=== PATIENT | female | born 1955 | race African-American/Black ===

== ENCOUNTER → 2016-06-26 | Outpatient (CLI) | payer OTHER ==
[~2016-06-26] MED LIST: AMLO10TA2 PO; ASPI1TAB69 PO; LISI40TA PO; METO50TA PO; MULT1TAB84 PO; POTA10TA2 PO; ROSU1TAB6 PO; TRAM50TA PO
[2016-06-26 07:15] LABS: AUTOMATED NEUTROPHIL # 3.2 TH/MM3 (1.8-7.7); BASOPHIL # 0.1 TH/MM3 (0-0.2); BASOPHIL % 0.8 % (0.0-2.0); EOSINOPHIL # 0.3 TH/MM3 (0-0.4); EOSINOPHIL % 4.5 % (0.0-4.0); HEMATOCRIT 36.2 % (35.0-46.0); HEMO FLAGS DIFF FINAL; LYMPH % 36.2 % (9.0-44.0); LYMPHOCYTE # 2.3 TH/MM3 (1.0-4.8); MEAN CELL VOLUME 93.5 FL (80.0-100.0); MEAN CORPUSCULAR HEMOGLOBIN 31.7 PG (27.0-34.0); MONO % 8.8 % (0.0-8.0); NEUT % 49.7 % (16.0-70.0); PLATELET COUNT 287 TH/MM3 (150-450); RED BLOOD COUNT 3.87 MIL/MM3 (4.00-5.30); RED CELL DISTRIBUTION WIDTH 12.6 % (11.6-17.2); WHITE BLOOD COUNT 6.4 TH/MM3 (4.0-11.0)
[2016-06-26 07:40] LABS: BICARBONATE 22.5 MEQ/L (21.0-32.0); POTASSIUM 3.5 MEQ/L (3.5-5.1)
== END ==
LOC: CLAB 06:43
PROVIDERS: ATTEND Family Medicine
DX: E21.0 Primary hyperparathyroidism (principal); E78.5 Hyperlipidemia, unspecified; I10 Essential (primary) hypertension; E55.9 Vitamin D deficiency, unspecified
CPT/HCPCS: 36415; 80048; 82306; 82330; 83970; 85025

== ENCOUNTER → 2016-12-24 | Outpatient (CLI) | payer OTHER ==
[2016-12-24 07:41] LABS: HEMATOCRIT 37.8 % (35.0-46.0); MEAN CELL VOLUME 94.8 FL (80.0-100.0); MEAN CORPUSCULAR HEMOGLOBIN 32.3 PG (27.0-34.0); MEAN CORPUSCULAR HGB CONC 34.1 % (32.0-36.0); PLATELET COUNT 269 TH/MM3 (150-450); RED BLOOD COUNT 3.99 MIL/MM3 (4.00-5.30); RED CELL DISTRIBUTION WIDTH 12.8 % (11.6-17.2); REVIEW FLAG FINAL; WHITE BLOOD COUNT 6.9 TH/MM3 (4.0-11.0)
[2016-12-24 08:08] LABS: ANION GAP 9 MEQ/L (5-15); AST (GOT) 24 U/L (15-37); BICARBONATE 24.2 MEQ/L (21.0-32.0); BLOOD UREA NITROGEN 21 MG/DL (7-18); CHLORIDE 108 MEQ/L (98-107); GLOMERULAR FILTRATION RATE 83 ML/MIN (>89); GLUCOSE,FASTING 90 MG/DL (74-99); POTASSIUM 3.9 MEQ/L (3.5-5.1); SODIUM (NA) 141 MEQ/L (136-145)
[2016-12-24 08:19] LABS: ALKALINE PHOSPHATASE 67 U/L (45-117); ALT (GPT) 34 U/L (10-53); HDL CHOLESTEROL 102.6 MG/DL (40.0-60.0); LDL CHOLESTEROL 75 MG/DL (0-99); TOTAL BILIRUBIN ADULT 0.7 MG/DL (0.2-1.0)
== END ==
LOC: CLAB 07:04
PROVIDERS: ATTEND Family Medicine
DX: E21.3 Hyperparathyroidism, unspecified (principal)
CPT/HCPCS: 36415; 80053; 80061; 82330; 83970; 84443; 85027

== ENCOUNTER → 2017-06-27 | Outpatient (CLI) | payer OTHER | LOC: CLAB 06:58 | PROVIDERS: ATTEND Surgery | DX: E21.3 Hyperparathyroidism, unspecified (principal) | CPT/HCPCS: 36415; 82310; 82330; 83970 ==

== ENCOUNTER → 2017-08-01 | Outpatient (CLI) | payer OTHER ==
[2017-08-01 08:22] LABS: AUTOMATED NEUTROPHIL # 2.8 TH/MM3 (1.8-7.7); BASOPHIL % 0.7 % (0.0-2.0); EOSINOPHIL # 0.3 TH/MM3 (0-0.4); EOSINOPHIL % 5.6 % (0.0-4.0); HEMATOCRIT 38.3 % (35.0-46.0); HEMOGLOBIN 13.1 GM/DL (11.6-15.3); LYMPH % 38.4 % (9.0-44.0); LYMPHOCYTE # 2.3 TH/MM3 (1.0-4.8); MEAN CELL VOLUME 95.1 FL (80.0-100.0); MEAN CORPUSCULAR HEMOGLOBIN 32.4 PG (27.0-34.0); MEAN CORPUSCULAR HGB CONC 34.1 % (32.0-36.0); MEAN PLATELET VOLUME 7.6 FL (7.0-11.0); MONO % 7.8 % (0.0-8.0); MONOCYTE # 0.5 TH/MM3 (0-0.9); NEUT % 47.5 % (16.0-70.0); PLATELET COUNT 275 TH/MM3 (150-450); RED BLOOD COUNT 4.03 MIL/MM3 (4.00-5.30); RED CELL DISTRIBUTION WIDTH 12.8 % (11.6-17.2); WHITE BLOOD COUNT 5.9 TH/MM3 (4.0-11.0)
--- NOTE | 2017-08-01 20:00 | EKG ---
Date Performed: 08/01/2017 Time Performed: 08:30:00 PTAGE: 62 years EKG: Sinus rhythm with PVC(s). Ant/septal and lateral ST-T changes may be due to myocardial ischemia Since previous tr acing, no significant change noted Abnormal ECG PREVIOUS TRACING : 07/24/2014 09.04 DOCTOR: David Romo Interpretating Date/Time 08/01/2017 19:55:56
== END ==
LOC: CLAB 07:56
PROVIDERS: ATTEND Surgery
DX: E21.3 Hyperparathyroidism, unspecified (principal); R94.31 Abnormal electrocardiogram [ECG] [EKG]
CPT/HCPCS: 36415; 85025; 93005

== ENCOUNTER → 2017-09-18 | Outpatient (CLI) | payer OTHER | LOC: CLAB 07:36 | PROVIDERS: ATTEND Surgery | DX: E21.3 Hyperparathyroidism, unspecified (principal) | CPT/HCPCS: 36415; 82306; 82310; 82330; 83970 ==

== ENCOUNTER → 2017-10-10 | Outpatient (CLI) | payer OTHER ==
[2017-10-10 08:34] LABS: AUTOMATED NEUTROPHIL # 3.3 TH/MM3 (1.8-7.7); BASOPHIL # 0.1 TH/MM3 (0-0.2); BASOPHIL % 0.8 % (0.0-2.0); EOSINOPHIL # 0.3 TH/MM3 (0-0.4); EOSINOPHIL % 4.6 % (0.0-4.0); HEMATOCRIT 39.8 % (35.0-46.0); HEMOGLOBIN 13.5 GM/DL (11.6-15.3); LYMPH % 36.3 % (9.0-44.0); LYMPHOCYTE # 2.4 TH/MM3 (1.0-4.8); MEAN CELL VOLUME 94.6 FL (80.0-100.0); MEAN CORPUSCULAR HEMOGLOBIN 32.2 PG (27.0-34.0); MEAN CORPUSCULAR HGB CONC 34.1 % (32.0-36.0); MONO % 9.4 % (0.0-8.0); MONOCYTE # 0.6 TH/MM3 (0-0.9); NEUT % 48.9 % (16.0-70.0); PLATELET COUNT 280 TH/MM3 (150-450); RED CELL DISTRIBUTION WIDTH 13.1 % (11.6-17.2); WHITE BLOOD COUNT 6.7 TH/MM3 (4.0-11.0)
== END ==
LOC: CLAB 08:02
PROVIDERS: ATTEND Surgery
DX: E21.3 Hyperparathyroidism, unspecified (principal)
CPT/HCPCS: 36415; 85025

== ENCOUNTER 2017-10-21 05:47 | Observation (INO) | payer OTHER ==
[~2017-10-21] VITALS: Ht 157.5 cm; Wt 80.9 kg
[2017-10-21] MEDS ORDERED: ASPI-516 CHEW (06:15)
[2017-10-21] MEDS ORDERED: CHLORHEXIDINE GLUCONATE 2 % 1 PACK (2 CLOTHS) TOPICAL PRN (06:15)
[2017-10-21] MEDS ORDERED: POVIDONE IODINE 5% (ANTISEPSIS KIT) 4 APPLICATIONS EACH NARE PRN (06:15)
[2017-10-21] MEDS ORDERED: SODIUM CHLORID 0.9% 500 ML IV PRN (06:15)
[2017-10-21] MEDS ORDERED: METOPROLOL TARTRATE 25 MG TAB PO PRN (06:15)
[2017-10-21] MEDS ORDERED: LACTATED RINGER'S 1000 ML IV PRN (06:15)
[2017-10-21] MEDS ORDERED: ACETAMINOPHEN 1000 MG/100 ML 100 ML IV ONE (06:31)
[2017-10-21] MEDS ORDERED: PROPOFOL 200 MG/20 ML AMP IV ONE (12:00)
[2017-10-21] MEDS ORDERED: LIDOCAINE HCL 1% PF 5 ML SYRINGE OTHER ONE (12:00)
[2017-10-21] MEDS ORDERED: LABETALOL HCL 100 MG/20 ML VIAL IV ONE (12:00)
[2017-10-21] MEDS ORDERED: DEXAMETHASONE SOD PHOS 4 MG/ML VIAL IV ONE (12:00)
[2017-10-21] MEDS ORDERED: ONDANSETRON HCL 4 MG/2 ML VIAL IV ONE (12:00)
[2017-10-21] MEDS ORDERED: SUCCINYLCHOLINE CHLORIDE 100 MG/5 ML SYRINGE IV PUSH ONE (12:00)
[2017-10-21] MEDS ORDERED: DO NOT ADM ANY ANTICOAGULANT DRUGS PRN (13:21)
[2017-10-21] MEDS ORDERED: MIDAZOLAM HCL 2 MG/2 ML VIAL ONE (13:30)
[2017-10-21] MEDS ORDERED: *ENALAPRILAT 1.25 MG/ML VIAL PERIprocedural Use ONLY ONE (13:32)
[2017-10-21] MEDS ORDERED: *morphine SULFATE 8 MG/ML PERIprocedure ONLY ONE (13:42)
[2017-10-21] MEDS ORDERED: MORPHINE SULFATE 2 MG/ML SYRINGE ONE (15:04)
[2017-10-21] MEDS ORDERED: SODIUM CHLORIDE IV PRN ×2 (15:45)
[2017-10-21] MEDS ORDERED: CALCIUM GLUCONATE IV PRN ×4 (15:45)
[2017-10-21] MEDS ORDERED: NS IV PRN ×2 (15:45)
[2017-10-21] MEDS ORDERED: CALCIUM CARBONATE 1.25 GM (CA 500 MG) TAB PO PRN (15:45)
[2017-10-21] MEDS ORDERED: MORPHINE SULFATE 4 MG/ML INJ IV PRN (15:45)
[2017-10-21] MEDS ORDERED: oxyCODONE/ACETAMINOPHEN 5 MG/325 MG TAB PO PRN ×2 (16:00)
[2017-10-21] MEDS ORDERED: ONDANSETRON ODT 4 MG TAB PO PRN (16:00)
--- NOTE | 2017-10-21 17:15 | PD.OP ---
cc: Rambo Aguilar MD; Philippe Redd MD Operative Report Date of Surgery: Oct 21, 2017 Preoperative Diagnosis: Hyperparathyroidism Postoperative Diagnosis: Hyperparathyroidism Procedure: Attempted MIRP with neck exploration and resection of the right and left superior parathyroid glands Anesthesia: General endotracheal Surgeon: Rambo Aguilar Reed Polisher(s): Beti Macdonald, MS3 Operation and Findings: Operative findings: The patient was found to have enlarged left lobe of the thyroid is slightly enlarged right lobe of the thyroid. She was also found to have 2 greatly enlarged parathyroid glands one in the left superior and one in the right superior position. The right inferior parathyroid gland was of normal size and character. The left inferior gland was not identified. Operative procedure: Patient brought to the operating room after satisfactory general endotracheal anesthesia obtained, the neck was hyperextended, then prepped and draped in the usual sterile fashion. A 2.5 cm incision was made transversely several centimeters above the sternal notch and carried down sharply through the subcutaneous tissue with the cautery being used for hemostasis. The platysma was divided transversely, after which the midline was identified and incised longitudinally. Dissection was then carried out to identify the left inferior pole of the thyroid. An attempt was made to bring the inferior lobe of the thyroid as well as the middle portion of the gland into the incision but due to the grossly enlarged size of the thyroid it was not possible. It was decided that point to proceed with a formal neck exploration and a transverse standard collar incision was made, carried out sharply through the subcutaneous tissue with cautery being used for hemostasis. The dissection was carried out to match the first portion of the procedure and a plane was developed anterior to the fascia of the sternocleidomastoids superiorly and inferiorly. A thyroid retractor was then placed and the midline of the neck opened longitudinally. The left lobe of the thyroid gland was then rotated medially and dissection carried out superiorly whereupon the grossly enlarged superior parathyroid gland was identified. It was left in place and dissection was carried out to identify the left inferior parathyroid gland. Despite an extensive search no gland was identified. Attention was then turned to the superior lobe of the thyroid and the superior parathyroid on the right side was identified with minimal difficulty and with minimal dissection. It was removed by dividing its blood supply with the harmonic scalpel and was sent for frozen section which revealed hyperplastic parathyroid tissue. The dissection was then carried out in the area of the right inferior gland and it was identified with minimal difficulty and seemed to be of normal size and character as noted above. Throughout the dissection of both sides the nerve monitor was used to identify the position of the recurrent nerve and it was identified in its course particularly on the right side. He remained intact throughout the entire procedure. Attention was then again turned to the left inferior side and once again no glandular material could be identified lateral to the thyroid to the extent of the carotid sheath and medially to the trachea. The gland was not identified posterior to the left inferior pole of the thyroid nor was seen to be within 4 cm of dissected tissue inferior to the inferior pole of the thyroid. At that point the left superior parathyroid gland was removed by dividing its blood supply with the harmonic scalpel. Is sent for permanent pathology and hemostasis was checked for and found to be satisfactory. A piece of Seprafilm was crushed and placed posterior to the gland on both sides as well as anterior to the gland. Small amount of powdered Surgicel was placed within the wound. Hemostasis was again checked for and found to be satisfactory. The fascia of the midline was closed with a running 3-0 Vicryl suture. The subcutaneous tissue was closed with interrupted 3-0 Vicryl sutures and the skin closed with interrupted 4-0 PDS subcuticular stitches. Steri-Strips were applied the patient was then awakened and taken from the operating room, in satisfactory condition, having tolerated the procedure without problem. Estimated blood loss was 75 mL's. The instrument, sponge, needle counts were reported as being correct 2 at the end of the procedure. Rambo Aguilar MD Oct 21, 2017 17:15
[2017-10-21] MEDS: METOPROLOL TARTRATE 50 MG TAB PO SCH (20:14)
[2017-10-21] MEDS: MORPHINE SULFATE 8 MG/ML INJ IV PUSH PRN (20:17)
[2017-10-21 20:18] VITALS: BP 172/93; PULSE 87; RESP 16; TEMP 97.9; O2SAT 94
[2017-10-22] VITALS: BP 157/77; PULSE 82; RESP 18; TEMP 98; O2SAT 92
[2017-10-22 04:00] VITALS: BP 155/78; PULSE 89; RESP 17; TEMP 97.3; O2SAT 93
[2017-10-22 08:00] VITALS: BP 150/81; PULSE 87; RESP 18; TEMP 97.9; O2SAT 94
[2017-10-22] MEDS: MORPHINE SULFATE 8 MG/ML INJ IV PUSH PRN (08:30)
[2017-10-22] MEDS ORDERED: POTASSIUM CHLORIDE 10 MEQ CONTROLLED RELEASE TAB PO SCH (09:00)
[2017-10-22] MEDS ORDERED: LISINOPRIL 20 MG TAB PO SCH (09:00)
[2017-10-22] MEDS: METOPROLOL TARTRATE 50 MG TAB PO SCH (09:47)
[2017-10-22 12:00] VITALS: BP 144/73; PULSE 95; RESP 17; TEMP 97.3; O2SAT 94
[2017-10-22] MEDS ORDERED: MORPHINE SULFATE 4 MG/ML INJ IV PRN ×2 (14:15)
[2017-10-22] MEDS ORDERED: oxyCODONE/ACETAMINOPHEN 5 MG/325 MG TAB PO PRN ×2 (14:30)
[2017-10-22] MEDS ORDERED: ONDANSETRON ODT 4 MG TAB PO PRN (14:30)
== END 2017-10-22 16:48 | disposition home or self-care (01) ==
LOC: HSDC 05:47 → N07A 13:20 → HSDC 13:20 → N07A 16:13
PROVIDERS: ADMIT Surgery; ATTEND Surgery
DX: E21.3 Hyperparathyroidism, unspecified (principal); I10 Essential (primary) hypertension; E78.5 Hyperlipidemia, unspecified
CPT/HCPCS: 00320; 60500; 78808; 82310; 88305; 88331; 96374; 96376; A9500; C1765; G0378; J0131; J0330; J1100; J2250; J2270; J2405; J3010

== ENCOUNTER → 2017-10-30 | Outpatient (CLI) | payer OTHER ==
[~2017-10-30] MED LIST changes: +ASPI-516 CHEW; -ASPI1TAB69 PO; -MULT1TAB84 PO; -ROSU1TAB6 PO; -TRAM50TA PO
[2017-10-30 08:48] LABS: ALBUMIN 3.4 GM/DL (3.4-5.0); ALT (GPT) 23 U/L (10-53); AST (GOT) 16 U/L (15-37); BICARBONATE 23.4 MEQ/L (21.0-32.0); BLOOD UREA NITROGEN 18 MG/DL (7-18); CALCIUM 8.8 MG/DL (8.5-10.1); CHLORIDE 112 MEQ/L (98-107); CHOLESTEROL 237 MG/DL (120-200); CREATININE 0.86 MG/DL (0.50-1.00); GLOMERULAR FILTRATION RATE 81 ML/MIN (>89); GLUCOSE,FASTING 103 MG/DL (74-99); SODIUM (NA) 144 MEQ/L (136-145)
[2017-10-30 08:51] LABS: ALKALINE PHOSPHATASE 70 U/L (45-117); CHOLESTEROL/ HDL RATIO 5.39 RATIO; HDL CHOLESTEROL 43.9 MG/DL (40.0-60.0); LDL CHOLESTEROL 162 MG/DL (0-99); TOTAL BILIRUBIN ADULT 0.5 MG/DL (0.2-1.0); TOTAL PROTEIN 7.2 GM/DL (6.4-8.2); TRIGLYCERIDES 158 MG/DL (42-150)
== END ==
LOC: CLAB 07:33
PROVIDERS: ATTEND Family Medicine
DX: E21.3 Hyperparathyroidism, unspecified (principal); E78.2 Mixed hyperlipidemia
CPT/HCPCS: 36415; 80053; 80061; 82330; 83970

== ENCOUNTER 2018-02-15 16:36 | Inpatient (IN) ==
[2018-02-15] MEDS ORDERED: MethylPREDNISolone Sod Succinate Inj 125 MG/2 ML Vial IV.PUSH ONE (16:40)
[2018-02-15] MEDS ORDERED: Famotidine PF Inj 20 MG/2 ML Vial IV.PUSH ONE (16:40)
--- NOTE | 2018-02-15 17:09 | ED ---
HPI General Chief complaint: Allergic Reaction Stated complaint: swollen tongue Time Seen by Provider: 02/15/18 16:40 Source: patient and family Mode of arrival: ambulatory Limitations: no limitations History of Present Illness HPI narrative: 63-year-old female that presents to the ED for evaluation of allergic reaction. Patient reports that she has been having swelling tongue for the past 2-3 hours. Per patient and family member they went to have [employer] today for lunch and after this she developed the swelling. Patient herself did not want to come but they took Benadryl with minimal relief. essentially "force the patient " To come here. Patient denies any history of this in the past. She does state that she had shellfish today but she had shellfish in the past. She denies any other medical issues. She does take lisinopril. Denies any urinary or bowel movement issues. No chest pain or shortness of breath. Her tongue is severely swelling and most of the history is obtained from the as patient cannot really talk for the most part. Related Data Home Medications Medication Instructions Recorded Confirmed amlodipine 10 mg PO DAILY 02/15/18 02/15/18 lisinopril 10 mg PO DAILY 02/15/18 02/15/18 metoprolol tartrate 50 mg PO TID 02/15/18 02/15/18 potassium chloride [Klor-Con 10] 10 meq PO DAILY 02/15/18 02/15/18 rosuvastatin [Crestor] 10 mg PO DAILY 02/15/18 02/15/18 Allergies Allergy/AdvReac Type Severity Reaction Status Date / Time hydrocodone Allergy Severe Dizziness Unverified 02/15/18 16:45 shellfish derived Allergy Anaphylaxis Verified 02/15/18 16:45 Review of Systems ROS: all other systems reviewed are negative [facility] Medical History Medical History Hypercholesteremia (Acute) Hypertension (Acute) Surgical History Surgical History H/O thyroidectomy (Acute) Social History Social History Substance History: No History of Abuse Second Hand Smoke Exposure: No Smoking Status: Unknown if ever smoked How Often Do You Have a Drink Containing Alcohol: Unable to Obtain Recent Travel in [facility] within the Last 8 Weeks: No Recent Out of Country Travel within the Last 8 Weeks: No Immunization History Tetanus Immunization: <5 Years Exam Narrative Exam Narrative: GENERAL: Well-appearing SKIN: Focused skin assessment warm/dry. HEAD: Atraumatic. Normocephalic. EYES: Pupils equal and round. No scleral icterus. No injection or drainage. ENT: No nasal bleeding or discharge. Mucous membranes pink and moist. Tongue is midline but severely swollen coming out of the mouth. Part of the uvula is visualized and does not appear to be swollen. Very hard to visualize however. NECK: Trachea midline. No JVD. CARDIOVASCULAR: Regular rate and rhythm. No murmur appreciated. RESPIRATORY: No accessory muscle use. Clear to auscultation. Breath sounds equal bilaterally. GASTROINTESTINAL: Abdomen soft, non-tender, nondistended. Hepatic and splenic margins not palpable. MUSCULOSKELETAL: No obvious deformities. No clubbing. No cyanosis. No edema. Full range of motion of the upper and lower extremities bilaterally. 2+ pulses bilaterally. NEUROLOGICAL: Awake and alert. No obvious cranial nerve deficits. Motor grossly within normal limits. Normal speech. PSYCHIATRIC: Appropriate mood and affect; insight and judgment normal. Course Initial Documented Vital Signs Temperature 98.8 F 02/15/18 16:49 Pulse Rate 102 H 02/15/18 16:49 Respiratory Rate 24 02/15/18 16:49 Blood Pressure 196/103 H 02/15/18 16:49 Pulse Oximetry 98 02/15/18 16:49 Last Documented Vital Signs Temperature 98.2 F 02/15/18 19:30 Pulse Rate 108 H 02/15/18 22:00 Respiratory Rate 16 02/15/18 22:00 Blood Pressure 173/86 H 02/15/18 22:00 Pulse Oximetry 100 02/15/18 22:00 Medical Decision Making MDM Narrative Medical decision making narrative: 63-year-old female that presents to the ED for evaluation of swelling to the mouth. Patient was properly examined and was found to have signs and symptoms concerning for anaphylaxis and angioedema. My attending Dr. Betancur was made aware of findings and immediately evaluate the patient. Patient was started on epinephrine, Solu-Medrol, Benadryl and Pepcid. My attendings recommendation FFP was started. Patient was reassessed after 30 minutes and still very symptomatic. My attending Dr. Lightburn himself spoke with anesthesia as well as ENT. Anesthesia came at that site and recommended ENT consult. Anesthesia will take the patient to the OR to get him intubated as the symptoms continue. My attending himself spoke with Dr. Mejia for intensive care unit who agreed to admission to his service. Patient was admitted to the intensive care unit. Patient and family agree with procedure and plan. They understand reasons to need intubation to protect airway secondary to significant angioedema. Medical Screen Exam Complete: Yes Emergency Medical Condition: Yes Differential Diagnosis Differential Diagnosis: Angioedema versus anaphylaxis versus allergic reaction Medical Records Medical records reviewed: Yes I reviewed the patient's medical records. Lab Data Lab results reviewed: Yes I reviewed the patient's lab results. Result diagrams: 02/15/18 16:56 02/15/18 16:56 Lab Results 02/15/18 02/15/18 02/15/18 Range/Units 16:51 16:56 16:56 WBC 8.8 (4.0-11.0) th/mm3 RBC 4.09 (4.00-5.30) mil/mm3 Hgb 13.6 (11.6-15.3) gm/dL Hct 39.3 (35.0-46.0) % MCV 96.2 (80.0-100.0) fL MCH 33.2 (27.0-34.0) pg MCHC 34.6 (32.0-36.0) % RDW 12.8 (11.6-17.2) % Plt Count 281 (150-450) th/mm3 MPV 8.2 (7.0-11.0) fL Neut % (Auto) 56.3 (16.0-70.0) % Lymph % (Auto) 30.5 (9.0-44.0) % Charlton % (Auto) 8.9 H (0.0-8.0) % Eos % (Auto) 3.6 (0.0-4.0) % Baso % (Auto) 0.7 (0.0-2.0) % Neut # (Auto) 5.0 (1.8-7.7) th/mm3 Lymph # (Auto) 2.7 (1.0-4.8) th/mm3 Charlton # (Auto) 0.8 (0.0-0.9) th/mm3 Eos # (Auto) 0.3 (0.0-0.4) th/mm3 Baso # (Auto) 0.1 (0.0-0.2) th/mm3 WBC Differential . Differential Comment Auto diff final Puncture Site Patient Temperature O2 Saturation (90-100) % ABG pH (7.380-7.420) ABG pCO2 (38-42) mmHg ABG pO2 (61-120) mmHG ABG HCO3 (22-26) mmol/L ABG O2 Content (12.0-20.0) Vol % ABG Base Excess (-2-2) mmol/L ABG Methemoglobin (0-2) % Mervin Test Hemoglobin (12.0-16.0) G/DL Carboxyhemoglobin (0-4) % O2 Delivery Device Vent Setting Inspired O2 % Critical Value Sodium (136-145) meq/L Potassium (3.5-5.1) meq/L Chloride (98-107) meq/L Carbon Dioxide (21.0-32.0) meq/L Anion Gap (5-15) meq/L BUN (7-18) mg/dL Creatinine (0.50-1.00) mg/dL Estimated GFR (>89) mL/min POC Glucose (68-110) mg/dl Random Glucose (74-106) mg/dL Calcium (8.5-10.1) mg/dL Blood Type O Positive Blood Type Recheck Not needed Antibody Screen Negative Blood Bank Comment 02/15/18 02/15/18 02/15/18 Range/Units 16:56 18:57 21:05 WBC (4.0-11.0) th/mm3 RBC (4.00-5.30) mil/mm3 Hgb (11.6-15.3) gm/dL Hct (35.0-46.0) % MCV (80.0-100.0) fL MCH (27.0-34.0) pg MCHC (32.0-36.0) % RDW (11.6-17.2) % Plt Count (150-450) th/mm3 MPV (7.0-11.0) fL Neut % (Auto) (16.0-70.0) % Lymph % (Auto) (9.0-44.0) % Charlton % (Auto) (0.0-8.0) % Eos % (Auto) (0.0-4.0) % Baso % (Auto) (0.0-2.0) % Neut # (Auto) (1.8-7.7) th/mm3 Lymph # (Auto) (1.0-4.8) th/mm3 Charlton # (Auto) (0.0-0.9) th/mm3 Eos # (Auto) (0.0-0.4) th/mm3 Baso # (Auto) (0.0-0.2) th/mm3 WBC Differential Differential Comment Puncture Site Right radial Patient Temperature 98.6 O2 Saturation 97 (90-100) % ABG pH 7.33 L (7.380-7.420) ABG pCO2 41 (38-42) mmHg ABG pO2 150 H (61-120) mmHG ABG HCO3 21 L (22-26) mmol/L ABG O2 Content 18.3 (12.0-20.0) Vol % ABG Base Excess -3.7 L (-2-2) mmol/L ABG Methemoglobin 1.4 (0-2) % Mervin Test Present Hemoglobin 13.3 (12.0-16.0) G/DL Carboxyhemoglobin 0.7 (0-4) % O2 Delivery Device Ventilator Vent Setting Prvc/16/500/1.0/+5 Inspired O2 50 % Critical Value No Sodium 144 (136-145) meq/L Potassium 4.1 (3.5-5.1) meq/L Chloride 109 H (98-107) meq/L Carbon Dioxide 24.4 (21.0-32.0) meq/L Anion Gap 11 (5-15) meq/L BUN 19 H (7-18) mg/dL Creatinine 1.05 H (0.50-1.00) mg/dL Estimated GFR 64 L (>89) mL/min POC Glucose 189 H (68-110) mg/dl Random Glucose 95 (74-106) mg/dL Calcium 9.3 (8.5-10.1) mg/dL Blood Type Blood Type Recheck Antibody Screen Blood Bank Comment Imaging Data Radiologist's impression: Chest X-Ray 02/15/18 00:00 CONCLUSION: 1. ET tube tip in good position. 2. Subsegmental consolidative infiltrate left lower lung. Discharge Plan Discharge Disposition Patient Disposition: 30 Still Patient Discharge Details Diagnosis: Allergic angioedema, Severe tongue swelling Physicians Team ED Provider: Jus Betancur ED Midlevel Provider: Jerome Davis Primary Care Provider: Philippe Redd Attending Provider: Jerri Mejia Discharge Interventions Interventions: ED Discharge Assessment Last Done: 02/15/18 18:18 Vital Signs Last Done: 02/15/18 17:30 Status ED Status: Left Department Discharge Information Discharge Date/Time: 02/15/18 18:00
[2018-02-15 17:12] LABS: Baso # (Auto) 0.1 th/mm3 (0.0-0.2); Baso % (Auto) 0.7 % (0.0-2.0); Eos # (Auto) 0.3 th/mm3 (0.0-0.4); Eos % (Auto) 3.6 % (0.0-4.0); Hematocrit 39.3 % (35.0-46.0); Hemoglobin 13.6 gm/dL (11.6-15.3); Lymph # (Auto) 2.7 th/mm3 (1.0-4.8); Lymph % (Auto) 30.5 % (9.0-44.0); Mean Corpuscular HGB Conc 34.6 % (32.0-36.0); Mean Corpuscular Hemoglobin 33.2 pg (27.0-34.0); Mean Corpuscular Volume 96.2 fL (80.0-100.0); Mean Platelet Volume 8.2 fL (7.0-11.0); Mono # (Auto) 0.8 th/mm3 (0.0-0.9); Mono % (Auto) 8.9 % (0.0-8.0); Neut % (Auto) 56.3 % (16.0-70.0); Platelet Count 281 th/mm3 (150-450); Red Blood Count 4.09 mil/mm3 (4.00-5.30); Red Cell Distribution Width 12.8 % (11.6-17.2); White Blood Count 8.8 th/mm3 (4.0-11.0)
[2018-02-15 17:25] LABS: Calcium 9.3 mg/dL (8.5-10.1); Carbon Dioxide 24.4 meq/L (21.0-32.0); Potassium 4.1 meq/L (3.5-5.1)
[2018-02-15] MEDS ORDERED: Succinylcholine Inj 200 MG/10 ML Vial ONE ×2 (17:33→17:35)
[2018-02-15] MEDS ORDERED: Etomidate Inj 40 MG/20 ML Vial IV.PUSH ONE (17:36)
[2018-02-15] MEDS ORDERED: Sod Chloride 0.9% Inj 1,000 ML IV.CONT SCH (17:45)
[2018-02-15] MEDS ORDERED: Esmolol Bolus Inj 100 MG/10 ML Vial IV.PUSH ONE (17:54)
[2018-02-15] MEDS ORDERED: Glycopyrrolate Inj 1 MG/5 ML Syringe IV.PUSH ONE (17:54)
[2018-02-15] MEDS ORDERED: LIDOCAINE 4% TOPICAL ONE (18:02)
[2018-02-15] MEDS ORDERED: Propofol 1000 mg/100 ml Inj 1,000 MG/100 ML BOTTLE ONE (18:32)
--- NOTE | 2018-02-15 18:32 | P.HPCC ---
History of Present Illness Primary Care Physician: Philippe Redd MD History of Present Illness: 63-year-old female that presents for evaluation of allergic reaction. Patient reports that she has been having swelling tongue for the past 2-3 hours. Per patient and family member they went to have [employer] today for lunch and after this she developed the swelling. Patient herself did not want to come but they took Benadryl with minimal relief. essentially "force the patient " To come here. Patient denies any history of this in the past. She does state that she had shellfish today but she had shellfish in the past. She denies any other medical issues. She does take lisinopril for many years. Denies any urinary or bowel movement issues. No chest pain or shortness of breath. Her tongue is severely swelling and most of the history is obtained from the as patient cannot really talk for the most part. In the emergency department her airway appears to be significantly compromised and she was taken to operating room for fibroscopy nasal intubation by canvassing manager. Inpatient Certification: I certify that the inpatient services were ordered in accordance with Medicare regulations governing the order. This includes certification that hospital inpatient services are reasonable and necessary and in the case of services not specified as inpatient-only under 42 CFR 419.22(n), that they are appropriately provided as inpatient services in accordance to with the 2-midnight benchmark under 43 CFR 412.3(e) Estimated Total Length of Stay (Days): 5 Plans for Post Hospital Care: Not yet determined Review of Systems unobtainable due to endotracheal tube PMFSH - History History Provided By: Patient - Medical History Medical History: Medical History (Last Reviewed 02/15/18 @ 17:07 by KATHRYN Bazan) Hypercholesteremia Hypertension - Surgical History Surgical History: Surgical History (Last Reviewed 02/15/18 @ 17:07 by KATHRYN Bazan) H/O thyroidectomy - Tobacco History Second Hand Smoke Exposure: No Smoking Status: Former smoker - Alcohol History How Often Do You Have a Drink Containing Alcohol: 4 or more times a week - Substance Use History Substance History: No History of Abuse - Travel History Recent Travel in the [place] Within the Last 8 Weeks: No Recent Travel Out of the Country Within the Last 8 Weeks: No - Immunization History Tetanus Immunization: <5 Years Medications and Allergies Active Medications: Active Medications Albuterol (Duoneb Neb (Prn)) 1 ampul NEB Q2HR NEB PRN PRN Reason: SHORTNESS OF BREATH Albuterol (Duoneb Neb (Lm)) 1 ampul NEB Q6HR NEB LM Chlorhexidine Gluconate (Chlorhexidine 2% Cloth) 3 pack TOPICAL DAILY@0400 LM Stop: 02/21/18 03:59 Chlorhexidine Gluconate (Chlorhexidine 2% Cloth) 3 pack TOPICAL DAILY@0400 PRN PRN Reason: Extra cloth needed Stop: 02/21/18 03:59 Diphenhydramine HCl (Benadryl Inj) 50 mg IV.PUSH Q6H LM Famotidine (Pepcid) 20 mg PO BID LM Famotidine (Pepcid Pf Inj) 20 mg IV.PUSH Q12HR LM Fentanyl Citrate (Fentanyl Inj) 50 mcg IV.PUSH Q1H PRN PRN Reason: SEE LABEL COMMENTS Sodium Chloride (Ns Inj) 1,000 mls @ 125 mls/hr IV.CONT .Q8H LM Stop: 02/16/18 01:44 Sodium Chloride (Ns Flush) 2 ml IV.FLUSH PRN PRN PRN Reason: FLUSH AFTER USING IV ACCESS Last Admin: 02/15/18 16:54 Dose: 2 ml Sodium Chloride (Ns Flush) 2 ml IV.FLUSH PRN PRN PRN Reason: FLUSH AFTER USING IV ACCESS Allergies Allergy/AdvReac Type Severity Reaction Status Date / Time hydrocodone Allergy Severe Dizziness Unverified 02/15/18 16:45 shellfish derived Allergy Anaphylaxis Verified 02/15/18 16:45 Home Medications Medication Instructions Recorded Confirmed Type amlodipine 10 mg PO DAILY 02/15/18 02/15/18 History lisinopril 10 mg PO DAILY 02/15/18 02/15/18 History metoprolol tartrate 50 mg PO TID 02/15/18 02/15/18 History potassium chloride [Klor-Con 10] 10 meq PO DAILY 02/15/18 02/15/18 History rosuvastatin [Crestor] 10 mg PO DAILY 02/15/18 02/15/18 History Results - Labs CBC & Chem 7: 02/15/18 16:56 02/15/18 16:56 Labs: Short CBC 02/15/18 Range/Units 16:56 WBC 8.8 (4.0-11.0) th/mm3 Hgb 13.6 (11.6-15.3) gm/dL Hct 39.3 (35.0-46.0) % Plt Count 281 (150-450) th/mm3 [facility] 02/15/18 16:56 Sodium 144 Potassium 4.1 Chloride 109 H Carbon Dioxide 24.4 BUN 19 H Creatinine 1.05 H Calcium 9.3 - Imaging Impressions Chest X-Ray 02/15/18 00:00 CONCLUSION: 1. ET tube tip in good position. 2. Subsegmental consolidative infiltrate left lower lung. Exam Vital signs: Vital Signs 02/15/18 16:49 02/15/18 17:15 02/15/18 17:30 Temperature 98.8 F Pulse Rate 102 H 118 H Respiratory Rate 24 21 Blood Pressure 196/103 H 195/96 H 190/86 H Pulse Oximetry 99 96 Intake & Output 02/14/18 02/15/18 02/15/18 18:59 06:59 18:59 Weight 76.204 kg - Constitutional moderate distress - Routine HEENT Exam Head: Present: normocephalic, atraumatic Eye: Present: PERRL ENT: Present: mucous membranes moist - Routine Neck Exam Present: supple. Absent: JVD, carotid bruit - Routine Respiratory Exam Present: patient mechanically ventilated. Absent: stridor, wheezes, crackles - Routine Cardiovascular Exam Present: RRR, S1, S2. Absent: murmur, gallop, rubs - Routine Abdominal Exam Present: soft, normoactive bowel sounds. Absent: tenderness, distended - Routine Extremities Exam Absent: cyanosis, clubbing - Routine Skin Exam Present: intact. Absent: cyanosis, erythema - Routine Neurological Exam Present: moving all extremities Septic Shock Reassessment Septic shock perfusion: reassessment completed Caprini VTE Risk Assessment Caprini VTE Risk Assessment: Moderate/High Risk (score >= 2) Caprini Risk Assessment Model: Point Value = 1 Point Value = 2 Point Value = 3 Point Value = 5 Age 41-60 Minor surgery BMI > 25 kg/m2 Swollen legs Varicose veins or History of unexplained or recurrent spontaneous Oral contraceptives or hormone replacement Sepsis (< 1 month) Serious lung disease, including pneumonia (< 1 month) Abnormal pulmonary function Acute myocardial infarction Congestive heart failure (< 1 month) History of inflammatory bowel disease Medical patient at bed rest Age 61-74 Arthroscopic surgery Major open surgery (> 45 min) Laparoscopic surgery (> 45 min) Malignancy Confined to bed (> 72 hours) Immobilizing plaster cast Central venous access Age >= 75 History of VTE Family history of VTE Factor V Leiden Prothrombin [id number] Lupus anticoagulant Anticardiolipin antibodies Elevated serum homocysteine Heparin-induced thrombocytopenia Other congenital or acquired thrombophilia Stroke (< 1 month) Elective arthroplasty Hip, pelvis, or leg fracture Acute spinal cord injury (< 1 month) Prophylaxis Regimen: Total Risk Factor Score Risk Level Prophylaxis Regimen 0-1 Low Early ambulation 2 Moderate Order ONE of the following: *Sequential Compression Device (SCD) *Heparin 5000 units SQ BID 3-4 Higher Order ONE of the following medications: *Heparin 5000 units SQ TID *Enoxaparin/Lovenox 40 mg SQ daily (WT < 150 kg, CrCl > 30 mL/min) *Enoxaparin/Lovenox 30 mg SQ daily (WT < 150 kg, CrCl > 10-29 mL/min) *Enoxaparin/Lovenox 30 mg SQ BID (WT < 150 kg, CrCl > 30 mL/min) AND/OR *Sequential Compression Device (SCD) 5 or more Highest Order ONE of the following medications: *Heparin 5000 units SQ TID (Preferred with Epidurals) *Enoxaparin/Lovenox 40 mg SQ daily (WT < 150 kg, CrCl > 30 mL/min) *Enoxaparin/Lovenox 30 mg SQ daily (WT < 150 kg, CrCl > 10-29 mL/min) *Enoxaparin/Lovenox 30 mg SQ BID (WT < 150 kg, CrCl > 30 mL/min) AND *Sequential Compression Device (SCD) Assessment and Plan - Assessment and Plan Plan: Respiratory formula -Intubated for an airway protection -No weaning until angioedema resolve -Vent bundle Angioedema -Continue steroid -H1 H2 antagonists Hypertension -Continue metoprolol and Norvasc -Labetalol PRN Dyslipidemia -Rosuvastatin DVT GI prophylaxis -Teds SCDs -Subcu Lovenox -Pepcid 35 minutes of critical care
[2018-02-15] MEDS ORDERED: *morphine SULFATE 4 MG/ML PERIprocedure ONLY ONE (18:56)
[2018-02-15] MEDS ORDERED: *morphine SULFATE 10 MG/ML PERIprocedure ONLY ONE (19:06)
--- NOTE | 2018-02-15 19:42 | XR ---
EXAM DATE: 02/15/2018 12:00 AM EDT AGE/SEX: 63 years / Female INDICATIONS: E-T tube placement. CLINICAL DATA: This is the patient's initial encounter. Patient reports that signs and symptoms have been present for 1 day and indicates a pain score of Nonresponsive. MEDICAL/SURGICAL HISTORY: Non-responsive. Non-responsive. COMPARISON: [facility] [place], CHEST PA & LAT, 07/24/2014. . FINDINGS: Endotracheal tube tip well above the daily. Gastric tube traverses the [id number]. Patchy areas o f consolidation with air bronchograms in the left lower lung. The right lung is clear. Both hemidiaph ragms well delineated. CONCLUSION: 1. ET tube tip in good position. 2. Subsegmental consolidative infiltrate left lower lung. Electronically signed by: Celestino Leiva MD 02/15/2018 7:40 PM EDT
[2018-02-15] MEDS: fentaNYL Citrate Inj 100 MCG/2 ML Ampul IV.PUSH PRN (20:26)
[2018-02-15] MEDS: Propofol 1000 mg/100 ml Inj 1,000 MG/100 ML BOTTLE IV.CONT PRN (20:51)
[2018-02-15] MEDS: Famotidine PF Inj 20 MG/2 ML Vial IV.PUSH SCH (20:51)
[2018-02-15] MEDS: Labetalol HCl Inj 100 MG/20 ML Vial IV.PUSH PRN (20:56)
[2018-02-15] MEDS: Famotidine 20 MG Tablet PO SCH (21:11)
[2018-02-15 21:29] LABS: ABG Base Excess -3.7 mmol/L (-2-2); ABG PCO2 41 mmHg (38-42); ABG PO2 150 mmHG (61-120)
[2018-02-15] MEDS: Oral Hygiene Kit OROPHARYNG SCH (23:51)
[2018-02-16] MEDS: Labetalol HCl Inj 100 MG/20 ML Vial IV.PUSH PRN (03:18)
[2018-02-16] MEDS: Chlorhexidine Gluconate 2% 1 Pack (2 Cloths) TOPICAL SCH (03:59)
[2018-02-16] MEDS: Oral Hygiene Kit OROPHARYNG SCH ×4 (03:59→23:51)
[2018-02-16] MEDS ORDERED: Chlorhexidine Gluconate 2% 1 Pack (2 Cloths) TOPICAL PRN (04:00)
[2018-02-16] MEDS: Propofol 1000 mg/100 ml Inj 1,000 MG/100 ML BOTTLE IV.CONT PRN ×5 (04:46→19:47)
[2018-02-16] MEDS: fentaNYL Citrate Inj 100 MCG/2 ML Ampul IV.PUSH PRN ×2 (04:48→06:37)
[2018-02-16] MEDS ORDERED: niCARdipine Inj 25 MG in Sodium Chlor 0.9% Inj 240 ML IV.CONT PRN (07:16)
[2018-02-16] MEDS ORDERED: hydrALAZINE HCl Inj 20 MG/ML Vial IV.PUSH PRN (07:17)
--- NOTE | 2018-02-16 07:20 | P.PNCC ---
Subjective Subjective Remarks/Hospital Course: 63-year-old female that presents for evaluation of allergic reaction. Patient reports that she has been having swelling tongue for the past 2-3 hours. Per patient and family member they went to have [employer] today for lunch and after this she developed the swelling. Patient herself did not want to come but they took Benadryl with minimal relief. essentially "force the patient " To come here. Patient denies any history of this in the past. She does state that she had shellfish today but she had shellfish in the past. She denies any other medical issues. She does take lisinopril for many years. No chest pain or shortness of breath. Her tongue is severely swollen and most of the history is obtained from the as patient cannot really talk for the most part. In the emergency department her airway appears to be significantly compromised and she was taken to operating room for fibroscopy nasal intubation by coloring room worker. SUBJ 02/16: Remains intubated heavily sedated with propofol. Severe tongue swelling with protrusion. Hypotensive overnight I have ordered Cardene infusion and as needed IV labetalol. at the bedside updated Objective Vital Signs / I&O: Vital Signs 02/15/18 16:49 02/15/18 17:15 02/15/18 17:30 Temperature 98.8 F Pulse Rate 102 H 118 H Respiratory Rate 24 21 Blood Pressure 196/103 H 195/96 H 190/86 H Pulse Oximetry 99 96 02/15/18 18:43 02/15/18 18:45 02/15/18 19:00 Temperature 98.5 F Pulse Rate 126 H 124 H 120 H Respiratory Rate 16 16 16 Blood Pressure 171/95 H 149/84 H 154/81 H Pulse Oximetry 98 98 99 02/15/18 19:08 02/15/18 19:15 02/15/18 19:20 Temperature Pulse Rate 118 H 120 H Respiratory Rate 16 16 18 Blood Pressure 143/73 H 160/87 H Pulse Oximetry 99 100 02/15/18 19:30 02/15/18 20:00 02/15/18 20:45 Temperature 98.2 F Pulse Rate 118 H 120 H Respiratory Rate 16 16 Blood Pressure 146/73 H 187/97 H Pulse Oximetry 100 100 02/15/18 21:00 02/15/18 21:03 02/15/18 22:00 Temperature Pulse Rate 105 H 108 H Respiratory Rate 16 16 16 Blood Pressure 178/92 H 173/86 H Pulse Oximetry 100 100 100 02/15/18 23:00 02/16/18 00:00 02/16/18 00:21 Temperature 99.4 F Pulse Rate 108 H 113 H Respiratory Rate 16 16 17 Blood Pressure 167/83 H 169/85 H Pulse Oximetry 100 100 99 02/16/18 01:00 02/16/18 02:00 02/16/18 03:00 Temperature Pulse Rate 112 H 111 H 118 H Respiratory Rate 16 16 16 Blood Pressure 166/81 H 176/82 H 205/96 H Pulse Oximetry 99 99 99 02/16/18 03:15 02/16/18 03:45 02/16/18 04:00 Temperature Pulse Rate 120 H 111 H 112 H Respiratory Rate 18 19 19 Blood Pressure 191/93 H 206/93 H 189/92 H Pulse Oximetry 99 99 99 02/16/18 04:30 02/16/18 05:00 02/16/18 06:00 Temperature Pulse Rate 117 H 113 H 113 H Respiratory Rate 19 19 18 Blood Pressure 201/92 H 181/84 H 199/88 H Pulse Oximetry 99 99 99 02/16/18 06:30 Temperature 100.5 F H Pulse Rate 111 H Respiratory Rate 18 Blood Pressure 180/82 H Pulse Oximetry 98 Intake & Output 02/15/18 02/16/18 02/16/18 18:59 06:59 18:59 Intake Total 1800 / 1800 Output Total 1550 / 1550 Balance 250 / 250 Weight 76.204 kg 82.9 kg Intake: IV 1200 / 1200 Diprivan 1000 mg/100 ml Inj 1, 100 / 100 000 mg In 100 ml @ 0 mls/hr . ROUTE .[facility]K-[facility] Rx#:[id number] Diprivan 1000 mg/100 ml Inj 1, 100 / 100 000 mg In 100 ml @ 5 MCG/KG/MIN 2.529 mls/hr IV.CONT TITRATE PRN Rx#:[id number] NS Inj 1,000 ML @ 125 mls/hr IV 1000 / 1000 .CONT .Q8H [facility] Rx#:[id number] Anesthesia Amount 600 / 600 Output: Urine Amount (Catheter) 1550 / 1550 Indwelling Urethral Catheter 1550 / 1550 Gastric Drainage 0 / 0 Orogastric Tube 0 / 0 Other: Weight On Admission 84.3 kg Result Diagrams: 02/15/18 16:56 02/15/18 16:56 Objective Remarks: - Constitutional moderate distress - Routine HEENT Exam Head: normocephalic, atraumatic Eye: PERRL ENT: Severe persistent angioedema with severely swollen and protruding tongue. Oral cavity exam is limited - Routine Neck Exam supple. Absent JVD, carotid bruit - Routine Respiratory Exam Patient mechanically ventilated. No: stridor, wheezes, crackles - Routine Cardiovascular Exam RRR, S1, S2. Absent murmur, gallop, rubs. Hypertensive - Routine Abdominal Exam Soft, normoactive bowel sounds. No tenderness or organomegaly - Routine Extremities Exam No cyanosis, clubbing - Routine Skin Exam Intact. - Routine Neurological Exam Heavily sedated but wakes up easily moves all extremities Assessment and Plan - Assessment and Plan Plan: Neuro: -Keep heavily sedated with propofol and add fentanyl to RASS -3 -No sedation vacation and until angioedema improves for patient safety Resp: Severe angioedema Allergic reaction Acute respiratory Failure -Nasotracheally intubated for an airway protection -No weaning until angioedema resolve -Vent bundle, DuoNeb PRN -Decadron 6 mg IV q6h -H1 H2 antagonists CVS Uncontrolled hypertension -Continue metoprolol and Norvasc -Cardene infusion and IV hydralazine as needed to keep blood pressure less than 160/95 -Labetalol PRN Dyslipidemia -Rosuvastatin GI: -Start tube feeds with Jevity -IV Protonix : -Monitor intake output closely -Receiving 1 L bolus, maintenance fluid at 75 mL/h with normal saline until tube feeds to goal ID: -No evidence of infection at this time ENDO: -Electrolyte replacement per protocol DVT GI prophylaxis -Teds SCDs -Subcu Lovenox -Pepcid 35 minutes of critical care Patient remains very critical with severe life-threatening angioedema. Continue IV steroids and H1/2 antagonist monitor very closely in the ICU. Code Status: Full
[2018-02-16] MEDS ORDERED: Dexamethasone Inj 20 MG/5 ML Vial IV.PUSH STA (07:22)
[2018-02-16] MEDS: fentaNYL 10 mcg/mL Premix Drip 2,500 MCG/250 ML BAG IV.SIG PRN (07:34)
[2018-02-16] MEDS: Sod Chloride 0.9% Inj 1,000 ML IV.CONT SCH ×2 (08:30→20:47)
[2018-02-16] MEDS: Enoxaparin Inj 40 MG/0.4 ML Syringe SQ SCH (08:40)
[2018-02-16] MEDS: Metoprolol Tartrate 50 MG Tablet PO SCH ×3 (08:41→18:13)
[2018-02-16] MEDS: Famotidine PF Inj 20 MG/2 ML Vial IV.PUSH SCH ×2 (08:42→20:46)
[2018-02-16 08:52] LABS: Alanine Aminotransferase 33 U/L (10-53); Albumin 3.3 g/dL (3.4-5.0); Alkaline Phosphatase 63 U/L (45-117); Anion Gap 12 meq/L (5-15); Aspartate Aminotransferase 21 U/L (15-37); Blood Urea Nitrogen 12 mg/dL (7-18); Calcium 8.2 mg/dL (8.5-10.1); Carbon Dioxide 21.9 meq/L (21.0-32.0); Chloride 108 meq/L (98-107); Glomerular Filtration Rate 66 mL/min (>89); Glucose,Random 158 mg/dL (74-106); Potassium 3.9 meq/L (3.5-5.1); Sodium 142 meq/L (136-145); Total Protein 7.3 g/dL (6.4-8.2)
[2018-02-16] MEDS: Chlorhexidine 0.12% Oral Kit 15 ML UDC OROPHARYNG SCH ×2 (09:00→19:48)
[2018-02-16 09:37] LABS: Activated Partial Thrombo Time 25.1 sec (24.3-30.1)
[2018-02-16] MEDS: Beneprotein Powder Packet G-TUBE SCH ×3 (10:04→18:41)
[2018-02-16] MEDS: amLODIPine 10 MG Tablet PO SCH (10:21)
[2018-02-16] MEDS: Famotidine 20 MG Tablet PO SCH (10:22)
[2018-02-17] MEDS: fentaNYL 10 mcg/mL Premix Drip 2,500 MCG/250 ML BAG IV.SIG PRN ×3 (01:00→19:31)
[2018-02-17] MEDS: Propofol 1000 mg/100 ml Inj 1,000 MG/100 ML BOTTLE IV.CONT PRN ×6 (03:27→23:00)
[2018-02-17] MEDS: Chlorhexidine Gluconate 2% 1 Pack (2 Cloths) TOPICAL SCH (03:28)
[2018-02-17] MEDS: Oral Hygiene Kit OROPHARYNG SCH ×4 (03:28→23:21)
[2018-02-17] MEDS ORDERED: Dextrose 50% in Water 50 ML Vial IV.PUSH PRN (07:42)
--- NOTE | 2018-02-17 07:42 | P.PNCC ---
Subjective Subjective Remarks/Hospital Course: 63-year-old female that presents for evaluation of allergic reaction. Patient reports that she has been having swelling tongue for the past 2-3 hours. Per patient and family member they went to have [employer] today for lunch and after this she developed the swelling. Patient herself did not want to come but they took Benadryl with minimal relief. essentially "force the patient " To come here. Patient denies any history of this in the past. She does state that she had shellfish today but she had shellfish in the past. She denies any other medical issues. She does take lisinopril for many years. No chest pain or shortness of breath. Her tongue is severely swollen and most of the history is obtained from the as patient cannot really talk for the most part. In the emergency department her airway appears to be significantly compromised and she was taken to operating room for fibroscopy nasal intubation by night custodian. SUBJ 02/16: Remains intubated heavily sedated with propofol. Severe tongue swelling with protrusion. Hypotensive overnight I have ordered Cardene infusion and as needed IV labetalol. at the bedside updated 02/17 No events overnight. Sedated with Diprivan,fentanyl; and intubated. Afebrile. Objective Vital Signs / I&O: Vital Signs 02/16/18 07:46 02/16/18 08:00 02/16/18 09:00 Temperature Pulse Rate 104 H 87 Respiratory Rate 17 18 17 Blood Pressure 166/79 H 142/71 H Pulse Oximetry 98 99 98 02/16/18 10:00 02/16/18 11:00 02/16/18 11:15 Temperature Pulse Rate 68 66 66 Respiratory Rate 17 17 17 Blood Pressure 111/56 L 102/59 L 103/55 L Pulse Oximetry 98 98 98 02/16/18 11:30 02/16/18 11:45 02/16/18 12:00 Temperature 98.7 F Pulse Rate 67 67 66 Respiratory Rate 17 17 17 Blood Pressure 104/57 L 104/56 L 102/55 L Pulse Oximetry 98 98 98 02/16/18 12:56 02/16/18 13:00 02/16/18 14:00 Temperature Pulse Rate 70 66 Respiratory Rate 17 18 17 Blood Pressure 104/55 L 101/54 L Pulse Oximetry 99 99 99 02/16/18 14:37 02/16/18 15:00 02/16/18 16:00 Temperature 98.3 F Pulse Rate 66 68 69 Respiratory Rate 17 17 17 Blood Pressure 103/54 L Pulse Oximetry 99 99 02/16/18 17:00 02/16/18 17:43 02/16/18 18:00 Temperature 98.7 F Pulse Rate 71 71 73 Respiratory Rate 18 18 18 Blood Pressure 107/55 L 112/56 L 112/56 L Pulse Oximetry 99 99 99 02/16/18 19:00 02/16/18 20:00 02/16/18 20:37 Temperature 98.8 F Pulse Rate 72 77 72 Respiratory Rate 18 17 16 Blood Pressure 111/56 L 115/55 L Pulse Oximetry 100 99 99 02/16/18 21:00 02/16/18 22:00 02/16/18 23:00 Temperature Pulse Rate 77 74 74 Respiratory Rate 17 17 17 Blood Pressure 118/61 110/55 L 121/61 Pulse Oximetry 99 99 99 02/16/18 23:26 02/17/18 00:00 02/17/18 01:00 Temperature 99.2 F Pulse Rate 76 72 Respiratory Rate 17 16 16 Blood Pressure 125/63 134/65 Pulse Oximetry 99 98 98 02/17/18 02:00 02/17/18 03:00 02/17/18 03:20 Temperature Pulse Rate 71 77 74 Respiratory Rate 16 16 16 Blood Pressure 132/63 146/68 H Pulse Oximetry 98 98 02/17/18 03:42 02/17/18 04:00 02/17/18 05:00 Temperature 99.1 F Pulse Rate 93 H 71 Respiratory Rate 16 18 16 Blood Pressure 134/74 120/60 Pulse Oximetry 98 98 98 02/17/18 06:00 Temperature Pulse Rate 68 Respiratory Rate 16 Blood Pressure 131/63 Pulse Oximetry 98 Intake & Output 02/16/18 02/17/18 02/17/18 18:59 06:59 18:59 Intake Total 640 / 640 1989 100 / 100 Output Total 800 / 800 1000 / 1000 Balance -160 / -160 990 / 990 100 / 100 Weight 85.7 kg Intake: IV 300 / 300 1450 / 1450 100 / 100 Diprivan 1000 mg/100 ml Inj 1, 300 / 300 200 / 200 100 / 100 000 mg In 100 ml @ 5 MCG/KG/MIN 2.529 mls/hr IV.CONT TITRATE PRN Rx#:[id number] NS Inj 1,000 ML @ 75 mls/hr IV. 1000 / 1000 CONT .[id number] [facility] Rx#:[id number] fentaNYL 10 mcg/mL Premix Drip 250 / 250 2,500 mcg In 250 ml @ 50 MCG/HR 5 mls/hr IV.SIG TITRATE PRN Rx #:[id number] Tube Feeding 100 / 100 340 / 340 Tube Irrigant 140 / 140 Water Bolus Amount 100 / 100 200 / 200 Output: Urine Amount (Catheter) 800 / 800 1000 / 1000 Indwelling Urethral Catheter 800 / 800 1000 / 1000 Gastric Drainage 0 / 0 Orogastric Tube 0 / 0 Result Diagrams: 02/15/18 16:56 02/16/18 06:52 Imaging: Chest X-Ray 02/15/18 00:00 CONCLUSION: 1. ET tube tip in good position. 2. Subsegmental consolidative infiltrate left lower lung. Objective Remarks: - Constitutional moderate distress - Routine HEENT Exam Head: normocephalic, atraumatic Eye: PERRL ENT: Severe persistent angioedema with severely swollen and protruding tongue. Oral cavity exam is limited - Routine Neck Exam supple. Absent JVD, carotid bruit - Routine Respiratory Exam Patient mechanically ventilated. No: stridor, wheezes, crackles - Routine Cardiovascular Exam RRR, S1, S2. Absent murmur, gallop, rubs. Hypertensive - Routine Abdominal Exam Soft, normoactive bowel sounds. No tenderness or organomegaly - Routine Extremities Exam No cyanosis, clubbing - Routine Skin Exam Intact. - Routine Neurological Exam Heavily sedated but wakes up easily moves all extremities Assessment and Plan - Assessment and Plan Plan: Neuro: -Keep heavily sedated with propofol and fentanyl to RASS -3 -No sedation vacation and until angioedema improves for patient safety Resp: Severe angioedema Allergic reaction Acute respiratory Failure -Continue with vent support keep sats >92% -On PRVC RR 16, TV 500, It: 1.0, PEEP:5, FIO2: 40% -No weaning until angioedema resolve . Check ABG -Vent bundle, DuoNeb -Decadron 6 mg IV q6h -H1 H2 antagonists CVS Uncontrolled hypertension -Continue metoprolol 50mg TID and Norvasc 10mg daily -Monitor HR and BP keep MAP>65mmhg -Labetalol, Hydralazine PRN Dyslipidemia -Rosuvastatin GI: -On Jevity 1.5@30ml/hr advance to goal rate. -IV Protonix : -Monitor renal function, electrolytes replacement per protocol. -On NS@75ml/hr ID: -Monitor for signs of infections ( Fever, WBC) -Panculture if spikes a fever ENDO: -Electrolyte replacement per protocol -SSI for glycemic control DVT GI prophylaxis -Teds SCDs -Subcu Lovenox -Pepcid 35 minutes of critical care
[2018-02-17 08:24] LABS: ABG Base Excess -4.6 mmol/L (-2-2); ABG PCO2 35 mmHg (38-42); ABG PO2 103 mmHG (61-120)
[2018-02-17 08:34] LABS: Baso # (Auto) 0.1 th/mm3 (0.0-0.2); Baso % (Auto) 0.3 % (0.0-2.0); Eos % (Auto) 0.1 % (0.0-4.0); Hematocrit 36.3 % (35.0-46.0); Hemoglobin 11.8 gm/dL (11.6-15.3); Lymph # (Auto) 0.6 th/mm3 (1.0-4.8); Lymph % (Auto) 3.5 % (9.0-44.0); Mean Corpuscular HGB Conc 32.4 % (32.0-36.0); Mean Corpuscular Hemoglobin 32.2 pg (27.0-34.0); Mean Corpuscular Volume 99.4 fL (80.0-100.0); Mean Platelet Volume 8.1 fL (7.0-11.0); Mono # (Auto) 1.1 th/mm3 (0.0-0.9); Mono % (Auto) 6.4 % (0.0-8.0); Neut # (Auto) 14.7 th/mm3 (1.8-7.7); Neut % (Auto) 89.7 % (16.0-70.0); Platelet Count 218 th/mm3 (150-450); Red Blood Count 3.65 mil/mm3 (4.00-5.30); Red Cell Distribution Width 13.1 % (11.6-17.2); White Blood Count 16.4 th/mm3 (4.0-11.0)
[2018-02-17 08:49] LABS: Alanine Aminotransferase 28 U/L (10-53); Albumin 2.8 g/dL (3.4-5.0); Anion Gap 11 meq/L (5-15); Aspartate Aminotransferase 36 U/L (15-37); Blood Urea Nitrogen 17 mg/dL (7-18); Calcium 7.5 mg/dL (8.5-10.1); Carbon Dioxide 19.6 meq/L (21.0-32.0); Chloride 113 meq/L (98-107); Glomerular Filtration Rate 55 mL/min (>89); Glucose,Random 161 mg/dL (74-106); Magnesium 2.2 mg/dL (1.5-2.5); Phosphorus 2.2 mg/dL (2.5-4.9); Potassium 4.3 meq/L (3.5-5.1); Sodium 144 meq/L (136-145)
[2018-02-17 08:51] LABS: Alkaline Phosphatase 49 U/L (45-117); Total Protein 6.4 g/dL (6.4-8.2)
[2018-02-17] MEDS: Chlorhexidine 0.12% Oral Kit 15 ML UDC OROPHARYNG SCH ×2 (09:19→19:32)
[2018-02-17] MEDS: Enoxaparin Inj 40 MG/0.4 ML Syringe SQ SCH (09:20)
[2018-02-17] MEDS: Famotidine PF Inj 20 MG/2 ML Vial IV.PUSH SCH ×2 (09:20→20:49)
[2018-02-17] MEDS: Metoprolol Tartrate 50 MG Tablet PO SCH ×3 (09:20→17:52)
[2018-02-17] MEDS: amLODIPine 10 MG Tablet PO SCH (09:20)
[2018-02-17] MEDS: Beneprotein Powder Packet G-TUBE SCH ×3 (09:52→17:51)
[2018-02-17] MEDS ORDERED: Magnesium Sulfate Inj 4 GM in Sodium Chlor 0.9% Inj 92 ML IV.SIG PRN (09:54)
[2018-02-17] MEDS ORDERED: Potassium Phosphate 500 MG Soluble Tablet PO PRN ×2 (09:54)
[2018-02-17] MEDS ORDERED: Potassium Chlor 40 mEq Premix 40 MEQ/100 ML PIGGYBACK IV.SIG PRN ×2 (09:54)
[2018-02-17] MEDS ORDERED: Potassium Chlor 20 mEq Premix 20 MEQ/100 ML PIGGYBACK IV.SIG PRN ×2 (09:54)
[2018-02-17] MEDS ORDERED: Magnesium Oxide 400 MG Tablet PO PRN (09:54)
[2018-02-17] MEDS ORDERED: Magnesium Sulfate Inj 2 GM in Sodium Chlor 0.9% Inj 96 ML IV.SIG PRN (09:54)
[2018-02-17] MEDS ORDERED: Sodium Phosphate Inj 30 MMOL in Sodium Chlor 0.9% Inj 250 ML IV.SIG PRN (09:54)
[2018-02-17] MEDS ORDERED: Potassium Chloride 25 MEQ Effervescent Tablet PO PRN (09:54)
[2018-02-17] MEDS ORDERED: Potassium Phosphate Inj 30 MMOL in Sodium Chlor 0.9% Inj 250 ML IV.SIG PRN (09:54)
[2018-02-17] MEDS: Sod Chloride 0.9% Inj 1,000 ML IV.CONT SCH ×2 (10:22→23:08)
[2018-02-17] MEDS: Insulin NovoLIN Regular Correctional Sugar Inj SQ SCH ×3 (12:32→23:21)
[2018-02-18] MEDS: Propofol 1000 mg/100 ml Inj 1,000 MG/100 ML BOTTLE IV.CONT PRN ×6 (02:54→23:58)
[2018-02-18] MEDS: Chlorhexidine Gluconate 2% 1 Pack (2 Cloths) TOPICAL SCH (04:24)
[2018-02-18] MEDS: Oral Hygiene Kit OROPHARYNG SCH ×3 (04:24→15:56)
[2018-02-18] MEDS: fentaNYL 10 mcg/mL Premix Drip 2,500 MCG/250 ML BAG IV.SIG PRN ×2 (05:32→14:53)
[2018-02-18] MEDS: Insulin NovoLIN Regular Correctional Sugar Inj SQ SCH ×3 (05:37→17:46)
--- NOTE | 2018-02-18 07:25 | P.PNCC ---
Subjective Subjective Remarks/Hospital Course: 63-year-old female that presents for evaluation of allergic reaction. Patient reports that she has been having swelling tongue for the past 2-3 hours. Per patient and family member they went to have [employer] today for lunch and after this she developed the swelling. Patient herself did not want to come but they took Benadryl with minimal relief. essentially "force the patient " To come here. Patient denies any history of this in the past. She does state that she had shellfish today but she had shellfish in the past. She denies any other medical issues. She does take lisinopril for many years. No chest pain or shortness of breath. Her tongue is severely swollen and most of the history is obtained from the as patient cannot really talk for the most part. In the emergency department her airway appears to be significantly compromised and she was taken to operating room for fibroscopy nasal intubation by air press operator. SUBJ 02/16: Remains intubated heavily sedated with propofol. Severe tongue swelling with protrusion. Hypotensive overnight I have ordered Cardene infusion and as needed IV labetalol. at the bedside updated 02/17 No events overnight. Sedated with Diprivan,fentanyl; and intubated. Afebrile. 02/18: No events overnight. Sedated and intubated. T:99.8 Objective Vital Signs / I&O: Vital Signs 02/17/18 07:30 02/17/18 08:00 02/17/18 08:30 Temperature Pulse Rate 70 69 68 Respiratory Rate 16 16 16 Blood Pressure 134/64 143/66 H 140/65 Pulse Oximetry 98 99 99 02/17/18 08:38 02/17/18 09:00 02/17/18 09:18 Temperature 99.6 F Pulse Rate 70 68 68 Respiratory Rate 16 16 16 Blood Pressure 133/64 133/64 Pulse Oximetry 99 99 98 02/17/18 09:30 02/17/18 10:00 02/17/18 10:30 Temperature Pulse Rate 69 66 67 Respiratory Rate 16 16 16 Blood Pressure 131/63 146/70 H 136/64 Pulse Oximetry 98 98 97 02/17/18 10:54 02/17/18 11:00 02/17/18 11:30 Temperature Pulse Rate 67 66 Respiratory Rate 16 16 16 Blood Pressure 133/61 125/61 Pulse Oximetry 97 97 97 02/17/18 12:00 02/17/18 12:30 02/17/18 13:00 Temperature 99.5 F Pulse Rate 69 69 67 Respiratory Rate 16 16 16 Blood Pressure 124/59 L 115/57 L 131/63 Pulse Oximetry 99 99 99 02/17/18 13:30 02/17/18 14:00 02/17/18 14:30 Temperature Pulse Rate 66 68 68 Respiratory Rate 16 16 16 Blood Pressure 129/61 122/58 L 122/58 L Pulse Oximetry 99 98 98 02/17/18 15:00 02/17/18 15:30 02/17/18 15:38 Temperature Pulse Rate 69 70 71 Respiratory Rate 16 16 16 Blood Pressure 106/55 L 110/55 L Pulse Oximetry 98 97 97 02/17/18 16:00 02/17/18 16:30 02/17/18 17:00 Temperature 99.5 F Pulse Rate 70 70 72 Respiratory Rate 16 16 16 Blood Pressure 106/53 L 111/56 L 119/58 L Pulse Oximetry 97 97 98 02/17/18 17:30 02/17/18 18:00 02/17/18 18:30 Temperature Pulse Rate 69 71 69 Respiratory Rate 16 24 16 Blood Pressure 118/58 L 122/59 L 125/60 Pulse Oximetry 99 99 99 02/17/18 19:00 02/17/18 19:30 02/17/18 20:00 Temperature 99.8 F H 99.8 F H Pulse Rate 69 70 68 Respiratory Rate 16 16 16 Blood Pressure 119/58 L 134/63 116/58 L Pulse Oximetry 98 98 96 02/17/18 20:30 02/17/18 21:00 02/17/18 21:30 Temperature Pulse Rate 68 67 66 Respiratory Rate 16 16 16 Blood Pressure 122/60 127/62 121/61 Pulse Oximetry 96 96 97 02/17/18 22:00 02/17/18 22:30 02/17/18 23:00 Temperature Pulse Rate 65 63 60 Respiratory Rate 16 16 16 Blood Pressure 128/63 133/65 130/64 Pulse Oximetry 97 97 97 02/17/18 23:30 02/18/18 00:00 02/18/18 00:05 Temperature 99.1 F Pulse Rate 68 64 Respiratory Rate 16 16 16 Blood Pressure 150/75 H 131/67 Pulse Oximetry 98 97 97 02/18/18 00:30 02/18/18 01:00 02/18/18 01:30 Temperature Pulse Rate 62 60 58 L Respiratory Rate 16 16 16 Blood Pressure 134/68 138/66 132/66 Pulse Oximetry 97 97 97 02/18/18 02:00 02/18/18 02:30 02/18/18 03:00 Temperature Pulse Rate 57 L 58 L 59 L Respiratory Rate 16 16 16 Blood Pressure 139/68 136/67 130/65 Pulse Oximetry 97 97 97 02/18/18 03:30 02/18/18 04:00 02/18/18 04:05 Temperature 98.3 F Pulse Rate 54 L 53 L Respiratory Rate 16 16 16 Blood Pressure 131/65 132/64 Pulse Oximetry 97 97 97 02/18/18 04:06 02/18/18 06:00 Temperature Pulse Rate 55 L 61 Respiratory Rate 16 Blood Pressure Pulse Oximetry Intake & Output 02/17/18 02/18/18 02/18/18 18:59 06:59 18:59 Intake Total 2235 / 2235 2581 / 2581 Output Total 1550 / 1550 1175 / 1175 Balance 685 / 685 1406 / 1406 Weight 87.3 kg Intake: IV 1650 / 1650 2060 / 2060 Diprivan 1000 mg/100 ml Inj 1, 400 / 400 300 / 300 000 mg In 100 ml @ 5 MCG/KG/MIN 2.529 mls/hr IV.CONT TITRATE PRN Rx#:[id number] NS Inj 1,000 ML @ 75 mls/hr IV. 1000 / 1000 1000 / 1000 CONT .[id number] [facility] Rx#:[id number] Sodium Phosphate Inj 30 MMOL In 260 / 260 NS Inj 250 ML @ 42 mls/hr IV. SIG UNSCH PRN Rx#:[id number] fentaNYL 10 mcg/mL Premix Drip 250 / 250 500 / 500 2,500 mcg In 250 ml @ 50 MCG/HR 5 mls/hr IV.SIG TITRATE PRN Rx #:[id number] Tube Feeding 365 / 365 471 / 471 Tube Irrigant 120 / 120 50 / 50 Water Bolus Amount 100 / 100 Output: Urine Amount (Catheter) 1550 / 1550 1175 / 1175 Indwelling Urethral Catheter 1550 / 1550 1175 / 1175 Result Diagrams: 02/18/18 06:07 02/18/18 06:07 Other Results: Laboratory Results - last 12 hr 02/17/18 02/18/18 23:13 05:26 POC Glucose 161 H 205 H Imaging: Chest X-Ray 02/15/18 00:00 CONCLUSION: 1. ET tube tip in good position. 2. Subsegmental consolidative infiltrate left lower lung. Objective Remarks: - Constitutional moderate distress - Routine HEENT Exam Head: normocephalic, atraumatic Eye: PERRL ENT: Severe persistent angioedema with severely swollen and protruding tongue. Oral cavity exam is limited - Routine Neck Exam supple. Absent JVD, carotid bruit - Routine Respiratory Exam Patient mechanically ventilated. No: stridor, wheezes, crackles - Routine Cardiovascular Exam RRR, S1, S2. Absent murmur, gallop, rubs. Hypertensive - Routine Abdominal Exam Soft, normoactive bowel sounds. No tenderness or organomegaly - Routine Extremities Exam No cyanosis, clubbing - Routine Skin Exam Intact. - Routine Neurological Exam Heavily sedated but wakes up easily moves all extremities Assessment and Plan - Assessment and Plan Plan: Neuro: -Sedated with propofol and fentanyl to RASS -3 -No sedation vacation and until angioedema improves for patient safety Resp: Severe angioedema Allergic reaction Acute respiratory Failure -Continue with vent support keep sats >92% -On PRVC RR 16, TV 500, It: 1.0, PEEP:5, FIO2: 40% -No weaning until angioedema resolve . SBT daily as kj -Vent bundle, DuoNeb, check CXR -Decadron 6 mg IV q6h -H1 H2 antagonists CVS Uncontrolled hypertension -Continue metoprolol 50mg TID and Norvasc 10mg daily -Monitor HR and BP keep MAP>65mmhg -Labetalol, Hydralazine PRN Dyslipidemia -Rosuvastatin GI: -On Jevity 1.5@45ml/hr -IV Protonix : -Monitor renal function, electrolytes replacement per protocol. -d/c IVF and diurese with Lasix 40mg x1 ID: -Monitor for signs of infections ( Fever, WBC) -Had T:99.8 overnight. Check sputum cx, UA with cx if indicated and BC x 2 sets. -Start Zosyn empirically ENDO: -Electrolyte replacement per protocol -SSI for glycemic control DVT GI prophylaxis -Teds SCDs -Subcu Lovenox -Pepcid 35 minutes of critical care
[2018-02-18 08:11] LABS: Baso % (Auto) 0.1 % (0.0-2.0); Hematocrit 35.9 % (35.0-46.0); Hemoglobin 11.7 gm/dL (11.6-15.3); Lymph # (Auto) 0.7 th/mm3 (1.0-4.8); Lymph % (Auto) 5.7 % (9.0-44.0); Mean Corpuscular HGB Conc 32.5 % (32.0-36.0); Mean Corpuscular Hemoglobin 33.1 pg (27.0-34.0); Mean Corpuscular Volume 101.9 fL (80.0-100.0); Mean Platelet Volume 8.4 fL (7.0-11.0); Mono # (Auto) 1.1 th/mm3 (0.0-0.9); Mono % (Auto) 9.5 % (0.0-8.0); Neut % (Auto) 84.7 % (16.0-70.0); Platelet Count 202 th/mm3 (150-450); Red Blood Count 3.52 mil/mm3 (4.00-5.30); Red Cell Distribution Width 12.9 % (11.6-17.2); White Blood Count 11.8 th/mm3 (4.0-11.0)
[2018-02-18 08:20] LABS: Albumin 2.8 g/dL (3.4-5.0); Anion Gap 11 meq/L (5-15); Aspartate Aminotransferase 37 U/L (15-37); Blood Urea Nitrogen 23 mg/dL (7-18); Calcium 7.7 mg/dL (8.5-10.1); Carbon Dioxide 20.1 meq/L (21.0-32.0); Chloride 115 meq/L (98-107); Glomerular Filtration Rate 67 mL/min (>89); Glucose,Random 176 mg/dL (74-106); Magnesium 2.5 mg/dL (1.5-2.5); Potassium 4.2 meq/L (3.5-5.1); Sodium 146 meq/L (136-145)
[2018-02-18 08:21] LABS: Alanine Aminotransferase 29 U/L (10-53); Phosphorus 2.5 mg/dL (2.5-4.9)
[2018-02-18 08:23] LABS: Alkaline Phosphatase 44 U/L (45-117); Total Protein 6.3 g/dL (6.4-8.2)
[2018-02-18] MEDS: Piperacil/Tazo 4.5 GM Premix 4.5 GM/100 ML BAG IV.SIG SCH ×3 (08:27→21:10)
[2018-02-18] MEDS: Famotidine PF Inj 20 MG/2 ML Vial IV.PUSH SCH ×2 (08:28→21:11)
[2018-02-18] MEDS: Beneprotein Powder Packet G-TUBE SCH ×3 (08:29→17:45)
[2018-02-18] MEDS: Enoxaparin Inj 40 MG/0.4 ML Syringe SQ SCH (08:29)
[2018-02-18] MEDS: Chlorhexidine 0.12% Oral Kit 15 ML UDC OROPHARYNG SCH ×2 (08:31→21:10)
--- NOTE | 2018-02-18 08:45 | XR ---
EXAM DATE: 02/18/2018 7:28 AM EDT AGE/SEX: 63 years / Female INDICATIONS: Evaluate for effusions and vdrf. CLINICAL DATA: This is the patient's subsequent encounter. Patient reports that signs and symptoms h ave been present for 4 - 6 days and indicates a pain score of Nonresponsive. MEDICAL/SURGICAL HISTORY: Non-responsive. Non-responsive. COMPARISON: [facility] – [place], CHEST 1V SINGLE AP, 02/15/2018. . FINDINGS: A single AP view of the chest demonstrates bibasilar densities. Endotracheal tube and nasogastric tub e unchanged.. The cardiomediastinal contours are unremarkable. Osseous structures are intact. CONCLUSION: Worsening bibasilar densities likely atelectasis. Electronically signed by: Russell Nguyễn MD 02/18/2018 8:44 AM EDT
[2018-02-18 09:52] LABS: Bilirubin,Urine Negative (Negative); Clarity,Urine Hazy (Clear); Color,Urine Yellow (Yellw/Straw); Glucose,Urine (UA) Negative (Negative); Leukocyte Esterase,Urine Trace (Negative); Mucus,Urine Few /lpf (Occasional); Nitrite,Urine Negative (Negative); Specific Gravity,Urine 1.021 (1.002-1.035); Squamous Epithelial Cell,Urine 5 /hpf (0-5)
[2018-02-18] MEDS: amLODIPine 10 MG Tablet PO SCH (10:42)
[2018-02-18] MEDS: Metoprolol Tartrate 50 MG Tablet PO SCH ×3 (10:42→17:45)
[2018-02-19] MEDS: Oral Hygiene Kit OROPHARYNG SCH ×4 (00:02→17:55)
[2018-02-19] MEDS: Insulin NovoLIN Regular Correctional Sugar Inj SQ SCH ×4 (00:33→17:57)
[2018-02-19] MEDS: fentaNYL 10 mcg/mL Premix Drip 2,500 MCG/250 ML BAG IV.SIG PRN ×2 (00:55→19:24)
[2018-02-19] MEDS: Piperacil/Tazo 4.5 GM Premix 4.5 GM/100 ML BAG IV.SIG SCH ×4 (01:45→20:36)
[2018-02-19] MEDS: Propofol 1000 mg/100 ml Inj 1,000 MG/100 ML BOTTLE IV.CONT PRN ×6 (03:52→23:43)
[2018-02-19] MEDS: Chlorhexidine Gluconate 2% 1 Pack (2 Cloths) TOPICAL SCH (03:52)
[2018-02-19 06:37] LABS: Baso % (Auto) 0.1 % (0.0-2.0); Hematocrit 34.3 % (35.0-46.0); Hemoglobin 11.5 gm/dL (11.6-15.3); Lymph # (Auto) 0.8 th/mm3 (1.0-4.8); Mean Corpuscular HGB Conc 33.4 % (32.0-36.0); Mean Corpuscular Volume 98.9 fL (80.0-100.0); Mean Platelet Volume 8.3 fL (7.0-11.0); Mono # (Auto) 1.4 th/mm3 (0.0-0.9); Mono % (Auto) 11.3 % (0.0-8.0); Neut # (Auto) 9.8 th/mm3 (1.8-7.7); Neut % (Auto) 81.6 % (16.0-70.0); Platelet Count 222 th/mm3 (150-450); Red Blood Count 3.47 mil/mm3 (4.00-5.30); Red Cell Distribution Width 12.9 % (11.6-17.2)
[2018-02-19 07:01] LABS: Albumin 2.6 g/dL (3.4-5.0); Calcium 7.3 mg/dL (8.5-10.1); Carbon Dioxide 22.3 meq/L (21.0-32.0); Magnesium 2.7 mg/dL (1.5-2.5); Phosphorus 2.4 mg/dL (2.5-4.9); Potassium 4.5 meq/L (3.5-5.1); Total Protein 6.4 g/dL (6.4-8.2)
--- NOTE | 2018-02-19 07:44 | P.PNCC ---
Subjective Subjective Remarks/Hospital Course: 63-year-old female that presents for evaluation of allergic reaction. Patient reports that she has been having swelling tongue for the past 2-3 hours. Per patient and family member they went to have [employer] today for lunch and after this she developed the swelling. Patient herself did not want to come but they took Benadryl with minimal relief. essentially "force the patient " To come here. Patient denies any history of this in the past. She does state that she had shellfish today but she had shellfish in the past. She denies any other medical issues. She does take lisinopril for many years. No chest pain or shortness of breath. Her tongue is severely swollen and most of the history is obtained from the as patient cannot really talk for the most part. In the emergency department her airway appears to be significantly compromised and she was taken to operating room for fibroscopy nasal intubation by warper fixer. SUBJ 02/16: Remains intubated heavily sedated with propofol. Severe tongue swelling with protrusion. Hypotensive overnight I have ordered Cardene infusion and as needed IV labetalol. at the bedside updated 02/17 No events overnight. Sedated with Diprivan,fentanyl; and intubated. Afebrile. 02/18: No events overnight. Sedated and intubated. T:99.8 02/19 Patient remains sedatyed with Fentnayl and Diprivan. Tolerated CPAP for 6 hrs yesterday. T: 100.3. Her tongue still swollen with protrusion. Objective Vital Signs / I&O: Vital Signs 02/18/18 07:39 02/18/18 08:00 02/18/18 08:30 Temperature 97.8 F Pulse Rate 59 L 59 L Respiratory Rate 16 16 16 Blood Pressure 137/65 138/61 Pulse Oximetry 100 99 99 02/18/18 09:00 02/18/18 09:30 02/18/18 10:00 Temperature Pulse Rate 74 64 64 Respiratory Rate 18 9 L 16 Blood Pressure 144/80 H 120/72 115/56 L Pulse Oximetry 98 93 L 96 02/18/18 10:31 02/18/18 11:00 02/18/18 11:30 Temperature Pulse Rate 75 62 57 L Respiratory Rate 25 H 16 16 Blood Pressure 128/65 109/55 L 115/58 L Pulse Oximetry 96 97 98 02/18/18 12:00 02/18/18 12:30 02/18/18 13:00 Temperature 98.1 F Pulse Rate 54 L 53 L 53 L Respiratory Rate 16 16 16 Blood Pressure 114/58 L 126/58 L 127/63 Pulse Oximetry 98 99 99 02/18/18 13:30 02/18/18 14:00 02/18/18 15:02 Temperature Pulse Rate 59 L 58 L 62 Respiratory Rate 16 16 16 Blood Pressure 130/60 129/59 L Pulse Oximetry 98 98 02/18/18 16:00 02/18/18 16:30 02/18/18 17:00 Temperature 98.7 F Pulse Rate 63 65 64 Respiratory Rate 16 17 16 Blood Pressure 126/64 128/60 127/60 Pulse Oximetry 100 100 100 02/18/18 17:30 02/18/18 18:00 02/18/18 19:44 Temperature Pulse Rate 68 67 65 Respiratory Rate 18 16 16 Blood Pressure 132/65 134/66 Pulse Oximetry 99 100 97 02/18/18 20:00 02/18/18 22:00 02/19/18 00:00 Temperature 98.4 F 99.2 F Pulse Rate 66 63 66 Respiratory Rate 17 17 Blood Pressure 131/58 L 134/60 Pulse Oximetry 98 97 02/19/18 00:10 02/19/18 01:26 02/19/18 02:00 Temperature Pulse Rate 61 Respiratory Rate 16 16 Blood Pressure Pulse Oximetry 98 02/19/18 03:41 02/19/18 04:00 02/19/18 04:13 Temperature 100.3 F H Pulse Rate 60 63 Respiratory Rate 16 16 16 Blood Pressure 143/66 H Pulse Oximetry 97 97 02/19/18 06:00 Temperature Pulse Rate 66 Respiratory Rate Blood Pressure Pulse Oximetry Intake & Output 02/18/18 02/19/18 02/19/18 18:59 06:59 18:59 Intake Total 1497 / 1497 2098 / 2098 Output Total 2075 / 2075 900 / 900 Balance -578 / -578 1198 / 1198 Weight 87.9 kg Intake: IV 750 / 750 1500 / 1500 Diprivan 1000 mg/100 ml Inj 1, 300 / 300 300 / 300 000 mg In 100 ml @ 5 MCG/KG/MIN 2.529 mls/hr IV.CONT TITRATE PRN Rx#:[id number] Zosyn 4.5 GM Premix 4.5 gm In 200 / 200 200 / 200 100 ml @ 200 mls/hr IV.SIG Q6H [facility] Rx#:[id number] fentaNYL 10 mcg/mL Premix Drip 250 / 250 250 / 250 2,500 mcg In 250 ml @ 50 MCG/HR 5 mls/hr IV.SIG TITRATE PRN Rx #:[id number] Tube Feeding 547 / 547 398 / 398 Water Bolus Amount 200 / 200 200 / 200 Output: Urine Amount (Catheter) 2074 900 / 900 Indwelling Urethral Catheter 2074 900 / 900 Other: # Bowel Movements 0 0 Result Diagrams: 02/19/18 05:14 02/19/18 05:14 Other Results: Laboratory Results - last 12 hr 02/18/18 02/19/18 02/19/18 23:40 05:14 05:14 WBC 12.0 H RBC 3.47 L Hgb 11.5 L Hct 34.3 L MCV 98.9 MCH 33.0 MCHC 33.4 RDW 12.9 Plt Count 222 MPV 8.3 Prelim Diff (Auto) Slide review pending Neut % (Auto) 81.6 H Lymph % (Auto) 7.0 L Hubbard % (Auto) 11.3 H Eos % (Auto) 0.0 Baso % (Auto) 0.1 Neut # (Auto) 9.8 H Lymph # (Auto) 0.8 L Hubbard # (Auto) 1.4 H Eos # (Auto) 0.0 Baso # (Auto) 0.0 Differential Comment . Sodium 149 H Potassium 4.5 Chloride 115 H Carbon Dioxide 22.3 Anion Gap 12 BUN 25 H Creatinine 1.26 H Estimated GFR 52 L POC Glucose 164 H Random Glucose 166 H Calcium 7.3 L* Prot Corrected Calcium 7.7 L Phosphorus 2.4 L Magnesium 2.7 H Total Bilirubin 0.4 AST 54 H ALT 63 H Alkaline Phosphatase 42 L Total Protein 6.4 Albumin 2.6 L Imaging: Chest X-Ray 02/18/18 07:28 CONCLUSION: Worsening bibasilar densities likely atelectasis. Objective Remarks: - Constitutional moderate distress - Routine HEENT Exam Head: normocephalic, atraumatic Eye: PERRL ENT: Severe persistent angioedema with severely swollen and protruding tongue. Oral cavity exam is limited - Routine Neck Exam supple. Absent JVD, carotid bruit - Routine Respiratory Exam Patient mechanically ventilated. No: stridor, wheezes, crackles - Routine Cardiovascular Exam RRR, S1, S2. Absent murmur, gallop, rubs. Hypertensive - Routine Abdominal Exam Soft, normoactive bowel sounds. No tenderness or organomegaly - Routine Extremities Exam No cyanosis, clubbing - Routine Skin Exam Intact. - Routine Neurological Exam Heavily sedated but wakes up easily moves all extremities Assessment and Plan - Assessment and Plan Plan: Neuro: -Sedated with propofol and fentanyl to RASS -3 -No sedation vacation and until angioedema improves for patient safety Resp: Severe angioedema Allergic reaction Acute respiratory Failure -Continue with vent support keep sats >92% -On PRVC RR 16, TV 500, It: 1.0, PEEP:5, FIO2: 40% - SBT daily as kj -Vent bundle, DuoNeb, -Decadron 6 mg IV q6h -H1 H2 antagonists CVS Uncontrolled hypertension -Chnae metoprolol 25mg BID, d/c Norvasc 10mg daily -Monitor HR and BP keep MAP>65mmhg -Labetalol, Hydralazine PRN Dyslipidemia -Rosuvastatin GI: -On Jevity 1.5@45ml/hr -IV Protonix : -Monitor renal function, electrolytes replacement per protocol. -Will need Phos replacement today -Place on Free water 250ml Q8 monitor sodium level. ID: -Monitor for signs of infections ( Fever, WBC) -Follow up on Blood and sputum cx -Continue Zosyn empirically ENDO: -Electrolyte replacement per protocol -SSI for glycemic control DVT GI prophylaxis -Teds SCDs -Subcu Lovenox -Francoise Spoke to patient's and family yesterday and updated them on her condition 35 minutes of critical care
[2018-02-19 09:19] LABS: Lymphocytes 15 % (9-44); Monocytes 9 % (0-8); Myelocytes 1 % (0-0); Platelet Estimate Normal (Normal); Platelet Morphology Normal (Normal); RBC Morphology Normal (Normal); Tallied Nucleated RBC 1 (0-0)
[2018-02-19] MEDS: Famotidine PF Inj 20 MG/2 ML Vial IV.PUSH SCH ×2 (10:08→20:36)
[2018-02-19] MEDS: Enoxaparin Inj 40 MG/0.4 ML Syringe SQ SCH (10:09)
[2018-02-19] MEDS: Chlorhexidine 0.12% Oral Kit 15 ML UDC OROPHARYNG SCH ×2 (10:10→20:35)
[2018-02-19] MEDS: Metoprolol Tartrate 25 MG Tablet PO SCH ×2 (10:11→20:36)
[2018-02-19] MEDS: Beneprotein Powder Packet G-TUBE SCH ×3 (10:14→19:02)
[2018-02-20] MEDS: Insulin NovoLIN Regular Correctional Sugar Inj SQ SCH ×4 (00:06→17:47)
[2018-02-20] MEDS: Oral Hygiene Kit OROPHARYNG SCH ×4 (00:06→17:01)
[2018-02-20] MEDS: Piperacil/Tazo 4.5 GM Premix 4.5 GM/100 ML BAG IV.SIG SCH ×4 (01:58→20:22)
--- NOTE | 2018-02-20 02:43 | P.DIET ---
Nutritional Evaluation Type of nutrition evaluation: initial Nutrition consult regarding: Tube Feeding [place] [facility] [place] - [place] Allergic reaction - Objective [place] body weight: 59 kg % IBW: 144 Body Weight Used for Calculations: Upper end of IBW Energy Needs - Lower Range (kCal/kg): 28 Energy Needs - Upper Range (kCal/kg): 32 Lower Limit kCal/kg (kCals): 1,652 Upper Limit kCal/kg (kCals): 1,888 Lower Limit Protein Factor (Grams per Kg): 1 Upper Limit Protein Factor (Grams per Kg): 1.5 Lower Protein Needs (Protein): 59 Upper Protein Needs (Protein): 89 Dietitian Reviewed in Medical Record: Intake & Output, Labs, Medical history, Tube feeding Feeding - Current Tube Feeding Diprivan Rate: 25 Lipid kCals From Diprivan: 660 Assessment Assessment: Pt. is at nutritional risk due to dx. and need for TFing. Pt. presents for evaluation of allergic reaction. MD noted patient remains sedated with Fentnayl and Diprivan. Tolerated CPAP for 6 hrs yesterday. T: 100.3. Her tongue still swollen with protrusion. Recommend Jevity 1.5 @ goal rate of 40mls/hr with current propofol rate. Will provide 2100kcals, 61g of protein and 730mls of free water. When propofol is d/musa recommend Jevity 1.5 @ goal rate of 50mls/ hr. Monitor TFing tolerance, labs and wt. Recommendations: 1. Recommend Jevity 1.5 @ goal rate of 40mls/hr with current propofol rate. 2. When propofol is d/musa recommend Jevity 1.5 @ goal rate of 50mls/hr. 3. Monitor TFing tolerance, labs and wt. Dietitian to Monitor: Lab values, Tube feeding tolerance, Weight change, Residuals, Wound/skin status, Medical course
[2018-02-20] MEDS: Propofol 1000 mg/100 ml Inj 1,000 MG/100 ML BOTTLE IV.CONT PRN ×6 (03:04→22:45)
[2018-02-20] MEDS: Chlorhexidine Gluconate 2% 1 Pack (2 Cloths) TOPICAL SCH (03:04)
[2018-02-20] MEDS: fentaNYL 10 mcg/mL Premix Drip 2,500 MCG/250 ML BAG IV.SIG PRN ×3 (05:02→22:19)
[2018-02-20 08:30] LABS: Baso % (Auto) 0.2 % (0.0-2.0); Hemoglobin 11.4 gm/dL (11.6-15.3); Lymph # (Auto) 1.2 th/mm3 (1.0-4.8); Lymph % (Auto) 10.1 % (9.0-44.0); Mean Corpuscular HGB Conc 33.5 % (32.0-36.0); Mean Corpuscular Hemoglobin 33.1 pg (27.0-34.0); Mean Platelet Volume 8.2 fL (7.0-11.0); Mono # (Auto) 1.6 th/mm3 (0.0-0.9); Mono % (Auto) 13.9 % (0.0-8.0); Neut # (Auto) 8.7 th/mm3 (1.8-7.7); Neut % (Auto) 75.8 % (16.0-70.0); Platelet Count 225 th/mm3 (150-450); Red Blood Count 3.44 mil/mm3 (4.00-5.30); Red Cell Distribution Width 12.9 % (11.6-17.2); White Blood Count 11.4 th/mm3 (4.0-11.0)
[2018-02-20] MEDS ORDERED: Vancomycin Consult Pharmacy OTHER PRN (08:32)
--- NOTE | 2018-02-20 08:33 | P.PNCC ---
Subjective Subjective Remarks/Hospital Course: 63-year-old female that presents for evaluation of allergic reaction. Patient reports that she has been having swelling tongue for the past 2-3 hours. Per patient and family member they went to have [employer] today for lunch and after this she developed the swelling. Patient herself did not want to come but they took Benadryl with minimal relief. essentially "force the patient " To come here. Patient denies any history of this in the past. She does state that she had shellfish today but she had shellfish in the past. She denies any other medical issues. She does take lisinopril for many years. No chest pain or shortness of breath. Her tongue is severely swollen and most of the history is obtained from the as patient cannot really talk for the most part. In the emergency department her airway appears to be significantly compromised and she was taken to operating room for fibroscopy nasal intubation by public health director. SUBJ 02/16: Remains intubated heavily sedated with propofol. Severe tongue swelling with protrusion. Hypotensive overnight I have ordered Cardene infusion and as needed IV labetalol. at the bedside updated 02/17 No events overnight. Sedated with Diprivan,fentanyl; and intubated. Afebrile. 02/18: No events overnight. Sedated and intubated. T:99.8 02/19 Patient remains sedated with Fentanyl and Diprivan. Tolerated CPAP for 6 hrs yesterday. T: 100.3. Her tongue still swollen with protrusion. 02/20 No events overnight. Sedated and intubated. T:100.2 Objective Vital Signs / I&O: Vital Signs 02/19/18 08:56 02/19/18 08:59 02/19/18 10:00 Temperature Pulse Rate 63 63 Respiratory Rate 16 16 Blood Pressure Pulse Oximetry 96 02/19/18 11:41 02/19/18 12:00 02/19/18 14:00 Temperature 100.3 F H Pulse Rate 67 66 Respiratory Rate 16 17 Blood Pressure 152/67 H Pulse Oximetry 96 96 02/19/18 15:05 02/19/18 15:07 02/19/18 16:00 Temperature 100.1 F H Pulse Rate 63 69 Respiratory Rate 17 16 19 Blood Pressure 135/61 Pulse Oximetry 96 95 02/19/18 18:00 02/19/18 19:30 02/19/18 20:00 Temperature 99 F Pulse Rate 61 64 Respiratory Rate 16 16 Blood Pressure 162/73 H Pulse Oximetry 97 95 02/19/18 20:47 02/19/18 22:00 02/19/18 23:57 Temperature Pulse Rate 63 71 Respiratory Rate 16 17 Blood Pressure Pulse Oximetry 96 02/20/18 00:00 02/20/18 02:00 02/20/18 03:55 Temperature 100.2 F H Pulse Rate 68 63 62 Respiratory Rate 16 16 Blood Pressure 146/58 H Pulse Oximetry 96 97 02/20/18 04:00 02/20/18 04:22 02/20/18 05:34 Temperature 100.2 F H Pulse Rate 65 65 Respiratory Rate 16 16 Blood Pressure 141/67 H Pulse Oximetry 96 02/20/18 06:00 02/20/18 07:29 Temperature Pulse Rate 60 61 Respiratory Rate 18 Blood Pressure Pulse Oximetry 95 Intake & Output 02/19/18 02/20/18 02/20/18 18:59 06:59 18:59 Intake Total 1552 / 1552 1843 / 1843 Output Total 1000 / 1000 Balance 1552 / 1552 843 / 843 Weight 89.5 kg Intake: IV 650 / 650 850 / 850 Diprivan 1000 mg/100 ml Inj 1, 200 / 200 400 / 400 000 mg In 100 ml @ 5 MCG/KG/MIN 2.529 mls/hr IV.CONT TITRATE PRN Rx#:[id number] Zosyn 4.5 GM Premix 4.5 gm In 200 / 200 200 / 200 100 ml @ 200 mls/hr IV.SIG Q6H [facility] Rx#:[id number] fentaNYL 10 mcg/mL Premix Drip 250 / 250 250 / 250 2,500 mcg In 250 ml @ 50 MCG/HR 5 mls/hr IV.SIG TITRATE PRN Rx #:[id number] Tube Feeding 402 / 402 493 / 493 Water Bolus Amount 500 / 500 500 / 500 Output: Urine Amount (Catheter) 1000 / 1000 Indwelling Urethral Catheter 1000 / 1000 Other: # Bowel Movements 0 Result Diagrams: 02/20/18 06:36 02/20/18 06:36 Other Results: Laboratory Results - last 12 hr 02/19/18 02/20/18 23:45 06:00 POC Glucose 181 H 188 H Imaging: Chest X-Ray 02/18/18 07:28 CONCLUSION: Worsening bibasilar densities likely atelectasis. Objective Remarks: - Constitutional moderate distress - Routine HEENT Exam Head: normocephalic, atraumatic Eye: PERRL ENT: Severe persistent angioedema with severely swollen and protruding tongue. Oral cavity exam is limited - Routine Neck Exam supple. Absent JVD, carotid bruit - Routine Respiratory Exam Patient mechanically ventilated. No: stridor, wheezes, crackles - Routine Cardiovascular Exam RRR, S1, S2. Absent murmur, gallop, rubs. Hypertensive - Routine Abdominal Exam Soft, normoactive bowel sounds. No tenderness or organomegaly - Routine Extremities Exam No cyanosis, clubbing - Routine Skin Exam Intact. - Routine Neurological Exam Heavily sedated but wakes up easily moves all extremities Assessment and Plan - Assessment and Plan Plan: Neuro: -Sedated with propofol and fentanyl to RASS -3 -Daily sedation vacation Resp: Severe angioedema Allergic reaction Acute respiratory Failure -Continue with vent support keep sats >92% -On PRVC RR 16, TV 500, It: 1.0, PEEP:5, FIO2: 40% - SBT daily as kj -Vent bundle, DuoNeb, -Decadron 6 mg IV q6h -H1 H2 antagonists CVS Uncontrolled hypertension -On metoprolol 25mg BID, -Monitor HR and BP keep MAP>65mmhg -Labetalol, Hydralazine PRN Dyslipidemia -Rosuvastatin GI: -On Jevity 1.5@45ml/hr -IV Protonix : -Monitor renal function, electrolytes replacement per protocol. - on Free water 250ml Q8 monitor sodium level. -Place on Lasix 40mg daily ID: -Monitor for signs of infections ( Fever, WBC) -Follow up on Blood : NGTD -Sputum cx 02/18: Staph Aureus, follow up on sensitivity. -Continue Zosyn, add Vanco ENDO: -Electrolyte replacement per protocol -SSI for glycemic control DVT GI prophylaxis -Teds SCDs -Subcu Lovenox -Pepcid 35 minutes of critical care
[2018-02-20 08:36] LABS: Albumin 2.4 g/dL (3.4-5.0); Calcium 7.3 mg/dL (8.5-10.1); Carbon Dioxide 21.7 meq/L (21.0-32.0); Magnesium 2.6 mg/dL (1.5-2.5); Phosphorus 2.2 mg/dL (2.5-4.9); Potassium 4.8 meq/L (3.5-5.1); Total Protein 6.4 g/dL (6.4-8.2)
[2018-02-20] MEDS: Chlorhexidine 0.12% Oral Kit 15 ML UDC OROPHARYNG SCH ×2 (08:58→20:23)
[2018-02-20] MEDS: Metoprolol Tartrate 25 MG Tablet PO SCH ×2 (08:59→20:22)
[2018-02-20] MEDS: Beneprotein Powder Packet G-TUBE SCH ×3 (09:00→17:01)
[2018-02-20] MEDS ORDERED: Vancomycin Inj 1 GM/200 ML PIGGYBACK IV.SIG SCH (09:00)
[2018-02-20] MEDS: Enoxaparin Inj 40 MG/0.4 ML Syringe SQ SCH (09:00)
[2018-02-20] MEDS: Famotidine PF Inj 20 MG/2 ML Vial IV.PUSH SCH ×2 (09:00→20:22)
--- NOTE | 2018-02-20 09:13 | XR ---
EXAM DATE: 02/20/2018 8:33 AM EDT AGE/SEX: 63 years / Female INDICATIONS: Shortness of breath. CLINICAL DATA: This is the patient's initial encounter. Patient reports that signs and symptoms have been present for 1 day and indicates a pain score of Nonresponsive. MEDICAL/SURGICAL HISTORY: None. None. COMPARISON: [facility] [place] 1[place] SINGLE AP, 02/18/2018. . FINDINGS: A single AP view of the chest demonstrates an endotracheal tube with the tip 3 cm from the daily. Na sogastric tube tip courses towards the body the stomach. Exact location is obscured by the penetratio n of the film. Bibasilar pulmonary consolidations without significant change from the prior study giv en the differences in technique. No effusions. Heart is mildly enlarged. CONCLUSION: Unchanged bibasal pulmonary infiltrates. Electronically signed by: Celestino Cuello MD 02/20/2018 9:12 AM EDT
[2018-02-20] MEDS ORDERED: Vancomycin Inj 1,750 MG in Sodium Chlor 0.9% Inj 500 ML IV.SIG ONE (10:00)
[2018-02-20] MEDS ORDERED: Calcium Gluconate Inj 1 GM in Sodium Chlor 0.9% Inj 100 ML IV.SIG ONE (13:00)
[2018-02-20] MEDS: Midazolam 50 MG/50 ML Inj 50 MG/50 ML BAG IV.CONT PRN (21:43)
--- NOTE | 2018-02-20 23:51 | XR ---
EXAM DATE: 02/20/2018 11:13 PM EDT AGE/SEX: 63 years / Female INDICATIONS: E-T and O-G tube placements. CLINICAL DATA: This is the patient's subsequent encounter. Patient reports that signs and symptoms h ave been present for 1 week and indicates a pain score of Nonresponsive. MEDICAL/SURGICAL HISTORY: Non-responsive. Non-responsive. COMPARISON: [facility], CHEST 1V SINGLE AP, 02/20/2018. . FINDINGS: Endotracheal tube in good position. OG enters stomach. Bilateral perihilar and basilar airspace disea se. No significant effusion. No pneumothorax. CONCLUSION: Endotracheal tube and orogastric tube in satisfactory position. Stable airspace disease compared with earlier exam. Electronically signed by: Polo Garcia MD 02/20/2018 11:50 PM EDT
[2018-02-21] MEDS: Oral Hygiene Kit OROPHARYNG SCH ×4 (00:58→17:54)
[2018-02-21] MEDS: Insulin NovoLIN Regular Correctional Sugar Inj SQ SCH ×4 (01:14→17:55)
[2018-02-21] MEDS: Piperacil/Tazo 4.5 GM Premix 4.5 GM/100 ML BAG IV.SIG SCH ×4 (02:13→21:14)
[2018-02-21] MEDS: Propofol 1000 mg/100 ml Inj 1,000 MG/100 ML BOTTLE IV.CONT PRN ×4 (02:14→21:21)
[2018-02-21 05:03] LABS: Baso # (Auto) 0.1 th/mm3 (0.0-0.2); Baso % (Auto) 0.4 % (0.0-2.0); Eos % (Auto) 0.1 % (0.0-4.0); Hematocrit 34.4 % (35.0-46.0); Hemoglobin 11.8 gm/dL (11.6-15.3); Lymph # (Auto) 2.1 th/mm3 (1.0-4.8); Lymph % (Auto) 16.3 % (9.0-44.0); Mean Corpuscular HGB Conc 34.3 % (32.0-36.0); Mean Corpuscular Hemoglobin 33.1 pg (27.0-34.0); Mean Corpuscular Volume 96.7 fL (80.0-100.0); Mean Platelet Volume 7.6 fL (7.0-11.0); Mono % (Auto) 15.7 % (0.0-8.0); Neut # (Auto) 8.6 th/mm3 (1.8-7.7); Neut % (Auto) 67.5 % (16.0-70.0); Platelet Count 250 th/mm3 (150-450); Red Blood Count 3.56 mil/mm3 (4.00-5.30); Red Cell Distribution Width 12.6 % (11.6-17.2); White Blood Count 12.8 th/mm3 (4.0-11.0)
[2018-02-21 05:28] LABS: Albumin 2.5 g/dL (3.4-5.0); Anion Gap 7 meq/L (5-15); Aspartate Aminotransferase 50 U/L (15-37); Blood Urea Nitrogen 28 mg/dL (7-18); Calcium 7.9 mg/dL (8.5-10.1); Carbon Dioxide 26.8 meq/L (21.0-32.0); Chloride 109 meq/L (98-107); Glomerular Filtration Rate 58 mL/min (>89); Glucose,Random 100 mg/dL (74-106); Magnesium 2.4 mg/dL (1.5-2.5); Potassium 4.6 meq/L (3.5-5.1); Sodium 143 meq/L (136-145)
[2018-02-21 05:32] LABS: Alanine Aminotransferase 74 U/L (10-53); Alkaline Phosphatase 39 U/L (45-117); Phosphorus 2.9 mg/dL (2.5-4.9); Total Protein 6.6 g/dL (6.4-8.2)
--- NOTE | 2018-02-21 07:26 | P.PNCC ---
Subjective Subjective Remarks/Hospital Course: 63-year-old female that presents for evaluation of allergic reaction. Patient reports that she has been having swelling tongue for the past 2-3 hours. Per patient and family member they went to have [employer] today for lunch and after this she developed the swelling. Patient herself did not want to come but they took Benadryl with minimal relief. essentially "force the patient " To come here. Patient denies any history of this in the past. She does state that she had shellfish today but she had shellfish in the past. She denies any other medical issues. She does take lisinopril for many years. No chest pain or shortness of breath. Her tongue is severely swollen and most of the history is obtained from the as patient cannot really talk for the most part. In the emergency department her airway appears to be significantly compromised and she was taken to operating room for fibroscopy nasal intubation by radiology director. SUBJ 02/16: Remains intubated heavily sedated with propofol. Severe tongue swelling with protrusion. Hypotensive overnight I have ordered Cardene infusion and as needed IV labetalol. at the bedside updated 02/17 No events overnight. Sedated with Diprivan,fentanyl; and intubated. Afebrile. 02/18: No events overnight. Sedated and intubated. T:99.8 02/19 Patient remains sedated with Fentanyl and Diprivan. Tolerated CPAP for 6 hrs yesterday. T: 100.3. Her tongue still swollen with protrusion. 02/20 No events overnight. Sedated and intubated. T:100.2 02/21 Patient remains sedated and intubated, Versed drip 2mg/hr added overnight for agitation. Objective Vital Signs / I&O: Vital Signs 02/20/18 07:29 02/20/18 07:30 02/20/18 08:00 Temperature Pulse Rate 61 61 78 Respiratory Rate 18 Blood Pressure 182/90 H 163/79 H Pulse Oximetry 95 95 95 02/20/18 08:30 02/20/18 09:00 02/20/18 09:30 Temperature Pulse Rate 69 67 63 Respiratory Rate Blood Pressure 163/78 H 158/74 H 160/75 H Pulse Oximetry 94 L 94 L 95 02/20/18 10:00 02/20/18 10:30 02/20/18 11:00 Temperature Pulse Rate 63 63 62 Respiratory Rate Blood Pressure 152/72 H 150/72 H 151/72 H Pulse Oximetry 95 95 95 02/20/18 11:30 02/20/18 11:56 02/20/18 12:00 Temperature Pulse Rate 63 64 Respiratory Rate 16 Blood Pressure 156/73 H 153/70 H Pulse Oximetry 95 95 95 02/20/18 12:30 02/20/18 13:00 02/20/18 13:30 Temperature Pulse Rate 63 64 63 Respiratory Rate Blood Pressure 153/70 H 135/65 137/59 L Pulse Oximetry 96 95 93 L 02/20/18 14:00 02/20/18 14:30 02/20/18 15:00 Temperature Pulse Rate 63 64 62 Respiratory Rate Blood Pressure 141/63 H 136/63 146/68 H Pulse Oximetry 93 L 94 L 93 L 02/20/18 15:30 02/20/18 15:49 02/20/18 16:00 Temperature Pulse Rate 62 61 62 Respiratory Rate 16 Blood Pressure 141/63 H 155/71 H Pulse Oximetry 94 L 94 L 94 L 02/20/18 16:30 02/20/18 17:00 02/20/18 17:30 Temperature 100.3 F H Pulse Rate 70 70 64 Respiratory Rate Blood Pressure 145/65 H 137/64 133/65 Pulse Oximetry 99 98 98 02/20/18 18:00 02/20/18 19:41 02/20/18 19:42 Temperature Pulse Rate 61 63 Respiratory Rate 16 16 Blood Pressure 146/68 H Pulse Oximetry 98 99 02/20/18 20:00 02/20/18 22:00 02/20/18 23:56 Temperature 97.8 F Pulse Rate 65 62 Respiratory Rate 16 16 Blood Pressure 150/70 H Pulse Oximetry 98 98 02/21/18 00:00 02/21/18 00:55 02/21/18 02:00 Temperature 98 F Pulse Rate 60 55 L Respiratory Rate 16 16 Blood Pressure 150/73 H Pulse Oximetry 98 02/21/18 03:50 02/21/18 04:00 02/21/18 06:00 Temperature 98.1 F Pulse Rate 57 L 56 L 60 Respiratory Rate 16 16 Blood Pressure 165/84 H Pulse Oximetry 99 99 Intake & Output 02/20/18 02/21/18 02/21/18 18:59 06:59 18:59 Intake Total 1197 / 1197 1146 / 1146 Output Total 3100 / 3100 1700 / 1700 Balance -1903 / -1903 -554 / -554 Weight 86.4 kg Intake: IV 650 / 650 650 / 650 Diprivan 1000 mg/100 ml Inj 1, 200 / 200 300 / 300 000 mg In 100 ml @ 5 MCG/KG/MIN 2.529 mls/hr IV.CONT TITRATE PRN Rx#:[id number] Zosyn 4.5 GM Premix 4.5 gm In 200 / 200 100 / 100 100 ml @ 200 mls/hr IV.SIG Q6H [facility] Rx#:[id number] fentaNYL 10 mcg/mL Premix Drip 250 / 250 250 / 250 2,500 mcg In 250 ml @ 50 MCG/HR 5 mls/hr IV.SIG TITRATE PRN Rx #:[id number] Tube Feeding 547 / 547 186 / 186 Tube Irrigant 60 / 60 Water Bolus Amount 250 / 250 Output: Urine Amount (Catheter) 3100 / 3100 1700 / 1700 Indwelling Urethral Catheter 3100 / 3100 1700 / 1700 Gastric Drainage 0 / 0 Orogastric Tube 0 / 0 Other: Date of Last Bowel Movement 02/21/18 # Bowel Movements 2 Result Diagrams: 02/21/18 04:34 02/21/18 04:34 Other Results: Laboratory Results - last 12 hr 02/21/18 02/21/18 02/21/18 00:55 04:34 04:34 WBC 12.8 H RBC 3.56 L Hgb 11.8 Hct 34.4 L MCV 96.7 MCH 33.1 MCHC 34.3 RDW 12.6 Plt Count 250 MPV 7.6 Neut % (Auto) 67.5 Lymph % (Auto) 16.3 [place] % (Auto) 15.7 H Eos % (Auto) 0.1 Baso % (Auto) 0.4 Neut # (Auto) 8.6 H Lymph # (Auto) 2.1 [place] # (Auto) 2.0 H Eos # (Auto) 0.0 Baso # (Auto) 0.1 WBC Differential . Differential Comment Auto diff final Sodium 143 Potassium 4.6 Chloride 109 H Carbon Dioxide 26.8 Anion Gap 7 BUN 28 H Creatinine 1.14 H Estimated GFR 58 L POC Glucose 132 H Random Glucose 100 Calcium 7.9 L Phosphorus 2.9 Magnesium 2.4 Total Bilirubin 0.5 AST 50 H ALT 74 H Alkaline Phosphatase 39 L Total Protein 6.6 Albumin 2.5 L 02/21/18 05:09 WBC RBC Hgb Hct MCV MCH MCHC RDW Plt Count MPV Neut % (Auto) Lymph % (Auto) [place] % (Auto) Eos % (Auto) Baso % (Auto) Neut # (Auto) Lymph # (Auto) [place] # (Auto) Eos # (Auto) Baso # (Auto) WBC Differential Differential Comment Sodium Potassium Chloride Carbon Dioxide Anion Gap BUN Creatinine Estimated GFR POC Glucose 104 Random Glucose Calcium Phosphorus Magnesium Total Bilirubin AST ALT Alkaline Phosphatase Total Protein Albumin Imaging: Chest X-Ray 02/20/18 23:13 CONCLUSION: Endotracheal tube and orogastric tube in satisfactory position. Stable airspace disease compared with earlier exam. Objective Remarks: - Constitutional moderate distress - Routine HEENT Exam Head: normocephalic, atraumatic Eye: PERRL ENT: Severe persistent angioedema with severely swollen and protruding tongue. Oral cavity exam is limited - Routine Neck Exam supple. Absent JVD, carotid bruit - Routine Respiratory Exam Patient mechanically ventilated. No: stridor, wheezes, crackles - Routine Cardiovascular Exam RRR, S1, S2. Absent murmur, gallop, rubs. Hypertensive - Routine Abdominal Exam Soft, normoactive bowel sounds. No tenderness or organomegaly - Routine Extremities Exam No cyanosis, clubbing - Routine Skin Exam Intact. - Routine Neurological Exam Heavily sedated but wakes up easily moves all extremities Assessment and Plan - Assessment and Plan Plan: Neuro: -Sedated with propofol,Versed and fentanyl . -Daily sedation vacation Resp: Severe angioedema Allergic reaction Acute respiratory Failure -Continue with vent support keep sats >92% -On PRVC RR 16, TV 500, It: 1.0, PEEP:5, FIO2: 35% - SBT daily as kj. check ABG -Vent bundle, DuoNeb, -Decadron 6 mg IV q6h -H1 H2 antagonists CVS hypertension -On metoprolol 25mg BID, -Monitor HR and BP keep MAP>65mmhg -Labetalol, Hydralazine PRN Dyslipidemia -Rosuvastatin GI: -Elevated LFT's -On Jevity 1.5 advance to goal rate 45ml/hr -IV Protonix -Check US liver. : -Monitor renal function, electrolytes replacement per protocol. - on Free water 250ml Q8 monitor sodium level. -on Lasix 40mg daily ID: -Monitor for signs of infections ( Fever, WBC) -Follow up on Blood : NGTD -Sputum cx 02/18: Staph Aureus, Haemophilus influenza -Continue Zosyn, Vanco ENDO: -Electrolyte replacement per protocol -SSI for glycemic control DVT GI prophylaxis -Teds SCDs -Subcu Lovenox -Pepcid 35 minutes of critical care
[2018-02-21] MEDS: Metoprolol Tartrate 25 MG Tablet PO SCH ×2 (08:09→22:00)
[2018-02-21] MEDS: Chlorhexidine 0.12% Oral Kit 15 ML UDC OROPHARYNG SCH ×2 (08:09→21:14)
[2018-02-21] MEDS: Famotidine PF Inj 20 MG/2 ML Vial IV.PUSH SCH ×2 (08:09→21:21)
[2018-02-21] MEDS: Enoxaparin Inj 40 MG/0.4 ML Syringe SQ SCH (08:09)
[2018-02-21] MEDS: Beneprotein Powder Packet G-TUBE SCH ×3 (08:10→17:54)
[2018-02-21] MEDS: fentaNYL 10 mcg/mL Premix Drip 2,500 MCG/250 ML BAG IV.SIG PRN ×2 (08:56→19:09)
[2018-02-21 09:59] LABS: ABG Base Excess 2.6 mmol/L (-2-2); ABG PCO2 36 mmHg (38-42); ABG PO2 70 mmHG (61-120)
[2018-02-21] MEDS ORDERED: Vancomycin Inj 1,750 MG in Sodium Chlor 0.9% Inj 500 ML IV.SIG SCH (11:00)
[2018-02-21] MEDS: Midazolam 50 MG/50 ML Inj 50 MG/50 ML BAG IV.CONT PRN (13:45)
--- NOTE | 2018-02-21 14:04 | US ---
EXAM DATE: 02/21/2018 12:00 AM EDT AGE/SEX: 63 years / Female INDICATIONS: Elevated liver function test. CLINICAL DATA: This is the patient's initial encounter. Patient reports that signs and symptoms have been present for 1 day and indicates a pain score of 0/10. MEDICAL/SURGICAL HISTORY: . Hypercholesterolemia. Hypertension. Former smoker. . Thyroidecto my. COMPARISON: No prior exams available for comparison. MEASUREMENTS: Liver:__ 15.6 cm. Common Bile Duct:__ 6mm. Right Kidney:__ 12.0 x 6.3 x 5.1 cm. FINDINGS: Liver: Mild diffusely increased hepatic echogenicity without intrahepatic ductal dilatation or signif icant volume loss. Portal Vein: Hepatopedal flow seen in portal vein. Common Duct: No intraluminal mass or stone visualized. Gallbladder: Demonstrates no wall thickening or pericholecystic fluid. No stones visualized. Pancreas: The visualized portions are within normal limits Right Kidney: Normal echotexture and cortical thickness. No mass or hydronephrosis. Other: None. CONCLUSION: 1. Diffusely increased hepatic echogenicity without volume loss most consistent with hepatic steatos is versus medical liver disease. Electronically signed by: Nick García MD 02/21/2018 2:03 PM EDT
--- NOTE | 2018-02-21 15:08 | XR ---
EXAM DATE: 02/21/2018 2:22 PM EDT AGE/SEX: 63 years / Female INDICATIONS: Short of breath. CLINICAL DATA: This is the patient's subsequent encounter. Patient reports that signs and symptoms h ave been present for 1 week and indicates a pain score of 0/10. MEDICAL/SURGICAL HISTORY: Non-responsive. Non-responsive. COMPARISON: [facility] [place], CHEST 1V SINGLE AP, 02/20/2018. . FINDINGS: Stable ETT and NGT. Persistent airspace consolidation in the lower lung zones bilaterally. Slight imp roved aeration in the perihilar regions. Cardiomediastinal contours are stable. Remainder of exam is unchanged. CONCLUSION: 1. Stable ETT and NGT. 2. Slight improved perihilar opacities which may reflect improved fluid balance. 3. Persistent bilateral lower lung zone airspace consolidation. Electronically signed by: Nick García MD 02/21/2018 3:07 PM EDT
--- NOTE | 2018-02-21 17:03 | P.CONID ---
History of Present Illness Service: Infectious Disease Consult date: 02/21/18 Requesting Physician: Ru Fernandes Reason for Consult: Evaluation and Mment of Pneumonia in patient with angioedema Primary Care Provider: Philippe Redd MD History of Present Illness: Ms. Montgomery is a 63-year-old -[place] female who presented for evaluation of possible allergic reaction. Patient reported that she had been having swelling of the tongue for the past 2-3 hours prior to admission. The patient and family member there went to [employer] for lunch and thereafter she started developing swelling of the tongue. Patient tried Benadryl at home with minimal relief. Patient was essentially forced to come to the hospital. Patient denies any prior history of similar incidents in the past. Patient reportedly has had shellfish in the past without any problems until this admission. She has been taking lisinopril for many years. Patient's son who is in the room reports that patient has been having cough over the last several weeks and likely stopped it sure if this actually happened. Patient was evaluated in the emergency department and since her airway was significantly compromise she was taken to the operating room for a fiber optic nasal intubation by the hot die press operator. Thereafter patient remains in the ICU under the care of stamp collector. Currently she is nasally intubated. Upon discussion with the respiratory therapist it appears that patient has copious amounts of secretions. Patient also continues to have low-grade fevers despite broad-spectrum antibiotics in the form of Zosyn and vancomycin. Infectious diseases consulted for evaluation and management of persistent fevers and persistent pneumonia in a patient with angioedema. Review of Systems unobtainable due to endotracheal tube, unobtainable due to mental status PMFSH - History History Provided By: Patient - Medical History Medical History: Medical History (Last Reviewed 02/15/18 @ 17:07 by KATHRYN Bazan) Hypercholesteremia Hypertension - Surgical History Surgical History: Surgical History (Last Reviewed 02/15/18 @ 17:07 by KATHRYN Bazan) H/O thyroidectomy - Tobacco History Second Hand Smoke Exposure: No Smoking Status: Former smoker - Alcohol History How Often Do You Have a Drink Containing Alcohol: 4 or more times a week - Substance Use History Substance History: No History of Abuse - Travel History Recent Travel in the [place] Within the Last 8 Weeks: No Recent Travel Out of the Country Within the Last 8 Weeks: No - Immunization History Tetanus Immunization: <5 Years Medications and Allergies Active Medications: Active Medications Albuterol (Duoneb Neb (Prn)) 1 ampul NEB Q2HR NEB PRN PRN Reason: SHORTNESS OF BREATH Albuterol (Duoneb Neb (Lm)) 1 ampul NEB Q6HR NEB [facility] Last Admin: 02/21/18 16:11 Dose: 1 ampul Atorvastatin Calcium (Lipitor) 20 mg PO DAILY [facility] Last Admin: 02/21/18 08:09 Dose: 20 mg Chlorhexidine Gluconate (Peridex 0.12% Oral Kit) 15 ml OROPHARYNG BID@0800, 2000 [facility] Last Admin: 02/21/18 08:09 Dose: 15 ml Dexamethasone Sodium Phosphate (Decadron Inj) 6 mg IV.PUSH Q6HR [facility] Last Admin: 02/21/18 11:15 Dose: 6 mg Dextrose (D50w Vial) 50 ml IV.PUSH UNSCH PRN PRN Reason: PER HYPOGLYCEMIA PROTOCOL Diphenhydramine HCl (Benadryl) 50 mg NG/OG Q6H [facility] Last Admin: 02/21/18 11:15 Dose: 50 mg Enoxaparin Sodium (Lovenox Inj) 40 mg SQ DAILY [facility] Last Admin: 02/21/18 08:09 Dose: 40 mg Famotidine (Pepcid Pf Inj) 20 mg IV.PUSH Q12HR [facility] Last Admin: 02/21/18 08:09 Dose: 20 mg Fentanyl Citrate (Fentanyl Inj) 50 mcg IV.PUSH Q1H PRN PRN Reason: SEE LABEL COMMENTS Last Admin: 02/16/18 06:37 Dose: 50 mcg Furosemide (Lasix Inj) 40 mg IV.PUSH DAILY [facility] Last Admin: 02/21/18 08:09 Dose: 40 mg Glucagon (Glucagon Inj) 1 mg OTHER PRN PRN PRN Reason: for Hypoglycemia Protocol Hydralazine HCl (Apresoline Inj) 20 mg IV.PUSH Q4H PRN PRN Reason: BP >165/95 Propofol (Diprivan 1000 Mg/100 Ml Inj) 1,000 mg in 100 mls @ 2.529 mls/hr IV.CONT TITRATE PRN; Protocol PRN Reason: Per Protocol Last Admin: 02/21/18 14:22 Dose: 30 mcg/kg/min, 15.17 mls/hr Fentanyl (Fentanyl 10 Mcg/Ml Premix Drip) 2,500 mcg in 250 mls @ 5 mls/hr IV.SIG TITRATE PRN; Protocol PRN Reason: Per Protocol Last Admin: 02/21/18 08:56 Dose: 250 mcg/hr, 25 mls/hr Magnesium Sulfate 4 gm/ Sodium (Chloride) 100 mls @ 50 mls/hr IV.SIG UNSCH PRN PRN Reason: For Magnesium 0.9 - 1.1 mg/dL Magnesium Sulfate 2 gm/ Sodium (Chloride) 100 mls @ 50 mls/hr IV.SIG UNSCH PRN PRN Reason: For Magnesium 1.2 - 1.6 mg/dL Potassium Chloride (Kcl 40 Meq Premix Inj) 40 meq in 100 mls @ 25 mls/hr IV.SIG Q2H PRN PRN Reason: For Potassium 2.8 - 3.2 mEq/L Potassium Chloride (Kcl 20 Meq Premix Inj) 20 meq in 100 mls @ 50 mls/hr IV.SIG Q2H PRN PRN Reason: For Potassium 3.3 - 3.5 mEq/L Potassium Chloride (Kcl 40 Meq Premix Inj) 40 meq in 100 mls @ 25 mls/hr IV.SIG UNSCH PRN PRN Reason: For Potassium 3.3 - 3.5 mEq/L Potassium Chloride (Kcl 20 Meq Premix Inj) 20 meq in 100 mls @ 50 mls/hr IV.SIG Q2H PRN PRN Reason: For Potassium 2.8 - 3.2 mEq/L Sodium Phosphate 30 mmol/ (Sodium Chloride) 260 mls @ 42 mls/hr IV.SIG UNSCH PRN PRN Reason: For Phosphorus < 2.5 mg/dL Last Infusion: 02/17/18 19:00 Dose: Infused Potassium Phosphate 30 mmol/ (Sodium Chloride) 260 mls @ 42 mls/hr IV.SIG UNSCH PRN PRN Reason: SEE LABEL COMMENTS Piperacillin/Tazobactam/Dextrose (Zosyn 4.5 Gm Premix) 4.5 gm in 100 mls @ 200 mls/hr IV.SIG Q6H LM Last Infusion: 02/21/18 14:53 Dose: Infused Vancomycin HCl 1,750 mg/ (Sodium Chloride) 517.5 mls @ 250 mls/hr IV.SIG Q24H LM Last Infusion: 02/21/18 13:20 Dose: Infused Midazolam HCl (Versed Inj) 50 mg in 50 mls @ 2 mls/hr IV.CONT TITRATE PRN; Protocol PRN Reason: Per Protocol Last Admin: 02/21/18 13:45 Dose: 2 mg/hr, 2 mls/hr Insulin Human Regular (Novolin R Correctional Sugar Inj) 0 units SQ Q6HR [facility]; Protocol Last Admin: 02/21/18 11:19 Dose: Not Given Labetalol HCl (Trandate Inj) 10 mg IV.PUSH Q4H PRN PRN Reason: SBP>160, DBP>90 Last Admin: 02/16/18 03:18 Dose: 10 mg Magnesium Oxide (Mag-Ox) 800 mg PO UNSCH PRN PRN Reason: For Magnesium 1.2 - 1.6 mg/dL Metoprolol Tartrate (Lopressor) 25 mg PO BID [facility] Last Admin: 02/21/18 08:09 Dose: 25 mg Midazolam HCl (Versed Inj) 2 mg IV.PUSH Q15M PRN PRN Reason: sedation Last Admin: 02/20/18 21:43 Dose: 2 mg Miscellaneous Information ([facility] Ordered Lab Info) 0 each OTHER ONCE ONE Stop: 02/23/18 10:46 Miscellaneous Medication () 1 each OROPHARYNG 0000,0400,1200,1600 [facility] Last Admin: 02/21/18 11:15 Dose: 1 each Patch Removal (Remove Old Patch) 1 each T-DERMAL Q7D [facility] Pharmacy Profile Note (Vancomycin Consult Pharmacy) 1 each OTHER UNSCH PRN PRN Reason: Pharmacy to dose Potassium Bicarb/Potassium Chloride (K-Lyte Cl Eff) 50 meq PO UNSCH PRN PRN Reason: For Potassium 3.3 - 3.5 mEq/L Potassium Phosphate (K-Phos Original) 2,000 mg PO Q4H PRN PRN Reason: Phosphorus Less Than 2.5 mg/dL Potassium Phosphate (K-Phos Original) 2,000 mg PO UNSCH PRN PRN Reason: SEE LABEL COMMENTS Rocuronium Anthony (Zemuron Inj) 50 mg IV.PUSH BOLUS PRN PRN Reason: procedure Sodium Chloride (Ns Flush) 2 ml IV.FLUSH PRN PRN PRN Reason: FLUSH AFTER USING IV ACCESS Last Admin: 02/18/18 08:30 Dose: 2 ml Sodium Chloride (Ns Flush) 2 ml IV.FLUSH PRN PRN PRN Reason: FLUSH AFTER USING IV ACCESS Last Admin: 02/19/18 10:09 Dose: 2 ml Sterile Water (Free Water) 250 ml G-TUBE Q8HR [facility] Last Admin: 02/21/18 13:46 Dose: 250 ml Whey (Beneprotein Powder) 1 packet G-TUBE TID [facility] Last Admin: 02/21/18 13:46 Dose: 1 packet Allergies Allergy/AdvReac Type Severity Reaction Status Date / Time hydrocodone Allergy Severe Dizziness Unverified 02/15/18 16:45 shellfish derived Allergy Anaphylaxis Verified 02/15/18 16:45 Home Medications Medication Instructions Recorded Confirmed Type amlodipine 10 mg PO DAILY 02/15/18 02/15/18 History lisinopril 10 mg PO DAILY 02/15/18 02/15/18 History metoprolol tartrate 50 mg PO TID 02/15/18 02/15/18 History potassium chloride [Klor-Con 10] 10 meq PO DAILY 02/15/18 02/15/18 History rosuvastatin [Crestor] 10 mg PO DAILY 02/15/18 02/15/18 History Exam Vital signs: Vital Signs 02/20/18 17:30 02/20/18 18:00 02/20/18 19:41 Temperature Pulse Rate 64 61 63 Respiratory Rate 16 Blood Pressure 133/65 146/68 H Pulse Oximetry 98 98 02/20/18 19:42 02/20/18 20:00 02/20/18 22:00 Temperature 97.8 F Pulse Rate 65 62 Respiratory Rate 16 16 Blood Pressure 150/70 H Pulse Oximetry 99 98 02/20/18 23:56 02/21/18 00:00 02/21/18 00:55 Temperature 98 F Pulse Rate 60 Respiratory Rate 16 16 16 Blood Pressure 150/73 H Pulse Oximetry 98 98 02/21/18 02:00 02/21/18 03:50 02/21/18 04:00 Temperature 98.1 F Pulse Rate 55 L 57 L 56 L Respiratory Rate 16 16 Blood Pressure 165/84 H Pulse Oximetry 99 99 02/21/18 06:00 02/21/18 07:00 02/21/18 07:42 Temperature Pulse Rate 60 66 Respiratory Rate 21 21 Blood Pressure Pulse Oximetry 98 02/21/18 08:00 02/21/18 10:00 02/21/18 11:49 Temperature 99.9 F H Pulse Rate 66 62 Respiratory Rate 17 16 Blood Pressure 152/74 H Pulse Oximetry 99 100 02/21/18 12:00 02/21/18 14:00 02/21/18 16:00 Temperature 100.9 F H Pulse Rate 60 74 Respiratory Rate 15 17 Blood Pressure 115/68 Pulse Oximetry 100 100 02/21/18 16:11 Temperature Pulse Rate 57 L Respiratory Rate 16 Blood Pressure Pulse Oximetry Intake & Output 02/20/18 02/21/18 02/21/18 18:59 06:59 18:59 Intake Total 1197 / 1197 1146 / 1146 1317.5 / 1317.5 Output Total 3100 / 3100 1700 / 1700 Balance -1903 / -1903 -554 / -554 1317.5 / 1317.5 Weight 86.4 kg Intake: IV 650 / 650 650 / 650 1317.5 / 1317.5 Versed Inj 50 mg In 50 ml @ 2 50 / 50 MG/HR 2 mls/hr IV.CONT TITRATE PRN Rx#:[id number] Diprivan 1000 mg/100 ml Inj 1, 200 / 200 300 / 300 200 / 200 000 mg In 100 ml @ 5 MCG/KG/MIN 2.529 mls/hr IV.CONT TITRATE PRN Rx#:[id number] Zosyn 4.5 GM Premix 4.5 gm In 200 / 200 100 / 100 300 / 300 100 ml @ 200 mls/hr IV.SIG Q6H LM Rx#:[id number] Vancomycin Inj 1,750 MG In NS 517.5 / 517.5 Inj 500 ML @ 250 mls/hr IV.SIG Q24H [facility] Rx#:[id number] fentaNYL 10 mcg/mL Premix Drip 250 / 250 250 / 250 250 / 250 2,500 mcg In 250 ml @ 50 MCG/HR 5 mls/hr IV.SIG TITRATE PRN Rx #:[id number] Tube Feeding 547 / 547 186 / 186 Tube Irrigant 60 / 60 Water Bolus Amount 250 / 250 Output: Urine Amount (Catheter) 3100 / 3100 1700 / 1700 Indwelling Urethral Catheter 3100 / 3100 1700 / 1700 Gastric Drainage 0 / 0 Orogastric Tube 0 / 0 Other: Date of Last Bowel Movement 02/21/18 02/21/18 # Bowel Movements 2 Narrative: GENERAL: Sedated, on the vent. Morbidly obese. SKIN: Cool and dry, no generalized rash HEAD: Atraumatic. Normocephalic. No temporal or scalp tenderness. EYES: Pupils equal round and reactive. Scleral icterus. No injection or drainage. No petechia ENT: Nasal intubated NECK: Trachea midline. Supple, nontender, no meningeal signs. CARDIOVASCULAR: HS audible. RESPIRATORY: Air entry equal bilaterally. Clear to auscultation bilaterally. GASTROINTESTINAL: Abdomen soft,NT MUSCULOSKELETAL: Extremities without clubbing, cyanosis. NEUROLOGICAL: Sedated Psych could not be assessed IV line sites ok. Results - Labs CBC & Chem 7: 02/22/18 04:36 02/23/18 05:56 Labs: Laboratory Results - last 24 hr 02/20/18 02/21/18 02/21/18 17:13 00:55 04:34 WBC 12.8 H RBC 3.56 L Hgb 11.8 Hct 34.4 L MCV 96.7 MCH 33.1 MCHC 34.3 RDW 12.6 Plt Count 250 MPV 7.6 Neut % (Auto) 67.5 Lymph % (Auto) 16.3 [place] % (Auto) 15.7 H Eos % (Auto) 0.1 Baso % (Auto) 0.4 Neut # (Auto) 8.6 H Lymph # (Auto) 2.1 [place] # (Auto) 2.0 H Eos # (Auto) 0.0 Baso # (Auto) 0.1 WBC Differential . Differential Comment Auto diff final Puncture Site Patient Temperature O2 Saturation ABG pH ABG pCO2 ABG pO2 ABG HCO3 ABG O2 Content ABG Base Excess ABG Methemoglobin Mervin Test Hemoglobin Carboxyhemoglobin O2 Delivery Device Vent Setting Inspired O2 Critical Value Sodium Potassium Chloride Carbon Dioxide Anion Gap BUN Creatinine Estimated GFR POC Glucose 183 H 132 H Random Glucose Calcium Phosphorus Magnesium Total Bilirubin AST ALT Alkaline Phosphatase Total Protein Albumin 02/21/18 02/21/18 02/21/18 04:34 05:09 09:40 WBC RBC Hgb Hct MCV MCH MCHC RDW Plt Count MPV Neut % (Auto) Lymph % (Auto) [place] % (Auto) Eos % (Auto) Baso % (Auto) Neut # (Auto) Lymph # (Auto) [place] # (Auto) Eos # (Auto) Baso # (Auto) WBC Differential Differential Comment Puncture Site Right radial Patient Temperature 98.6 O2 Saturation 92 ABG pH 7.47 H ABG pCO2 36 L ABG pO2 70 ABG HCO3 26 ABG O2 Content 16.4 ABG Base Excess 2.6 H ABG Methemoglobin 1.4 Mervin Test Present Hemoglobin 12.6 Carboxyhemoglobin 1.4 O2 Delivery Device Ventilator Vent Setting Cpap+5/ps+20/ Inspired O2 35 Critical Value No Sodium 143 Potassium 4.6 Chloride 109 H Carbon Dioxide 26.8 Anion Gap 7 BUN 28 H Creatinine 1.14 H Estimated GFR 58 L POC Glucose 104 Random Glucose 100 Calcium 7.9 L Phosphorus 2.9 Magnesium 2.4 Total Bilirubin 0.5 AST 50 H ALT 74 H Alkaline Phosphatase 39 L Total Protein 6.6 Albumin 2.5 L 02/21/18 11:19 WBC RBC Hgb Hct MCV MCH MCHC RDW Plt Count MPV Neut % (Auto) Lymph % (Auto) [place] % (Auto) Eos % (Auto) Baso % (Auto) Neut # (Auto) Lymph # (Auto) [place] # (Auto) Eos # (Auto) Baso # (Auto) WBC Differential Differential Comment Puncture Site Patient Temperature O2 Saturation ABG pH ABG pCO2 ABG pO2 ABG HCO3 ABG O2 Content ABG Base Excess ABG Methemoglobin Mervin Test Hemoglobin Carboxyhemoglobin O2 Delivery Device Vent Setting Inspired O2 Critical Value Sodium Potassium Chloride Carbon Dioxide Anion Gap BUN Creatinine Estimated GFR POC Glucose 128 H Random Glucose Calcium Phosphorus Magnesium Total Bilirubin AST ALT Alkaline Phosphatase Total Protein Albumin - Imaging Impressions Chest X-Ray 02/20/18 23:13 CONCLUSION: Endotracheal tube and orogastric tube in satisfactory position. Stable airspace disease compared with earlier exam. Liver Ultrasound 02/21/18 00:00 CONCLUSION: 1. Diffusely increased hepatic echogenicity without volume loss most consistent with hepatic steatosis versus medical liver disease. Chest X-Ray 02/21/18 14:22 CONCLUSION: 1. Stable ETT and NGT. 2. Slight improved perihilar opacities which may reflect improved fluid balance. 3. Persistent bilateral lower lung zone airspace consolidation. Assessment and Plan - Plan Sepsis persistent (fever, leucocytosis, pneumonia) Health care vs aspiration Pneumonia Persistent fever: ? Drug fever, ? new infection MSSA and H.Influenza pneumonia. Angioedema on admission: Shellfish versus TROY-I. Primary team managing. Nasal intubation, on ventilator. Recs: Continue Zosyn IV DC Vanco IV ? Drug fever. Recheck sputum cultures as increased in amount and change in consistency, plus persistent fevers ? New infection. Start Zyvox IV. Follow cultures Follow clinical course. jazzy RN jazzy Patients son in room. jazzy [facility] MD Fernandes.
[2018-02-22] MEDS: Insulin NovoLIN Regular Correctional Sugar Inj SQ SCH ×4 (01:08→17:46)
[2018-02-22] MEDS: Oral Hygiene Kit OROPHARYNG SCH ×4 (01:08→17:46)
[2018-02-22] MEDS: Piperacil/Tazo 4.5 GM Premix 4.5 GM/100 ML BAG IV.SIG SCH ×4 (01:52→20:15)
[2018-02-22] MEDS: fentaNYL 10 mcg/mL Premix Drip 2,500 MCG/250 ML BAG IV.SIG PRN ×2 (05:00→20:29)
[2018-02-22] MEDS: Propofol 1000 mg/100 ml Inj 1,000 MG/100 ML BOTTLE IV.CONT PRN ×3 (05:00→23:04)
[2018-02-22 06:04] LABS: Baso % (Auto) 0.1 % (0.0-2.0); Hematocrit 35.7 % (35.0-46.0); Hemoglobin 12.2 gm/dL (11.6-15.3); Lymph # (Auto) 1.4 th/mm3 (1.0-4.8); Lymph % (Auto) 9.2 % (9.0-44.0); Mean Corpuscular HGB Conc 34.3 % (32.0-36.0); Mean Corpuscular Hemoglobin 33.2 pg (27.0-34.0); Mean Corpuscular Volume 96.8 fL (80.0-100.0); Mono # (Auto) 1.8 th/mm3 (0.0-0.9); Mono % (Auto) 11.8 % (0.0-8.0); Neut % (Auto) 78.9 % (16.0-70.0); Platelet Count 265 th/mm3 (150-450); Red Blood Count 3.69 mil/mm3 (4.00-5.30); Red Cell Distribution Width 12.6 % (11.6-17.2); White Blood Count 15.2 th/mm3 (4.0-11.0)
[2018-02-22 06:19] LABS: Albumin 2.5 g/dL (3.4-5.0); Anion Gap 11 meq/L (5-15); Blood Urea Nitrogen 34 mg/dL (7-18); Calcium 8.2 mg/dL (8.5-10.1); Carbon Dioxide 23.3 meq/L (21.0-32.0); Chloride 105 meq/L (98-107); Glucose,Random 177 mg/dL (74-106); Magnesium 2.5 mg/dL (1.5-2.5); Potassium 4.7 meq/L (3.5-5.1); Sodium 139 meq/L (136-145)
[2018-02-22 06:20] LABS: Aspartate Aminotransferase 44 U/L (15-37); Glomerular Filtration Rate 60 mL/min (>89)
[2018-02-22 06:24] LABS: Alanine Aminotransferase 80 U/L (10-53); Alkaline Phosphatase 38 U/L (45-117); Phosphorus 3.6 mg/dL (2.5-4.9); Total Protein 6.7 g/dL (6.4-8.2)
--- NOTE | 2018-02-22 07:27 | P.PNCC ---
Subjective Subjective Remarks/Hospital Course: 63-year-old female that presents for evaluation of allergic reaction. Patient reports that she has been having swelling tongue for the past 2-3 hours. Per patient and family member they went to have [place] today for lunch and after this she developed the swelling. Patient herself did not want to come but they took Benadryl with minimal relief. essentially "force the patient " To come here. Patient denies any history of this in the past. She does state that she had shellfish today but she had shellfish in the past. She denies any other medical issues. She does take lisinopril for many years. No chest pain or shortness of breath. Her tongue is severely swollen and most of the history is obtained from the as patient cannot really talk for the most part. In the emergency department her airway appears to be significantly compromised and she was taken to operating room for fibroscopy nasal intubation by business management professor. SUBJ 02/16: Remains intubated heavily sedated with propofol. Severe tongue swelling with protrusion. Hypotensive overnight I have ordered Cardene infusion and as needed IV labetalol. at the bedside updated 02/17 No events overnight. Sedated with Diprivan,fentanyl; and intubated. Afebrile. 02/18: No events overnight. Sedated and intubated. T:99.8 02/19 Patient remains sedated with Fentanyl and Diprivan. Tolerated CPAP for 6 hrs yesterday. T: 100.3. Her tongue still swollen with protrusion. 02/20 No events overnight. Sedated and intubated. T:100.2 02/21 Patient remains sedated and intubated, Versed drip 2mg/hr added overnight for agitation. 02/22 No events overnight. Sedated and intubated. Afebrile. Objective Vital Signs / I&O: Vital Signs 02/21/18 07:42 02/21/18 08:00 02/21/18 10:00 Temperature 99.9 F H Pulse Rate 66 62 Respiratory Rate 21 17 16 Blood Pressure 152/74 H Pulse Oximetry 98 99 100 02/21/18 10:30 02/21/18 11:00 02/21/18 11:30 Temperature Pulse Rate 61 61 61 Respiratory Rate 15 15 15 Blood Pressure 127/69 119/67 117/66 Pulse Oximetry 100 100 100 02/21/18 11:49 02/21/18 12:00 02/21/18 12:30 Temperature 100.9 F H Pulse Rate 60 60 Respiratory Rate 16 15 20 Blood Pressure 115/68 131/71 Pulse Oximetry 100 100 100 02/21/18 13:00 02/21/18 13:30 02/21/18 14:00 Temperature Pulse Rate 59 L 60 74 Respiratory Rate 15 15 16 Blood Pressure 129/65 133/69 172/88 H Pulse Oximetry 100 100 100 02/21/18 14:31 02/21/18 15:00 02/21/18 15:30 Temperature Pulse Rate 63 61 59 L Respiratory Rate 16 16 16 Blood Pressure 121/60 105/60 116/62 Pulse Oximetry 100 100 100 02/21/18 16:00 02/21/18 16:11 02/21/18 16:32 Temperature 100.7 F H Pulse Rate 57 L 57 L 63 Respiratory Rate 16 16 13 Blood Pressure 119/66 114/75 Pulse Oximetry 100 100 02/21/18 17:00 02/21/18 17:30 02/21/18 18:00 Temperature Pulse Rate 60 56 L 56 L Respiratory Rate 13 17 16 Blood Pressure 123/70 123/70 127/69 Pulse Oximetry 100 100 100 02/21/18 18:30 02/21/18 19:00 02/21/18 19:30 Temperature Pulse Rate 58 L 54 L 54 L Respiratory Rate 17 17 16 Blood Pressure 139/70 141/74 H 146/72 H Pulse Oximetry 100 100 100 02/21/18 20:00 02/21/18 20:30 02/21/18 20:42 Temperature 99.1 F Pulse Rate 54 L 55 L Respiratory Rate 16 16 16 Blood Pressure 146/75 H 162/74 H Pulse Oximetry 100 100 100 02/21/18 20:45 02/21/18 21:00 02/21/18 21:30 Temperature Pulse Rate 56 L 60 57 L Respiratory Rate 16 17 18 Blood Pressure 143/74 H 132/72 Pulse Oximetry 100 100 02/21/18 22:00 02/21/18 22:01 02/21/18 22:30 Temperature Pulse Rate 54 L 56 L 53 L Respiratory Rate 19 19 18 Blood Pressure 155/72 H 156/71 H Pulse Oximetry 100 100 100 02/21/18 23:00 02/21/18 23:02 02/21/18 23:30 Temperature Pulse Rate 58 L 56 L 53 L Respiratory Rate 17 17 18 Blood Pressure 185/83 H 136/76 158/82 H Pulse Oximetry 100 100 100 02/22/18 00:00 02/22/18 00:02 02/22/18 00:30 Temperature 98.5 F Pulse Rate 53 L 53 L 52 L Respiratory Rate 18 18 18 Blood Pressure 172/83 H 167/79 H Pulse Oximetry 100 100 100 02/22/18 00:45 02/22/18 01:00 02/22/18 01:30 Temperature Pulse Rate 53 L 53 L Respiratory Rate 17 18 18 Blood Pressure 147/77 H 159/82 H Pulse Oximetry 100 100 100 02/22/18 02:00 02/22/18 02:30 02/22/18 03:00 Temperature Pulse Rate 52 L 53 L 51 L Respiratory Rate 18 17 17 Blood Pressure 149/77 H 143/78 H 167/84 H Pulse Oximetry 100 100 100 02/22/18 03:31 02/22/18 04:00 02/22/18 04:06 Temperature 98.5 F Pulse Rate 53 L 53 L Respiratory Rate 17 17 17 Blood Pressure 176/84 H 160/78 H Pulse Oximetry 100 100 100 02/22/18 04:08 02/22/18 04:30 02/22/18 05:00 Temperature Pulse Rate 53 L 57 L 56 L Respiratory Rate 18 19 19 Blood Pressure 164/77 H 151/75 H Pulse Oximetry 100 100 02/22/18 06:00 Temperature Pulse Rate 56 L Respiratory Rate Blood Pressure Pulse Oximetry Intake & Output 02/21/18 02/22/18 02/22/18 18:59 06:59 18:59 Intake Total 1839.5 / 1839.5 2069 / 2069 Output Total 2900 / 2900 1050 / 1050 Balance -1060.5 / -1060.5 1019 / 1019 Weight 86.4 kg Intake: IV 1317.5 / 1317.5 1200 / 1200 Versed Inj 50 mg In 50 ml @ 2 50 / 50 MG/HR 2 mls/hr IV.CONT TITRATE PRN Rx#:[id number] Diprivan 1000 mg/100 ml Inj 1, 200 / 200 200 / 200 000 mg In 100 ml @ 5 MCG/KG/MIN 2.529 mls/hr IV.CONT TITRATE PRN Rx#:[id number] Zyvox 600 mg Premix 300 ML @ 300 / 300 300 mls/hr IV.SIG Q12H [facility] Rx#: [id number] Zosyn 4.5 GM Premix 4.5 gm In 300 / 300 200 / 200 100 ml @ 200 mls/hr IV.SIG Q6H [facility] Rx#:[id number] Vancomycin Inj 1,750 MG In NS 517.5 / 517.5 Inj 500 ML @ 250 mls/hr IV.SIG Q24H [facility] Rx#:[id number] fentaNYL 10 mcg/mL Premix Drip 250 / 250 500 / 500 2,500 mcg In 250 ml @ 50 MCG/HR 5 mls/hr IV.SIG TITRATE PRN Rx #:[id number] Tube Feeding 152 / 152 369 / 369 Tube Irrigant 120 / 120 Water Bolus Amount 250 / 250 500 / 500 Output: Urine Amount (Catheter) 2900 / 2900 1050 / 1050 Indwelling Urethral Catheter 2900 / 2900 1050 / 1050 Gastric Drainage 0 / 0 Orogastric Tube 0 / 0 Other: Date of Last Bowel Movement 02/21/18 02/21/18 # Bowel Movements 2 2 Result Diagrams: 02/22/18 04:36 02/22/18 04:36 Other Results: Laboratory Results - last 12 hr 02/22/18 02/22/18 02/22/18 00:41 04:36 04:36 WBC 15.2 H RBC 3.69 L Hgb 12.2 Hct 35.7 MCV 96.8 MCH 33.2 MCHC 34.3 RDW 12.6 Plt Count 265 MPV 8.0 Prelim Diff (Auto) Slide review pending Neut % (Auto) 78.9 H Lymph % (Auto) 9.2 [place] % (Auto) 11.8 H Eos % (Auto) 0.0 Baso % (Auto) 0.1 Neut # (Auto) 12.0 H Lymph # (Auto) 1.4 [place] # (Auto) 1.8 H Eos # (Auto) 0.0 Baso # (Auto) 0.0 Differential Comment . Sodium 139 Potassium 4.7 Chloride 105 Carbon Dioxide 23.3 Anion Gap 11 BUN 34 H Creatinine 1.11 H Estimated GFR 60 L POC Glucose 182 H Random Glucose 177 H Calcium 8.2 L Phosphorus 3.6 Magnesium 2.5 Total Bilirubin 0.7 AST 44 H ALT 80 H Alkaline Phosphatase 38 L Total Protein 6.7 Albumin 2.5 L 02/22/18 05:46 WBC RBC Hgb Hct MCV MCH MCHC RDW Plt Count MPV Prelim Diff (Auto) Neut % (Auto) Lymph % (Auto) [place] % (Auto) Eos % (Auto) Baso % (Auto) Neut # (Auto) Lymph # (Auto) [place] # (Auto) Eos # (Auto) Baso # (Auto) Differential Comment Sodium Potassium Chloride Carbon Dioxide Anion Gap BUN Creatinine Estimated GFR POC Glucose 165 H Random Glucose Calcium Phosphorus Magnesium Total Bilirubin AST ALT Alkaline Phosphatase Total Protein Albumin Imaging: Liver Ultrasound 02/21/18 00:00 CONCLUSION: 1. Diffusely increased hepatic echogenicity without volume loss most consistent with hepatic steatosis versus medical liver disease. Chest X-Ray 02/21/18 14:22 CONCLUSION: 1. Stable ETT and NGT. 2. Slight improved perihilar opacities which may reflect improved fluid balance. 3. Persistent bilateral lower lung zone airspace consolidation. Objective Remarks: - Constitutional moderate distress - Routine HEENT Exam Head: normocephalic, atraumatic Eye: PERRL ENT: Severe persistent angioedema with severely swollen and protruding tongue. Oral cavity exam is limited - Routine Neck Exam supple. Absent JVD, carotid bruit - Routine Respiratory Exam Patient mechanically ventilated. No: stridor, wheezes, crackles - Routine Cardiovascular Exam RRR, S1, S2. Absent murmur, gallop, rubs. Hypertensive - Routine Abdominal Exam Soft, normoactive bowel sounds. No tenderness or organomegaly - Routine Extremities Exam No cyanosis, clubbing - Routine Skin Exam Intact. - Routine Neurological Exam Heavily sedated but wakes up easily moves all extremities Assessment and Plan - Assessment and Plan Plan: Neuro: -Sedated with propofol,Versed and fentanyl . -Daily sedation vacation -Monitor neuro status Resp: Severe angioedema Allergic reaction Acute respiratory Failure -Continue with vent support keep sats >92% -On PRVC RR 16, TV 500, It: 1.0, PEEP:5, FIO2: 35% - SBT daily as kj. -Vent bundle, DuoNeb, -CXR 02/21: Slight improved perihilar opacities which may reflect improved fluid balance. Persistent bilateral lower lung zone airspace consolidation -Decadron 6 mg IV q6h -H1 H2 antagonists CVS hypertension -On metoprolol 25mg BID, -Monitor HR and BP keep MAP>65mmhg -Labetalol, Hydralazine PRN Dyslipidemia -Rosuvastatin GI: -Elevated LFT's -On Jevity 1.5 advance to goal rate 45ml/hr currently @35ml/hr -IV Protonix -US liver: Diffusely increased hepatic echogenicity without volume loss most consistent with hepatic steatosis versus medical liver disease. : -Monitor renal function, electrolytes replacement per protocol. -on Lasix 40mg daily ID: -Monitor for signs of infections ( Fever, WBC) -Follow up on Blood : NGTD -Sputum cx 02/18: Staph Aureus, Haemophilus influenza -Continue Zyvox, Vanco, ID is following. -Follow up sputum cx 02/21: pending ENDO: -Electrolyte replacement per protocol -SSI for glycemic control DVT GI prophylaxis -Teds SCDs -Subcu Lovenox -Pepcid 35 minutes of critical care
[2018-02-22] MEDS: Famotidine PF Inj 20 MG/2 ML Vial IV.PUSH SCH ×2 (08:34→20:15)
[2018-02-22] MEDS: Enoxaparin Inj 40 MG/0.4 ML Syringe SQ SCH (08:34)
[2018-02-22] MEDS: Chlorhexidine 0.12% Oral Kit 15 ML UDC OROPHARYNG SCH ×2 (08:35→20:15)
[2018-02-22] MEDS: Metoprolol Tartrate 25 MG Tablet PO SCH ×2 (08:35→20:22)
[2018-02-22] MEDS: Beneprotein Powder Packet G-TUBE SCH ×3 (08:35→17:46)
[2018-02-22 08:57] LABS: Lymphocytes 8 % (9-44); Metamyelocytes 1 % (0-1); Monocytes 13 % (0-8); Myelocytes 1 % (0-0); Promyelocyte 1 % (0-0)
[2018-02-22 08:58] LABS: Platelet Estimate Normal (Normal); Platelet Morphology Normal (Normal); RBC Morphology Normal (Normal)
--- NOTE | 2018-02-22 11:07 | P.PNID ---
Subjective Remarks: Ms. Montgomery is a 63-year-old -[place] female who presented for evaluation of possible allergic reaction. Patient reported that she had been having swelling of the tongue for the past 2-3 hours prior to admission. The patient and family member there went to [employer] for lunch and thereafter she started developing swelling of the tongue. Patient tried Benadryl at home with minimal relief. Patient was essentially forced to come to the hospital. Patient denies any prior history of similar incidents in the past. Patient reportedly has had shellfish in the past without any problems until this admission. She has been taking lisinopril for many years. Patient's son who is in the room reports that patient has been having cough over the last several weeks and likely stopped it sure if this actually happened. Patient was evaluated in the emergency department and since her airway was significantly compromise she was taken to the operating room for a fiber optic nasal intubation by the vp integration. Thereafter patient remains in the ICU under the care of cfd engineer. Currently she is nasally intubated. Upon discussion with the respiratory therapist it appears that patient has copious amounts of secretions. Patient also continues to have low-grade fevers despite broad-spectrum antibiotics in the form of Zosyn and vancomycin. Infectious diseases consulted for evaluation and management of persistent fevers and persistent pneumonia in a patient with angioedema. Overnight events reviewed. No rash No diarrhea No fever since Vanco stopped. Secretions still copious, white to [place] secretions, moderate amount. UO good. Antibiotics: Zosyn IV Zyvox IV Lines: Lines ok Past Medical History: reviewed Allergies/Adverse Reactions: Allergies hydrocodone Allergy (Severe, Unverified 02/15/18 16:45) Dizziness shellfish derived Allergy (Verified 02/15/18 16:45) Anaphylaxis Objective Vital Signs 02/21/18 11:30 02/21/18 11:49 02/21/18 12:00 Temperature 100.9 F H Pulse Rate 61 60 Respiratory Rate 15 16 15 Blood Pressure 117/66 115/68 Pulse Oximetry 100 100 100 02/21/18 12:30 02/21/18 13:00 02/21/18 13:30 Temperature Pulse Rate 60 59 L 60 Respiratory Rate 20 15 15 Blood Pressure 131/71 129/65 133/69 Pulse Oximetry 100 100 100 02/21/18 14:00 02/21/18 14:31 02/21/18 15:00 Temperature Pulse Rate 74 63 61 Respiratory Rate 16 16 16 Blood Pressure 172/88 H 121/60 105/60 Pulse Oximetry 100 100 100 02/21/18 15:30 02/21/18 16:00 02/21/18 16:11 Temperature 100.7 F H Pulse Rate 59 L 57 L 57 L Respiratory Rate 16 16 16 Blood Pressure 116/62 119/66 Pulse Oximetry 100 100 02/21/18 16:32 02/21/18 17:00 02/21/18 17:30 Temperature Pulse Rate 63 60 56 L Respiratory Rate 13 13 17 Blood Pressure 114/75 123/70 123/70 Pulse Oximetry 100 100 100 02/21/18 18:00 02/21/18 18:30 02/21/18 19:00 Temperature Pulse Rate 56 L 58 L 54 L Respiratory Rate 16 17 17 Blood Pressure 127/69 139/70 141/74 H Pulse Oximetry 100 100 100 02/21/18 19:30 02/21/18 20:00 02/21/18 20:30 Temperature 99.1 F Pulse Rate 54 L 54 L 55 L Respiratory Rate 16 16 16 Blood Pressure 146/72 H 146/75 H 162/74 H Pulse Oximetry 100 100 100 02/21/18 20:42 02/21/18 20:45 02/21/18 21:00 Temperature Pulse Rate 56 L 60 Respiratory Rate 16 16 17 Blood Pressure 143/74 H Pulse Oximetry 100 100 02/21/18 21:30 02/21/18 22:00 02/21/18 22:01 Temperature Pulse Rate 57 L 54 L 56 L Respiratory Rate 18 19 19 Blood Pressure 132/72 155/72 H Pulse Oximetry 100 100 100 02/21/18 22:30 02/21/18 23:00 02/21/18 23:02 Temperature Pulse Rate 53 L 58 L 56 L Respiratory Rate 18 17 17 Blood Pressure 156/71 H 185/83 H 136/76 Pulse Oximetry 100 100 100 02/21/18 23:30 02/22/18 00:00 02/22/18 00:02 Temperature 98.5 F Pulse Rate 53 L 53 L 53 L Respiratory Rate 18 18 18 Blood Pressure 158/82 H 172/83 H Pulse Oximetry 100 100 100 02/22/18 00:30 02/22/18 00:45 02/22/18 01:00 Temperature Pulse Rate 52 L 53 L Respiratory Rate 18 17 18 Blood Pressure 167/79 H 147/77 H Pulse Oximetry 100 100 100 02/22/18 01:30 02/22/18 02:00 02/22/18 02:30 Temperature Pulse Rate 53 L 52 L 53 L Respiratory Rate 18 18 17 Blood Pressure 159/82 H 149/77 H 143/78 H Pulse Oximetry 100 100 100 02/22/18 03:00 02/22/18 03:31 02/22/18 04:00 Temperature 98.5 F Pulse Rate 51 L 53 L 53 L Respiratory Rate 17 17 17 Blood Pressure 167/84 H 176/84 H 160/78 H Pulse Oximetry 100 100 100 02/22/18 04:06 02/22/18 04:08 02/22/18 04:30 Temperature Pulse Rate 53 L 57 L Respiratory Rate 17 18 19 Blood Pressure 164/77 H Pulse Oximetry 100 100 02/22/18 05:00 02/22/18 06:00 02/22/18 07:00 Temperature Pulse Rate 56 L 56 L 55 L Respiratory Rate 19 18 Blood Pressure 151/75 H Pulse Oximetry 100 02/22/18 08:00 02/22/18 08:10 02/22/18 10:00 Temperature 98.2 F Pulse Rate 53 L 69 Respiratory Rate 19 18 Blood Pressure 174/81 H Pulse Oximetry 100 Intake & Output 02/21/18 02/22/18 02/22/18 18:59 06:59 18:59 Intake Total 1839.5 / 1839.5 2069 / 2069 Output Total 2900 / 2900 1050 / 1050 Balance -1060.5 / -1060.5 1019 / 1019 Weight 86.4 kg Intake: IV 1317.5 / 1317.5 1200 / 1200 Versed Inj 50 mg In 50 ml @ 2 50 / 50 MG/HR 2 mls/hr IV.CONT TITRATE PRN Rx#:[id number] Diprivan 1000 mg/100 ml Inj 1, 200 / 200 200 / 200 000 mg In 100 ml @ 5 MCG/KG/MIN 2.529 mls/hr IV.CONT TITRATE PRN Rx#:[id number] Zyvox 600 mg Premix 300 ML @ 300 / 300 300 mls/hr IV.SIG Q12H [facility] Rx#: [id number] Zosyn 4.5 GM Premix 4.5 gm In 300 / 300 200 / 200 100 ml @ 200 mls/hr IV.SIG Q6H [facility] Rx#:[id number] Vancomycin Inj 1,750 MG In NS 517.5 / 517.5 Inj 500 ML @ 250 mls/hr IV.SIG Q24H [facility] Rx#:[id number] fentaNYL 10 mcg/mL Premix Drip 250 / 250 500 / 500 2,500 mcg In 250 ml @ 50 MCG/HR 5 mls/hr IV.SIG TITRATE PRN Rx #:[id number] Tube Feeding 152 / 152 369 / 369 Tube Irrigant 120 / 120 Water Bolus Amount 250 / 250 500 / 500 Output: Urine Amount (Catheter) 2900 / 2900 1050 / 1050 Indwelling Urethral Catheter 2900 / 2900 1050 / 1050 Gastric Drainage 0 / 0 Orogastric Tube 0 / 0 Other: Date of Last Bowel Movement 02/21/18 02/21/18 02/21/18 # Bowel Movements 2 2 02/18/18 08:50 Blood - Peripheral Aerobic Blood Culture - Preliminary No growth in 4 days 02/18/18 08:50 Blood - Peripheral Anaerobic Blood Culture - Preliminary No growth in 4 days 02/18/18 08:58 Blood - Peripheral Aerobic Blood Culture - Preliminary No growth in 4 days 02/18/18 08:58 Blood - Peripheral Anaerobic Blood Culture - Preliminary No growth in 4 days 02/21/18 22:50 Sputum - Endotracheal Gram Stain - Pending 02/21/18 22:50 Sputum - Endotracheal Sputum Culture - Pending 02/18/18 08:15 Sputum - Endotracheal Gram Stain - Final 02/18/18 08:15 Sputum - Endotracheal Sputum Culture - Final Staphylococcus aureus Haemophilus influenzae Lab - Hematology Results 02/21/18 02/22/18 04:34 04:36 WBC 12.8 H 15.2 H RBC 3.56 L 3.69 L Hgb 11.8 12.2 Hct 34.4 L 35.7 MCV 96.7 96.8 MCH 33.1 33.2 MCHC 34.3 34.3 RDW 12.6 12.6 Plt Count 250 265 MPV 7.6 8.0 Prelim Diff (Auto) Slide review pending Neut % (Auto) 67.5 78.9 H Lymph % (Auto) 16.3 9.2 [place] % (Auto) 15.7 H 11.8 H Eos % (Auto) 0.1 0.0 Baso % (Auto) 0.4 0.1 Neut # (Auto) 8.6 H 12.0 H Lymph # (Auto) 2.1 1.4 [place] # (Auto) 2.0 H 1.8 H Eos # (Auto) 0.0 0.0 Baso # (Auto) 0.1 0.0 WBC Differential . Manual diff final Seg Neuts % (Manual) 75 H Band Neuts % (Manual) 1 Lymphocytes % (Manual) 8 L Monocytes % (Manual) 13 H Metamyelocytes % (Man) 1 Myelocytes % (Man) 1 H Promyelocytes % (Man) 1 H Abs Neuts (Manual) 12.0 H Differential Comment Auto diff final . Platelet Estimate Normal Platelet Morphology Normal RBC Morphology Normal Lab - Chemistry Results 02/20/18 02/21/18 02/21/18 17:13 00:55 04:34 Sodium 143 Potassium 4.6 Chloride 109 H Carbon Dioxide 26.8 Anion Gap 7 BUN 28 H Creatinine 1.14 H Estimated GFR 58 L POC Glucose 183 H 132 H Random Glucose 100 Calcium 7.9 L Phosphorus 2.9 Magnesium 2.4 Total Bilirubin 0.5 AST 50 H ALT 74 H Alkaline Phosphatase 39 L Total Protein 6.6 Albumin 2.5 L 02/21/18 02/21/18 02/21/18 05:09 11:19 17:55 Sodium Potassium Chloride Carbon Dioxide Anion Gap BUN Creatinine Estimated GFR POC Glucose 104 128 H 143 H Random Glucose Calcium Phosphorus Magnesium Total Bilirubin AST ALT Alkaline Phosphatase Total Protein Albumin 02/22/18 02/22/18 02/22/18 00:41 04:36 05:46 Sodium 139 Potassium 4.7 Chloride 105 Carbon Dioxide 23.3 Anion Gap 11 BUN 34 H Creatinine 1.11 H Estimated GFR 60 L POC Glucose 182 H 165 H Random Glucose 177 H Calcium 8.2 L Phosphorus 3.6 Magnesium 2.5 Total Bilirubin 0.7 AST 44 H ALT 80 H Alkaline Phosphatase 38 L Total Protein 6.7 Albumin 2.5 L Imaging: ITS Impressions Liver Ultrasound 02/21/18 00:00 CONCLUSION: 1. Diffusely increased hepatic echogenicity without volume loss most consistent with hepatic steatosis versus medical liver disease. Chest X-Ray 02/21/18 14:22 CONCLUSION: 1. Stable ETT and NGT. 2. Slight improved perihilar opacities which may reflect improved fluid balance. 3. Persistent bilateral lower lung zone airspace consolidation. Physical Exam: GENERAL: Sedated, on the vent. Morbidly obese. SKIN: Cool and dry, no generalized rash HEAD: Atraumatic. Normocephalic. No temporal or scalp tenderness. EYES: Pupils equal round and reactive. Scleral icterus. No injection or drainage. No petechia ENT: Nasal intubated NECK: Trachea midline. Supple, nontender, no meningeal signs. CARDIOVASCULAR: HS audible. RESPIRATORY: Air entry equal bilaterally. Clear to auscultation bilaterally. GASTROINTESTINAL: Abdomen soft,NT MUSCULOSKELETAL: Extremities without clubbing, cyanosis. NEUROLOGICAL: Sedated Psych could not be assessed IV line sites ok. Assessment and Plan - Plan Sepsis persistent (fever, leucocytosis, pneumonia) Health care vs aspiration Pneumonia Persistent fever: ? Drug fever, ? new infection MSSA and H.Influenza pneumonia. Angioedema on admission: Shellfish versus TROY-I. Primary team managing. Nasal intubation, on ventilator. Recs: Continue Zosyn IV Continue Zyvox IV Follow cultures Follow clinical course. jazzy RN jazzy Patients in room. jazzy Fernandes.
[2018-02-23] MEDS: Insulin NovoLIN Regular Correctional Sugar Inj SQ SCH ×4 (00:37→17:48)
[2018-02-23] MEDS: Oral Hygiene Kit OROPHARYNG SCH ×4 (00:38→15:50)
[2018-02-23] MEDS: Piperacil/Tazo 4.5 GM Premix 4.5 GM/100 ML BAG IV.SIG SCH ×4 (01:22→20:42)
[2018-02-23] MEDS: Propofol 1000 mg/100 ml Inj 1,000 MG/100 ML BOTTLE IV.CONT PRN (06:29)
[2018-02-23 07:22] LABS: Albumin 2.6 g/dL (3.4-5.0); Anion Gap 12 meq/L (5-15); Aspartate Aminotransferase 45 U/L (15-37); Blood Urea Nitrogen 39 mg/dL (7-18); Calcium 8.2 mg/dL (8.5-10.1); Carbon Dioxide 21.9 meq/L (21.0-32.0); Chloride 105 meq/L (98-107); Glomerular Filtration Rate 65 mL/min (>89); Glucose,Random 122 mg/dL (74-106); Magnesium 2.6 mg/dL (1.5-2.5); Potassium 4.5 meq/L (3.5-5.1)
[2018-02-23 07:23] LABS: Alanine Aminotransferase 76 U/L (10-53); Phosphorus 3.7 mg/dL (2.5-4.9)
[2018-02-23 07:25] LABS: Alkaline Phosphatase 40 U/L (45-117)
[2018-02-23 07:26] LABS: Sodium 139 meq/L (136-145)
--- NOTE | 2018-02-23 07:31 | P.PNCC ---
Subjective Subjective Remarks/Hospital Course: 63-year-old female that presents for evaluation of allergic reaction. Patient reports that she has been having swelling tongue for the past 2-3 hours. Per patient and family member they went to have [place] today for lunch and after this she developed the swelling. Patient herself did not want to come but they took Benadryl with minimal relief. essentially "force the patient " To come here. Patient denies any history of this in the past. She does state that she had shellfish today but she had shellfish in the past. She denies any other medical issues. She does take lisinopril for many years. No chest pain or shortness of breath. Her tongue is severely swollen and most of the history is obtained from the as patient cannot really talk for the most part. In the emergency department her airway appears to be significantly compromised and she was taken to operating room for fibroscopy nasal intubation by hose stripper. SUBJ 02/16: Remains intubated heavily sedated with propofol. Severe tongue swelling with protrusion. Hypotensive overnight I have ordered Cardene infusion and as needed IV labetalol. at the bedside updated 02/17 No events overnight. Sedated with Diprivan,fentanyl; and intubated. Afebrile. 02/18: No events overnight. Sedated and intubated. T:99.8 02/19 Patient remains sedated with Fentanyl and Diprivan. Tolerated CPAP for 6 hrs yesterday. T: 100.3. Her tongue still swollen with protrusion. 02/20 No events overnight. Sedated and intubated. T:100.2 02/21 Patient remains sedated and intubated, Versed drip 2mg/hr added overnight for agitation. 02/22 No events overnight. Sedated and intubated. Afebrile. 02/23 No events overnight. Afebrile, sedated and intubated, tolerated CPAP all day yesterday. Objective Vital Signs / I&O: Vital Signs 02/22/18 07:30 02/22/18 08:00 02/22/18 08:10 Temperature 98.2 F Pulse Rate 53 L 53 L Respiratory Rate 18 18 18 Blood Pressure 170/81 H 174/81 H Pulse Oximetry 100 100 100 02/22/18 08:31 02/22/18 09:00 02/22/18 09:30 Temperature Pulse Rate 57 L 74 74 Respiratory Rate 19 7 L 17 Blood Pressure 149/70 H 127/69 109/59 L Pulse Oximetry 100 100 100 02/22/18 10:00 02/22/18 10:30 02/22/18 11:00 Temperature Pulse Rate 69 65 65 Respiratory Rate 17 22 22 Blood Pressure 109/57 L 137/69 143/75 H Pulse Oximetry 100 100 100 02/22/18 11:30 02/22/18 12:00 02/22/18 12:30 Temperature 98.1 F Pulse Rate 70 64 63 Respiratory Rate 23 21 21 Blood Pressure 146/78 H 135/71 124/65 Pulse Oximetry 100 100 100 02/22/18 13:00 02/22/18 13:30 02/22/18 14:00 Temperature Pulse Rate 67 67 66 Respiratory Rate 22 21 19 Blood Pressure 137/76 143/77 H 138/76 Pulse Oximetry 100 100 100 02/22/18 14:13 02/22/18 14:30 02/22/18 15:00 Temperature Pulse Rate 61 70 68 Respiratory Rate 21 20 23 Blood Pressure 160/85 H 144/77 H Pulse Oximetry 100 100 100 02/22/18 15:30 02/22/18 16:00 02/22/18 16:30 Temperature 98.7 F Pulse Rate 68 64 65 Respiratory Rate 20 21 20 Blood Pressure 158/83 H 168/84 H 180/97 H Pulse Oximetry 97 98 95 02/22/18 17:00 02/22/18 17:30 02/22/18 18:00 Temperature Pulse Rate 59 L 59 L 59 L Respiratory Rate 19 20 20 Blood Pressure 165/90 H 167/86 H 155/81 H Pulse Oximetry 96 97 97 02/22/18 18:30 02/22/18 19:00 02/22/18 19:30 Temperature Pulse Rate 63 67 62 Respiratory Rate 21 14 15 Blood Pressure 167/93 H 172/88 H 155/88 H Pulse Oximetry 98 97 97 02/22/18 19:43 02/22/18 19:44 02/22/18 20:00 Temperature 98.8 F Pulse Rate 63 69 Respiratory Rate 15 15 18 Blood Pressure 162/88 H Pulse Oximetry 100 100 96 02/22/18 20:30 02/22/18 21:00 02/22/18 21:05 Temperature Pulse Rate 70 61 Respiratory Rate 26 H 17 17 Blood Pressure 153/85 H 166/87 H Pulse Oximetry 95 98 02/22/18 21:30 02/22/18 22:00 02/22/18 22:51 Temperature Pulse Rate 60 62 66 Respiratory Rate 17 18 16 Blood Pressure 157/81 H 173/89 H 150/67 H Pulse Oximetry 99 100 96 02/22/18 23:00 02/22/18 23:01 02/22/18 23:31 Temperature Pulse Rate 67 65 56 L Respiratory Rate 0 L 0 L 16 Blood Pressure 172/75 H 138/67 Pulse Oximetry 97 97 98 02/23/18 00:00 02/23/18 00:30 02/23/18 00:45 Temperature 98.8 F Pulse Rate 51 L 50 L Respiratory Rate 16 16 16 Blood Pressure 140/67 150/68 H Pulse Oximetry 98 99 99 02/23/18 01:00 02/23/18 01:31 02/23/18 02:00 Temperature Pulse Rate 50 L 51 L 50 L Respiratory Rate 16 0 L 0 L Blood Pressure 158/72 H 148/67 H Pulse Oximetry 99 99 99 02/23/18 02:01 02/23/18 02:31 02/23/18 03:00 Temperature Pulse Rate 50 L 52 L 51 L Respiratory Rate 0 L 1 L 10 L Blood Pressure 138/63 167/73 H Pulse Oximetry 99 99 99 02/23/18 03:01 02/23/18 03:30 02/23/18 03:37 Temperature Pulse Rate 52 L 53 L 53 L Respiratory Rate 13 10 L 0 L Blood Pressure 172/77 H 195/87 H 167/80 H Pulse Oximetry 99 99 98 02/23/18 04:00 02/23/18 04:16 02/23/18 04:17 Temperature 98.8 F Pulse Rate 51 L 65 Respiratory Rate 14 16 25 H Blood Pressure 173/77 H Pulse Oximetry 98 98 02/23/18 06:00 Temperature Pulse Rate 65 Respiratory Rate Blood Pressure Pulse Oximetry Intake & Output 02/22/18 02/23/18 02/23/18 18:59 06:59 18:59 Intake Total 918 / 918 1395 / 1395 Output Total 1999 950 / 950 Balance -1082 / -1082 445 / 445 Weight 85.946 kg Intake: IV 600 / 600 950 / 950 Diprivan 1000 mg/100 ml Inj 1, 100 / 100 200 / 200 000 mg In 100 ml @ 5 MCG/KG/MIN 2.529 mls/hr IV.CONT TITRATE PRN Rx#:[id number] Zyvox 600 mg Premix 300 ML @ 300 / 300 300 / 300 300 mls/hr IV.SIG Q12H SHAILA Rx#: [id number] Zosyn 4.5 GM Premix 4.5 gm In 200 / 200 200 / 200 100 ml @ 200 mls/hr IV.SIG Q6H SHAILA Rx#:[id number] fentaNYL 10 mcg/mL Premix Drip 250 / 250 2,500 mcg In 250 ml @ 50 MCG/HR 5 mls/hr IV.SIG TITRATE PRN Rx #:[id number] Tube Feeding 68 / 68 325 / 325 Tube Irrigant 120 / 120 Water Bolus Amount 250 / 250 Output: Urine Amount (Catheter) 1999 950 / 950 Indwelling Urethral Catheter 1999 950 / 950 Gastric Drainage 0 / 0 Orogastric Tube 0 / 0 Other: Date of Last Bowel Movement 02/21/18 02/23/18 # Bowel Movements 1 Result Diagrams: 02/23/18 09:45 02/23/18 05:56 Other Results: Laboratory Results - last 12 hr 02/23/18 02/23/18 02/23/18 00:14 05:07 05:56 Sodium 139 Potassium 4.5 Chloride 105 Carbon Dioxide 21.9 Anion Gap 12 BUN 39 H Creatinine 1.04 H Estimated GFR 65 L POC Glucose 111 H 125 H Random Glucose 122 H Calcium 8.2 L Phosphorus 3.7 Magnesium 2.6 H Total Bilirubin 0.7 AST 45 H ALT 76 H Alkaline Phosphatase 40 L Total Protein 7.0 Albumin 2.6 L Imaging: Liver Ultrasound 02/21/18 00:00 CONCLUSION: 1. Diffusely increased hepatic echogenicity without volume loss most consistent with hepatic steatosis versus medical liver disease. Chest X-Ray 02/21/18 14:22 CONCLUSION: 1. Stable ETT and NGT. 2. Slight improved perihilar opacities which may reflect improved fluid balance. 3. Persistent bilateral lower lung zone airspace consolidation. Objective Remarks: - Constitutional moderate distress - Routine HEENT Exam Head: normocephalic, atraumatic Eye: PERRL ENT: Severe persistent angioedema with severely swollen and protruding tongue. Oral cavity exam is limited - Routine Neck Exam supple. Absent JVD, carotid bruit - Routine Respiratory Exam Patient mechanically ventilated. No: stridor, wheezes, crackles - Routine Cardiovascular Exam RRR, S1, S2. Absent murmur, gallop, rubs. Hypertensive - Routine Abdominal Exam Soft, normoactive bowel sounds. No tenderness or organomegaly - Routine Extremities Exam No cyanosis, clubbing - Routine Skin Exam Intact. - Routine Neurological Exam Heavily sedated but wakes up easily moves all extremities Assessment and Plan - Assessment and Plan Plan: Neuro: -Sedated with propofol and fentanyl. Off Versed -Daily sedation vacation -Monitor neuro status Resp: Severe angioedema Allergic reaction Acute respiratory Failure -Continue with vent support keep sats >92% -On PRVC RR 16, TV 500, It: 1.0, PEEP:5, FIO2: 35% - SBT daily as kj. Possible extubation today -Vent bundle, DuoNeb, check CXR today -CXR 02/21: Slight improved perihilar opacities which may reflect improved fluid balance. Persistent bilateral lower lung zone airspace consolidation -Decadron 6 mg IV q6h -H1 H2 antagonists CVS hypertension -On metoprolol 25mg BID, -Monitor HR and BP keep MAP>65mmhg -Labetalol, Hydralazine PRN Dyslipidemia -Rosuvastatin GI: -Elevated LFT's -On Jevity 1.5 advance to goal rate 45ml/hr currently @35ml/hr -IV Protonix. Speech eval once extubated. -US liver: Diffusely increased hepatic echogenicity without volume loss most consistent with hepatic steatosis versus medical liver disease. : -Monitor renal function, electrolytes replacement per protocol. -on Lasix 40mg daily ID: -Monitor for signs of infections ( Fever, WBC) -Follow up on Blood : NGTD -Sputum cx 02/18: Staph Aureus, Haemophilus influenza -Continue Zyvox, Zosyn, ID is following. -Follow up sputum cx 02/21: GNR -C-diff PCR positive today will add Vanco 125mg QID ENDO: -Electrolyte replacement per protocol -SSI for glycemic control DVT GI prophylaxis -Teds SCDs -Subcu Lovenox -Pepcid 35 minutes of critical care
[2018-02-23] MEDS: Enoxaparin Inj 40 MG/0.4 ML Syringe SQ SCH (08:59)
[2018-02-23] MEDS: Metoprolol Tartrate 25 MG Tablet PO SCH ×2 (08:59→20:43)
[2018-02-23] MEDS: Chlorhexidine 0.12% Oral Kit 15 ML UDC OROPHARYNG SCH ×2 (08:59→20:42)
[2018-02-23] MEDS: Famotidine PF Inj 20 MG/2 ML Vial IV.PUSH SCH ×2 (08:59→20:43)
[2018-02-23] MEDS: Beneprotein Powder Packet G-TUBE SCH ×3 (08:59→17:48)
--- NOTE | 2018-02-23 10:06 | XR ---
EXAM DATE: 02/23/2018 9:31 AM EDT AGE/SEX: 63 years / Female INDICATIONS: Respiratory failure. CLINICAL DATA: This is the patient's subsequent encounter. Patient reports that signs and symptoms h ave been present for 4 - 6 days and indicates a pain score of Nonresponsive. MEDICAL/SURGICAL HISTORY: Non-responsive. Non-responsive. COMPARISON: C, CHEST 1V SINGLE AP, 02/21/2018. . FINDINGS: Stable ETT and NGT. Slightly improved bilateral lower lung zone airspace consolidation and perihilar opacities. Cardiac silhouette remains enlarged. Remainder of the exam is unchanged. CONCLUSION: 1. Stable ETT and NGT. 2. Cardiomegaly with slight improved positive fluid balance. 3. Slightly improved bilateral lower lobe airspace disease. Electronically signed by: Nick García MD 02/23/2018 10:05 AM EDT
--- NOTE | 2018-02-23 10:10 | P.PNID ---
Subjective Remarks: Ms. Montgomery is a 63-year-old -Portuguese female who presented for evaluation of possible allergic reaction. Patient reported that she had been having swelling of the tongue for the past 2-3 hours prior to admission. The patient and family member there went to [employer] for lunch and thereafter she started developing swelling of the tongue. Patient tried Benadryl at home with minimal relief. Patient was essentially forced to come to the hospital. Patient denies any prior history of similar incidents in the past. Patient reportedly has had shellfish in the past without any problems until this admission. She has been taking lisinopril for many years. Patient's son who is in the room reports that patient has been having cough over the last several weeks and likely stopped it sure if this actually happened. Patient was evaluated in the emergency department and since her airway was significantly compromise she was taken to the operating room for a fiber optic nasal intubation by the manager english. Thereafter patient remains in the ICU under the care of oil bay technician. Currently she is nasally intubated. Upon discussion with the respiratory therapist it appears that patient has copious amounts of secretions. Patient also continues to have low-grade fevers despite broad-spectrum antibiotics in the form of Zosyn and vancomycin. Infectious diseases consulted for evaluation and management of persistent fevers and persistent pneumonia in a patient with angioedema. Overnight events reviewed. No rash No diarrhea No fever Secretions still copious, white to mckeon secretions, moderate amount. UO good. Alert, oriented, follows commands. Antibiotics: Zosyn IV Zyvox IV Lines: Lines ok Past Medical History: reviewed Allergies/Adverse Reactions: Allergies hydrocodone Allergy (Severe, Unverified 02/15/18 16:45) Dizziness shellfish derived Allergy (Verified 02/15/18 16:45) Anaphylaxis Objective Vital Signs 02/22/18 10:30 02/22/18 11:00 02/22/18 11:30 Temperature Pulse Rate 65 65 70 Respiratory Rate 22 22 23 Blood Pressure 137/69 143/75 H 146/78 H Pulse Oximetry 100 100 100 02/22/18 12:00 02/22/18 12:30 02/22/18 13:00 Temperature 98.1 F Pulse Rate 64 63 67 Respiratory Rate 21 21 22 Blood Pressure 135/71 124/65 137/76 Pulse Oximetry 100 100 100 02/22/18 13:30 02/22/18 14:00 02/22/18 14:13 Temperature Pulse Rate 67 66 61 Respiratory Rate 21 19 21 Blood Pressure 143/77 H 138/76 Pulse Oximetry 100 100 100 02/22/18 14:30 02/22/18 15:00 02/22/18 15:30 Temperature Pulse Rate 70 68 68 Respiratory Rate 20 23 20 Blood Pressure 160/85 H 144/77 H 158/83 H Pulse Oximetry 100 100 97 02/22/18 16:00 02/22/18 16:30 02/22/18 17:00 Temperature 98.7 F Pulse Rate 64 65 59 L Respiratory Rate 21 20 19 Blood Pressure 168/84 H 180/97 H 165/90 H Pulse Oximetry 98 95 96 02/22/18 17:30 02/22/18 18:00 02/22/18 18:30 Temperature Pulse Rate 59 L 59 L 63 Respiratory Rate 20 20 21 Blood Pressure 167/86 H 155/81 H 167/93 H Pulse Oximetry 97 97 98 02/22/18 19:00 02/22/18 19:30 02/22/18 19:43 Temperature Pulse Rate 67 62 Respiratory Rate 14 15 15 Blood Pressure 172/88 H 155/88 H Pulse Oximetry 97 97 100 02/22/18 19:44 02/22/18 20:00 02/22/18 20:30 Temperature 98.8 F Pulse Rate 63 69 70 Respiratory Rate 15 18 26 H Blood Pressure 162/88 H 153/85 H Pulse Oximetry 100 96 95 02/22/18 21:00 02/22/18 21:05 02/22/18 21:30 Temperature Pulse Rate 61 60 Respiratory Rate 17 17 17 Blood Pressure 166/87 H 157/81 H Pulse Oximetry 98 99 02/22/18 22:00 02/22/18 22:51 02/22/18 23:00 Temperature Pulse Rate 62 66 67 Respiratory Rate 18 16 0 L Blood Pressure 173/89 H 150/67 H Pulse Oximetry 100 96 97 02/22/18 23:01 02/22/18 23:31 02/23/18 00:00 Temperature 98.8 F Pulse Rate 65 56 L 51 L Respiratory Rate 0 L 16 16 Blood Pressure 172/75 H 138/67 140/67 Pulse Oximetry 97 98 98 02/23/18 00:30 02/23/18 00:45 10/15/18 01:00 Temperature Pulse Rate 50 L 50 L Respiratory Rate 16 16 16 Blood Pressure 150/68 H 158/72 H Pulse Oximetry 99 99 99 02/23/18 01:31 02/23/18 02:00 02/23/18 02:01 Temperature Pulse Rate 51 L 50 L 50 L Respiratory Rate 0 L 0 L 0 L Blood Pressure 148/67 H 138/63 Pulse Oximetry 99 99 99 02/23/18 02:31 02/23/18 03:00 02/23/18 03:01 Temperature Pulse Rate 52 L 51 L 52 L Respiratory Rate 1 L 10 L 13 Blood Pressure 167/73 H 172/77 H Pulse Oximetry 99 99 99 02/23/18 03:30 02/23/18 03:37 02/23/18 04:00 Temperature 98.8 F Pulse Rate 53 L 53 L 51 L Respiratory Rate 10 L 0 L 14 Blood Pressure 195/87 H 167/80 H 173/77 H Pulse Oximetry 99 98 98 02/23/18 04:16 02/23/18 04:17 02/23/18 06:00 Temperature Pulse Rate 65 65 Respiratory Rate 16 25 H Blood Pressure Pulse Oximetry 98 02/23/18 07:54 Temperature Pulse Rate Respiratory Rate Blood Pressure Pulse Oximetry 96 Intake & Output 02/22/18 02/23/18 02/23/18 18:59 06:59 18:59 Intake Total 918 / 918 1395 / 1395 Output Total 1999 / 1999 950 / 950 Balance -1082 / -1082 445 / 445 Weight 85.946 kg Intake: IV 600 / 600 950 / 950 Diprivan 1000 mg/100 ml Inj 1, 100 / 100 200 / 200 000 mg In 100 ml @ 5 MCG/KG/MIN 2.529 mls/hr IV.CONT TITRATE PRN Rx#:[id number] Zyvox 600 mg Premix 300 ML @ 300 / 300 300 / 300 300 mls/hr IV.SIG Q12H SHAILA Rx#: [id number] Zosyn 4.5 GM Premix 4.5 gm In 200 / 200 200 / 200 100 ml @ 200 mls/hr IV.SIG Q6H SHAILA Rx#:[id number] fentaNYL 10 mcg/mL Premix Drip 250 / 250 2,500 mcg In 250 ml @ 50 MCG/HR 5 mls/hr IV.SIG TITRATE PRN Rx #:[id number] Tube Feeding 68 / 68 325 / 325 Tube Irrigant 120 / 120 Water Bolus Amount 250 / 250 Output: Urine Amount (Catheter) 1999 950 / 950 Indwelling Urethral Catheter 1999 950 / 950 Gastric Drainage 0 / 0 Orogastric Tube 0 / 0 Other: Date of Last Bowel Movement 02/21/18 02/23/18 # Bowel Movements 1 02/21/18 22:50 Sputum - Endotracheal Gram Stain - Final 02/21/18 22:50 Sputum - Endotracheal Sputum Culture - Preliminary gram negative rods 02/18/18 08:50 Blood - Peripheral Aerobic Blood Culture - Preliminary No growth in 4 days 02/18/18 08:50 Blood - Peripheral Anaerobic Blood Culture - Preliminary No growth in 4 days 02/18/18 08:58 Blood - Peripheral Aerobic Blood Culture - Preliminary No growth in 4 days 02/18/18 08:58 Blood - Peripheral Anaerobic Blood Culture - Preliminary No growth in 4 days 02/18/18 08:15 Sputum - Endotracheal Gram Stain - Final 02/18/18 08:15 Sputum - Endotracheal Sputum Culture - Final Staphylococcus aureus Haemophilus influenzae Lab - Hematology Results 02/22/18 04:36 WBC 15.2 H RBC 3.69 L Hgb 12.2 Hct 35.7 MCV 96.8 MCH 33.2 MCHC 34.3 RDW 12.6 Plt Count 265 MPV 8.0 Prelim Diff (Auto) Slide review pending Neut % (Auto) 78.9 H Lymph % (Auto) 9.2 Hayes % (Auto) 11.8 H Eos % (Auto) 0.0 Baso % (Auto) 0.1 Neut # (Auto) 12.0 H Lymph # (Auto) 1.4 Hayes # (Auto) 1.8 H Eos # (Auto) 0.0 Baso # (Auto) 0.0 WBC Differential Manual diff final Seg Neuts % (Manual) 75 H Band Neuts % (Manual) 1 Lymphocytes % (Manual) 8 L Monocytes % (Manual) 13 H Metamyelocytes % (Man) 1 Myelocytes % (Man) 1 H Promyelocytes % (Man) 1 H Abs Neuts (Manual) 12.0 H Differential Comment . Platelet Estimate Normal Platelet Morphology Normal RBC Morphology Normal Lab - Chemistry Results 02/21/18 02/21/18 02/22/18 11:19 17:55 00:41 Sodium Potassium Chloride Carbon Dioxide Anion Gap BUN Creatinine Estimated GFR POC Glucose 128 H 143 H 182 H Random Glucose Calcium Phosphorus Magnesium Total Bilirubin AST ALT Alkaline Phosphatase Total Protein Albumin 02/22/18 02/22/18 02/22/18 04:36 05:46 11:53 Sodium 139 Potassium 4.7 Chloride 105 Carbon Dioxide 23.3 Anion Gap 11 BUN 34 H Creatinine 1.11 H Estimated GFR 60 L POC Glucose 165 H 255 H Random Glucose 177 H Calcium 8.2 L Phosphorus 3.6 Magnesium 2.5 Total Bilirubin 0.7 AST 44 H ALT 80 H Alkaline Phosphatase 38 L Total Protein 6.7 Albumin 2.5 L 02/22/18 02/23/18 02/23/18 17:15 00:14 05:07 Sodium Potassium Chloride Carbon Dioxide Anion Gap BUN Creatinine Estimated GFR POC Glucose 148 H 111 H 125 H Random Glucose Calcium Phosphorus Magnesium Total Bilirubin AST ALT Alkaline Phosphatase Total Protein Albumin 02/23/18 05:56 Sodium 139 Potassium 4.5 Chloride 105 Carbon Dioxide 21.9 Anion Gap 12 BUN 39 H Creatinine 1.04 H Estimated GFR 65 L POC Glucose Random Glucose 122 H Calcium 8.2 L Phosphorus 3.7 Magnesium 2.6 H Total Bilirubin 0.7 AST 45 H ALT 76 H Alkaline Phosphatase 40 L Total Protein 7.0 Albumin 2.6 L Imaging: ITS Impressions Liver Ultrasound 02/21/18 00:00 CONCLUSION: 1. Diffusely increased hepatic echogenicity without volume loss most consistent with hepatic steatosis versus medical liver disease. Chest X-Ray 02/23/18 09:31 CONCLUSION: 1. Stable ETT and NGT. 2. Cardiomegaly with slight improved positive fluid balance. 3. Slightly improved bilateral lower lobe airspace disease. Physical Exam: GENERAL: Sedated, on the vent. Morbidly obese. SKIN: Cool and dry, no generalized rash HEAD: Atraumatic. Normocephalic. No temporal or scalp tenderness. EYES: Pupils equal round and reactive. Scleral icterus. No injection or drainage. No petechia ENT: Nasal intubated NECK: Trachea midline. Supple, nontender, no meningeal signs. CARDIOVASCULAR: HS audible. RESPIRATORY: Air entry equal bilaterally. Clear to auscultation bilaterally. GASTROINTESTINAL: Abdomen soft,NT MUSCULOSKELETAL: Extremities without clubbing, cyanosis. NEUROLOGICAL: Sedated Psych could not be assessed IV line sites ok. Assessment and Plan - Plan Sepsis persistent (fever, leucocytosis, pneumonia) Health care vs aspiration Pneumonia Persistent fever: ? Drug fever, ? new infection MSSA and H.Influenza pneumonia. Angioedema on admission: Shellfish versus TROY-I. Primary team managing. Nasal intubation, on ventilator. Recs: Continue Zosyn IV Continue Zyvox IV Follow cultures Follow clinical course. jazzy RN jazzy Patients in room. jazzy [facility] MD Fernandes.
[2018-02-23 10:34] LABS: Baso # (Auto) 0.1 th/mm3 (0.0-0.2); Baso % (Auto) 0.3 % (0.0-2.0); Hematocrit 42.8 % (35.0-46.0); Hemoglobin 14.3 gm/dL (11.6-15.3); Lymph # (Auto) 2.7 th/mm3 (1.0-4.8); Lymph % (Auto) 10.8 % (9.0-44.0); Mean Corpuscular HGB Conc 33.5 % (32.0-36.0); Mean Corpuscular Hemoglobin 32.7 pg (27.0-34.0); Mean Corpuscular Volume 97.6 fL (80.0-100.0); Mean Platelet Volume 8.2 fL (7.0-11.0); Neut % (Auto) 80.9 % (16.0-70.0); Platelet Count 378 th/mm3 (150-450); Red Blood Count 4.38 mil/mm3 (4.00-5.30); Red Cell Distribution Width 12.6 % (11.6-17.2); White Blood Count 24.8 th/mm3 (4.0-11.0)
[2018-02-23 10:42] LABS: ABG Base Excess -0.6 mmol/L (-2-2); ABG PCO2 38 mmHg (38-42); ABG PO2 84 mmHG (61-120)
[2018-02-23] MEDS ORDERED: Pharmacy Ordered Lab Info OTHER ONE (10:45)
[2018-02-23 11:17] LABS: Lymphocytes 17 % (9-44); Monocytes 10 % (0-8); Promyelocyte 1 % (0-0)
[2018-02-23 11:18] LABS: Platelet Estimate Normal (Normal); Platelet Morphology Normal (Normal); RBC Morphology Normal (Normal)
[2018-02-23] MEDS ORDERED: Lidocaine 2% Inj 50 ML Vial ONE (17:31)
[2018-02-24] MEDS: Insulin NovoLIN Regular Correctional Sugar Inj SQ SCH ×5 (00:24→21:51)
[2018-02-24] MEDS: Oral Hygiene Kit OROPHARYNG SCH ×4 (00:26→18:26)
[2018-02-24] MEDS: Piperacil/Tazo 4.5 GM Premix 4.5 GM/100 ML BAG IV.SIG SCH (03:00)
[2018-02-24 07:44] LABS: Baso % (Auto) 0.2 % (0.0-2.0); Hematocrit 37.2 % (35.0-46.0); Hemoglobin 12.9 gm/dL (11.6-15.3); Lymph # (Auto) 0.8 th/mm3 (1.0-4.8); Lymph % (Auto) 4.6 % (9.0-44.0); Mean Corpuscular HGB Conc 34.5 % (32.0-36.0); Mean Corpuscular Hemoglobin 33.1 pg (27.0-34.0); Mean Corpuscular Volume 95.8 fL (80.0-100.0); Mean Platelet Volume 7.7 fL (7.0-11.0); Mono # (Auto) 1.8 th/mm3 (0.0-0.9); Mono % (Auto) 10.3 % (0.0-8.0); Neut # (Auto) 14.8 th/mm3 (1.8-7.7); Neut % (Auto) 84.9 % (16.0-70.0); Platelet Count 302 th/mm3 (150-450); Red Blood Count 3.89 mil/mm3 (4.00-5.30); Red Cell Distribution Width 12.3 % (11.6-17.2); White Blood Count 17.4 th/mm3 (4.0-11.0)
[2018-02-24 08:14] LABS: Albumin 2.7 g/dL (3.4-5.0); Anion Gap 12 meq/L (5-15); Aspartate Aminotransferase 32 U/L (15-37); Calcium 8.9 mg/dL (8.5-10.1); Carbon Dioxide 21.9 meq/L (21.0-32.0); Chloride 101 meq/L (98-107); Glomerular Filtration Rate 60 mL/min (>89); Glucose,Random 128 mg/dL (74-106); Magnesium 2.8 mg/dL (1.5-2.5); Potassium 4.2 meq/L (3.5-5.1); Sodium 135 meq/L (136-145)
[2018-02-24 08:23] LABS: Alanine Aminotransferase 67 U/L (10-53); Alkaline Phosphatase 40 U/L (45-117); Blood Urea Nitrogen 42 mg/dL (7-18); Phosphorus 4.3 mg/dL (2.5-4.9); Total Protein 6.8 g/dL (6.4-8.2)
[2018-02-24 09:22] LABS: Lymphocytes 13 % (9-44); Monocytes 4 % (0-8)
[2018-02-24 09:23] LABS: Platelet Estimate Normal (Normal); Platelet Morphology Normal (Normal); RBC Morphology Normal (Normal)
[2018-02-24] MEDS: Metoprolol Tartrate 25 MG Tablet PO SCH (09:38)
[2018-02-24] MEDS: Enoxaparin Inj 40 MG/0.4 ML Syringe SQ SCH (09:39)
[2018-02-24] MEDS: Beneprotein Powder Packet G-TUBE SCH ×3 (09:39→18:26)
[2018-02-24] MEDS: Famotidine PF Inj 20 MG/2 ML Vial IV.PUSH SCH ×2 (09:39→21:52)
[2018-02-24] MEDS: Chlorhexidine 0.12% Oral Kit 15 ML UDC OROPHARYNG SCH ×2 (09:40→21:47)
--- NOTE | 2018-02-24 10:58 | P.PNCC ---
Subjective Subjective Remarks/Hospital Course: 63-year-old female that presents for evaluation of allergic reaction. Patient reports that she has been having swelling tongue for the past 2-3 hours. Per patient and family member they went to have [employer] today for lunch and after this she developed the swelling. Patient herself did not want to come but they took Benadryl with minimal relief. essentially "force the patient " To come here. Patient denies any history of this in the past. She does state that she had shellfish today but she had shellfish in the past. She denies any other medical issues. She does take lisinopril for many years. No chest pain or shortness of breath. Her tongue is severely swollen and most of the history is obtained from the as patient cannot really talk for the most part. In the emergency department her airway appears to be significantly compromised and she was taken to operating room for fibroscopy nasal intubation by insole department worker. 02/16: Remains intubated heavily sedated with propofol. Severe tongue swelling with protrusion. Hypotensive overnight I have ordered Cardene infusion and as needed IV labetalol. at the bedside updated 02/17 No events overnight. Sedated with Diprivan,fentanyl; and intubated. Afebrile. 02/18: No events overnight. Sedated and intubated. T:99.8 02/19 Patient remains sedated with Fentanyl and Diprivan. Tolerated CPAP for 6 hrs yesterday. T: 100.3. Her tongue still swollen with protrusion. 02/20 No events overnight. Sedated and intubated. T:100.2 02/21 Patient remains sedated and intubated, Versed drip 2mg/hr added overnight for agitation. 02/22 No events overnight. Sedated and intubated. Afebrile. 02/23 No events overnight. Afebrile, sedated and intubated, tolerated CPAP all day yesterday. Subjective 02/24: Somewhat hypertensive. Extubated intolerant at the present time. Complaining of urinary retention and generalized weakness. Objective Vital Signs / I&O: Vital Signs 02/23/18 11:24 02/23/18 12:00 02/23/18 14:00 Temperature 98.9 F Pulse Rate 90 98 H 98 H Respiratory Rate 16 31 H Blood Pressure 141/77 H Pulse Oximetry 96 02/23/18 15:43 02/23/18 16:00 02/23/18 18:00 Temperature 99 F Pulse Rate 94 H 81 79 Respiratory Rate 20 25 H Blood Pressure 149/79 H Pulse Oximetry 95 02/23/18 19:56 02/23/18 20:00 02/23/18 20:02 Temperature 98.7 F Pulse Rate 79 81 Respiratory Rate 20 24 Blood Pressure 175/96 H Pulse Oximetry 97 97 02/23/18 22:00 02/23/18 23:27 02/24/18 00:00 Temperature 99 F Pulse Rate 81 78 89 Respiratory Rate 20 24 Blood Pressure 160/83 H Pulse Oximetry 100 02/24/18 02:00 02/24/18 03:51 02/24/18 04:00 Temperature 98.8 F Pulse Rate 74 78 69 Respiratory Rate 18 22 Blood Pressure 150/78 H Pulse Oximetry 98 02/24/18 06:00 02/24/18 08:39 Temperature Pulse Rate 72 75 Respiratory Rate 18 Blood Pressure Pulse Oximetry 100 Intake & Output 02/23/18 02/24/18 02/24/18 18:59 06:59 18:59 Intake Total 714 / 714 500 / 500 Output Total 2250 / 2250 550 / 550 Balance -1536 / -1536 -50 / -50 Weight 79.9 kg Intake: IV 630 / 630 500 / 500 Versed Inj 50 mg In 50 ml @ 2 30 / 30 MG/HR 2 mls/hr IV.CONT TITRATE PRN Rx#:[id number] Diprivan 1000 mg/100 ml Inj 1, 50 / 50 000 mg In 100 ml @ 5 MCG/KG/MIN 2.529 mls/hr IV.CONT TITRATE PRN Rx#:[id number] Zyvox 600 mg Premix 300 ML @ 300 / 300 300 / 300 300 mls/hr IV.SIG Q12H [facility] Rx#: [id number] Zosyn 4.5 GM Premix 4.5 gm In 200 / 200 200 / 200 100 ml @ 200 mls/hr IV.SIG Q6H [facility] Rx#:[id number] fentaNYL 10 mcg/mL Premix Drip 50 / 50 2,500 mcg In 250 ml @ 50 MCG/HR 5 mls/hr IV.SIG TITRATE PRN Rx #:[id number] Tube Feeding 24 / 24 Tube Irrigant 60 / 60 Output: Urine Amount (Catheter) 2250 / 2250 550 / 550 Indwelling Urethral Catheter 2250 / 2250 Straight 550 / 550 Other: Date of Last Bowel Movement 02/21/18 02/24/18 # Bowel Movements 1 1 Result Diagrams: 02/24/18 07:05 02/24/18 07:01 Other Results: Microbiology 02/21/18 22:50 Sputum - Endotracheal Gram Stain - Final 02/21/18 22:50 Sputum - Endotracheal Sputum Culture - Preliminary Klebsiella pneumoniae Staphylococcus aureus 02/18/18 08:50 Blood - Peripheral Aerobic Blood Culture - Final No growth in 5 days 02/18/18 08:50 Blood - Peripheral Anaerobic Blood Culture - Final No growth in 5 days 02/18/18 08:58 Blood - Peripheral Aerobic Blood Culture - Final No growth in 5 days 02/18/18 08:58 Blood - Peripheral Anaerobic Blood Culture - Final No growth in 5 days 02/18/18 08:15 Sputum - Endotracheal Gram Stain - Final 02/18/18 08:15 Sputum - Endotracheal Sputum Culture - Final Staphylococcus aureus Haemophilus influenzae Imaging: Chest X-Ray 02/15/18 00:00 CONCLUSION: 1. ET tube tip in good position. 2. Subsegmental consolidative infiltrate left lower lung. Chest X-Ray 02/18/18 07:28 CONCLUSION: Worsening bibasilar densities likely atelectasis. Chest X-Ray 02/20/18 08:33 CONCLUSION: Unchanged bibasal pulmonary infiltrates. Chest X-Ray 02/20/18 23:13 CONCLUSION: Endotracheal tube and orogastric tube in satisfactory position. Stable airspace disease compared with earlier exam. Liver Ultrasound 02/21/18 00:00 CONCLUSION: 1. Diffusely increased hepatic echogenicity without volume loss most consistent with hepatic steatosis versus medical liver disease. Chest X-Ray 02/21/18 14:22 CONCLUSION: 1. Stable ETT and NGT. 2. Slight improved perihilar opacities which may reflect improved fluid balance. 3. Persistent bilateral lower lung zone airspace consolidation. Chest X-Ray 02/23/18 09:31 CONCLUSION: 1. Stable ETT and NGT. 2. Cardiomegaly with slight improved positive fluid balance. 3. Slightly improved bilateral lower lobe airspace disease. Objective Remarks: GENERAL: 63-year-old female currently resting in bed on room air no acute distress SKIN: Warm and dry. HEAD: Atraumatic. Normocephalic. EYES: Pupils equal and round. No scleral icterus. No injection or drainage. ENT: No nasal bleeding or discharge. Mucous membranes pink and moist. NECK: Trachea midline. No JVD. CARDIOVASCULAR: Regular rate and rhythm. S1, S2. No S4. Without murmur RESPIRATORY: No accessory muscle use. Clear to auscultation. Breath sounds equal bilaterally. GASTROINTESTINAL: Abdomen soft, non-tender, nondistended. Hepatic and splenic margins not palpable. MUSCULOSKELETAL: Extremities without clubbing, cyanosis, or edema. No obvious deformities. NEUROLOGICAL: Awake and alert. No obvious cranial nerve deficits. Motor grossly within normal limits. Five out of 5 muscle strength in the arms and legs. Normal speech. PSYCHIATRIC: Appropriate mood and affect; insight and judgment normal. Assessment and Plan - Assessment and Plan Plan: Neuro: -Acetaminophen 650 p.o. every 6 hours as needed fever -Monitor neuro status and limit sedatives Resp: Severe angioedema Allergic reaction Acute respiratory Failure -Nasal cannula to maintain saturations greater or equal to 92% -Incentive spirometry while awake -Albuterol/ipratropium aerosols every 6 hours while awake and as needed albuterol aerosols every 2 hours. Dyspnea -CXR 02/21: Slight improved perihilar opacities which may reflect improved fluid balance. Persistent bilateral lower lung zone airspace consolidation -Dexamethasone 4 mg IV q6h -Continue with the pain 20 mg IV twice daily CVS hypertension Dyslipidemia -On metoprolol 25mg BID, increase to 50 mg twice daily. On 3 times daily at home. Restart amlodipine 5 mg daily. 10 mg daily. Hold lisinopril -Monitor HR and BP keep MAP>65mmhg -Labetalol, Hydralazine PRN -Rosuvastatin has been switched to atorvastatin 20 mill grams daily substitution GI: Hepatic steatosis likely -Elevated LFT's -Advance diet as tolerated -IV famotidine. -US liver: Diffusely increased hepatic echogenicity without volume loss most consistent with hepatic steatosis versus medical liver disease. /FEN/renal: -Monitor renal function, electrolytes replacement per protocol. -on Lasix 40mg daily has been held ID: Klebsiella, hemoptysis influenza, staph aureus URI C. difficile -Monitor for signs of infections ( Fever, WBC) -Follow up on Blood : NGTD -Sputum cx 02/18: Staph Aureus, Haemophilus influenza -Continue ceftriaxone, ID is following. -Follow up sputum cx 02/21: GNR -C-diff PCR positive today will continue Vanco 125mg QID ENDO: -SSI for glycemic control AC/at bedtime DVT GI prophylaxis -Teds SCDs -Subcu enoxaparin -Famotidine Level 2 follow-up. Patient is stable from a critical care medicine standpoint. Assign care to hospitalist in a.m. 02/25 okay to transfer from ICU.
[2018-02-24] MEDS ORDERED: amLODIPine 5 MG Tablet PO ONE (11:02)
[2018-02-24] MEDS ORDERED: Acetaminophen 325 MG Tablet PO PRN (11:06)
--- NOTE | 2018-02-24 14:01 | P.PNID ---
Subjective Remarks: Ms. Montgomery is a 63-year-old -[place] female who presented for evaluation of possible allergic reaction. Patient reported that she had been having swelling of the tongue for the past 2-3 hours prior to admission. The patient and family member there went to [employer] for lunch and thereafter she started developing swelling of the tongue. Patient tried Benadryl at home with minimal relief. Patient was essentially forced to come to the hospital. Patient denies any prior history of similar incidents in the past. Patient reportedly has had shellfish in the past without any problems until this admission. She has been taking lisinopril for many years. Patient's son who is in the room reports that patient has been having cough over the last several weeks and likely stopped it sure if this actually happened. Patient was evaluated in the emergency department and since her airway was significantly compromise she was taken to the operating room for a fiber optic nasal intubation by the air export logistics manager. Thereafter patient remains in the ICU under the care of operations expert. Currently she is nasally intubated. Upon discussion with the respiratory therapist it appears that patient has copious amounts of secretions. Patient also continues to have low-grade fevers despite broad-spectrum antibiotics in the form of Zosyn and vancomycin. Infectious diseases consulted for evaluation and management of persistent fevers and persistent pneumonia in a patient with angioedema. Overnight events reviewed. No rash Diarrhea yday stool cdiff positive Extubated. Antibiotics: Zosyn IV Zyvox IV Lines: Lines ok Past Medical History: reviewed Allergies/Adverse Reactions: Allergies hydrocodone Allergy (Severe, Unverified 02/15/18 16:45) Dizziness shellfish derived Allergy (Verified 02/15/18 16:45) Anaphylaxis Objective Vital Signs 02/23/18 14:00 02/23/18 15:43 02/23/18 16:00 Temperature 99 F Pulse Rate 98 H 94 H 81 Respiratory Rate 20 25 H Blood Pressure 149/79 H Pulse Oximetry 95 02/23/18 18:00 02/23/18 19:56 02/23/18 20:00 Temperature 98.7 F Pulse Rate 79 79 81 Respiratory Rate 20 24 Blood Pressure 175/96 H Pulse Oximetry 97 02/23/18 20:02 02/23/18 22:00 02/23/18 23:27 Temperature Pulse Rate 81 78 Respiratory Rate 20 Blood Pressure Pulse Oximetry 97 02/24/18 00:00 02/24/18 02:00 02/24/18 03:51 Temperature 99 F Pulse Rate 89 74 78 Respiratory Rate 24 18 Blood Pressure 160/83 H Pulse Oximetry 100 02/24/18 04:00 02/24/18 06:00 02/24/18 08:39 Temperature 98.8 F Pulse Rate 69 72 75 Respiratory Rate 22 18 Blood Pressure 150/78 H Pulse Oximetry 98 100 02/24/18 11:26 Temperature Pulse Rate 91 H Respiratory Rate 20 Blood Pressure Pulse Oximetry Intake & Output 02/23/18 02/24/18 02/24/18 18:59 06:59 18:59 Intake Total 714 / 714 500 / 500 Output Total 2250 / 2250 550 / 550 Balance -1536 / -1536 -50 / -50 Weight 79.9 kg Intake: IV 630 / 630 500 / 500 Versed Inj 50 mg In 50 ml @ 2 30 / 30 MG/HR 2 mls/hr IV.CONT TITRATE PRN Rx#:[id number] Diprivan 1000 mg/100 ml Inj 1, 50 / 50 000 mg In 100 ml @ 5 MCG/KG/MIN 2.529 mls/hr IV.CONT TITRATE PRN Rx#:[id number] Zyvox 600 mg Premix 300 ML @ 300 / 300 300 / 300 300 mls/hr IV.SIG Q12H [facility] Rx#: [id number] Zosyn 4.5 GM Premix 4.5 gm In 200 / 200 200 / 200 100 ml @ 200 mls/hr IV.SIG Q6H [facility] Rx#:[id number] fentaNYL 10 mcg/mL Premix Drip 50 / 50 2,500 mcg In 250 ml @ 50 MCG/HR 5 mls/hr IV.SIG TITRATE PRN Rx #:[id number] Tube Feeding 24 / 24 Tube Irrigant 60 / 60 Output: Urine Amount (Catheter) 2250 / 2250 550 / 550 Indwelling Urethral Catheter 2250 / 2250 Straight 550 / 550 Other: Date of Last Bowel Movement 02/21/18 02/24/18 02/24/18 # Bowel Movements 1 1 02/21/18 22:50 Sputum - Endotracheal Gram Stain - Final 02/21/18 22:50 Sputum - Endotracheal Sputum Culture - Final Klebsiella pneumoniae Staphylococcus aureus 02/18/18 08:50 Blood - Peripheral Aerobic Blood Culture - Final No growth in 5 days 02/18/18 08:50 Blood - Peripheral Anaerobic Blood Culture - Final No growth in 5 days 02/18/18 08:58 Blood - Peripheral Aerobic Blood Culture - Final No growth in 5 days 02/18/18 08:58 Blood - Peripheral Anaerobic Blood Culture - Final No growth in 5 days 02/18/18 08:15 Sputum - Endotracheal Gram Stain - Final 02/18/18 08:15 Sputum - Endotracheal Sputum Culture - Final Staphylococcus aureus Haemophilus influenzae Lab - Hematology Results 02/23/18 02/24/18 09:45 07:05 WBC 24.8 H 17.4 H RBC 4.38 3.89 L Hgb 14.3 D 12.9 Hct 42.8 37.2 MCV 97.6 95.8 MCH 32.7 33.1 MCHC 33.5 34.5 RDW 12.6 12.3 Plt Count 378 D 302 MPV 8.2 7.7 Prelim Diff (Auto) Slide review pending Slide review pending Neut % (Auto) 80.9 H 84.9 H Lymph % (Auto) 10.8 4.6 L [place] % (Auto) 8.0 10.3 H Eos % (Auto) 0.0 0.0 Baso % (Auto) 0.3 0.2 Neut # (Auto) 20.0 H 14.8 H Lymph # (Auto) 2.7 0.8 L [place] # (Auto) 2.0 H 1.8 H Eos # (Auto) 0.0 0.0 Baso # (Auto) 0.1 0.0 WBC Differential Manual diff final Manual diff final Seg Neuts % (Manual) 70 82 H Band Neuts % (Manual) 2 1 Lymphocytes % (Manual) 17 13 Monocytes % (Manual) 10 H 4 Promyelocytes % (Man) 1 H Abs Neuts (Manual) 18.1 H 14.4 H Differential Comment . . Platelet Estimate Normal Normal Platelet Morphology Normal Normal RBC Morphology Normal Normal Lab - Chemistry Results 02/22/18 02/23/18 02/23/18 17:15 00:14 05:07 Sodium Potassium Chloride Carbon Dioxide Anion Gap BUN Creatinine Estimated GFR POC Glucose 148 H 111 H 125 H Random Glucose Calcium Phosphorus Magnesium Total Bilirubin AST ALT Alkaline Phosphatase Total Protein Albumin Procalcitonin 02/23/18 02/23/18 02/23/18 05:56 12:47 17:45 Sodium 139 Potassium 4.5 Chloride 105 Carbon Dioxide 21.9 Anion Gap 12 BUN 39 H Creatinine 1.04 H Estimated GFR 65 L POC Glucose 163 H 128 H Random Glucose 122 H Calcium 8.2 L Phosphorus 3.7 Magnesium 2.6 H Total Bilirubin 0.7 AST 45 H ALT 76 H Alkaline Phosphatase 40 L Total Protein 7.0 Albumin 2.6 L Procalcitonin 02/23/18 02/24/18 02/24/18 23:26 05:39 07:01 Sodium 135 L Potassium 4.2 Chloride 101 Carbon Dioxide 21.9 Anion Gap 12 BUN 42 H Creatinine 1.11 H Estimated GFR 60 L POC Glucose 181 H 125 H Random Glucose 128 H Calcium 8.9 Phosphorus 4.3 Magnesium 2.8 H Total Bilirubin 0.6 AST 32 ALT 67 H Alkaline Phosphatase 40 L Total Protein 6.8 Albumin 2.7 L Procalcitonin 02/24/18 02/24/18 09:31 12:59 Sodium Potassium Chloride Carbon Dioxide Anion Gap BUN Creatinine Estimated GFR POC Glucose 143 H Random Glucose Calcium Phosphorus Magnesium Total Bilirubin AST ALT Alkaline Phosphatase Total Protein Albumin Procalcitonin 0.13 H Imaging: ITS Impressions Liver Ultrasound 02/21/18 00:00 CONCLUSION: 1. Diffusely increased hepatic echogenicity without volume loss most consistent with hepatic steatosis versus medical liver disease. Chest X-Ray 02/23/18 09:31 CONCLUSION: 1. Stable ETT and NGT. 2. Cardiomegaly with slight improved positive fluid balance. 3. Slightly improved bilateral lower lobe airspace disease. Physical Exam: GENERAL: Sedated, on the vent. Morbidly obese. SKIN: Cool and dry, no generalized rash HEAD: Atraumatic. Normocephalic. No temporal or scalp tenderness. EYES: Pupils equal round and reactive. Scleral icterus. No injection or drainage. No petechia ENT: NAD NECK: Trachea midline. Supple, nontender, no meningeal signs. CARDIOVASCULAR: HS audible. RESPIRATORY: Air entry equal bilaterally. Clear to auscultation bilaterally. GASTROINTESTINAL: Abdomen soft,NT MUSCULOSKELETAL: Extremities without clubbing, cyanosis. NEUROLOGICAL: Sedated Psych could not be assessed IV line sites ok. Assessment and Plan - Plan Sepsis persistent (fever, leucocytosis, pneumonia) Health care vs aspiration Pneumonia Persistent fever: ? Drug fever, ? new infection MSSA and H.Influenza pneumonia. Angioedema on admission: Shellfish versus TROY-I. Primary team managing. Nasal intubation, on ventilator. Recs: DC Zosyn IV DC Zyvox IV Start Ceftriaxone IV(covers Staph and H.influenza, would like to avoid levaquin due to cdiff) Continue Oral vanco. Follow cultures Follow clinical course. jazzy HERNÁNDEZ
[2018-02-24] MEDS: Metoprolol Tartrate 50 MG Tablet PO SCH (21:52)
[2018-02-25] MEDS: Oral Hygiene Kit OROPHARYNG SCH ×3 (04:52→17:30)
[2018-02-25 07:47] LABS: Baso % (Auto) 0.2 % (0.0-2.0); Eos % (Auto) 0.1 % (0.0-4.0); Hematocrit 37.5 % (35.0-46.0); Hemoglobin 12.6 gm/dL (11.6-15.3); Lymph # (Auto) 1.7 th/mm3 (1.0-4.8); Lymph % (Auto) 8.6 % (9.0-44.0); Mean Corpuscular HGB Conc 33.7 % (32.0-36.0); Mean Corpuscular Hemoglobin 32.3 pg (27.0-34.0); Mean Platelet Volume 8.1 fL (7.0-11.0); Mono # (Auto) 1.8 th/mm3 (0.0-0.9); Mono % (Auto) 9.3 % (0.0-8.0); Neut % (Auto) 81.8 % (16.0-70.0); Platelet Count 346 th/mm3 (150-450); Red Blood Count 3.91 mil/mm3 (4.00-5.30); Red Cell Distribution Width 12.3 % (11.6-17.2); White Blood Count 19.6 th/mm3 (4.0-11.0)
[2018-02-25 08:12] LABS: Albumin 2.7 g/dL (3.4-5.0); Anion Gap 10 meq/L (5-15); Aspartate Aminotransferase 43 U/L (15-37); Blood Urea Nitrogen 36 mg/dL (7-18); Carbon Dioxide 22.5 meq/L (21.0-32.0); Chloride 104 meq/L (98-107); Glomerular Filtration Rate 77 mL/min (>89); Glucose,Random 104 mg/dL (74-106); Magnesium 2.6 mg/dL (1.5-2.5); Potassium 4.5 meq/L (3.5-5.1); Sodium 136 meq/L (136-145)
[2018-02-25 08:13] LABS: Alanine Aminotransferase 84 U/L (10-53)
[2018-02-25 08:15] LABS: Alkaline Phosphatase 44 U/L (45-117); Total Protein 6.9 g/dL (6.4-8.2)
[2018-02-25 08:20] LABS: Free T4 (Free Thyroxine) 0.76 ng/dL (0.76-1.46); Thyroid Stimulating Hormone 1.23 uIU/mL (0.358-3.740)
[2018-02-25] MEDS: Insulin NovoLIN Regular Correctional Sugar Inj SQ SCH ×4 (08:27→21:30)
[2018-02-25] MEDS: Beneprotein Powder Packet G-TUBE SCH ×3 (08:27→17:30)
[2018-02-25] MEDS: Chlorhexidine 0.12% Oral Kit 15 ML UDC OROPHARYNG SCH ×2 (08:27→21:27)
[2018-02-25 08:42] LABS: Lymphocytes 6 % (9-44); Monocytes 9 % (0-8); Platelet Estimate Normal (Normal); Platelet Morphology Normal (Normal)
[2018-02-25 08:43] LABS: RBC Morphology Normal (Normal)
[2018-02-25] MEDS: Metoprolol Tartrate 50 MG Tablet PO SCH ×2 (08:47→21:30)
[2018-02-25] MEDS: Famotidine PF Inj 20 MG/2 ML Vial IV.PUSH SCH ×2 (08:48→21:30)
[2018-02-25] MEDS: Enoxaparin Inj 40 MG/0.4 ML Syringe SQ SCH (08:48)
[2018-02-25] MEDS: amLODIPine 5 MG Tablet PO SCH (08:48)
--- NOTE | 2018-02-25 16:59 | P.PNIM ---
Subjective Interval history: Assuming care in a 63-year-old female who is transferred out of the ICU following admission for allergic reaction to food, likely shellfish, that resulted in angioedema and intubation in the ICU for 1 week. Patient had issues with hypertension today, and urinary retention. She does not feel like she is edematous but may still be clearing extra fluid from her severe reaction. Her daughter remarks that she does not seem herself from a personality standpoint. She is alert and oriented x3 however Physical Exam Vital signs: Vital Signs 02/24/18 18:00 02/24/18 20:00 02/24/18 20:18 Temperature 97.8 F Pulse Rate 87 83 81 Respiratory Rate 19 16 Blood Pressure 133/108 H Pulse Oximetry 94 L 98 02/25/18 00:00 02/25/18 01:11 02/25/18 04:00 Temperature 98 F 98 F 98.5 F Pulse Rate 73 73 75 Respiratory Rate 16 19 16 Blood Pressure 169/82 H 169/82 H 169/82 H Pulse Oximetry 94 L 94 L 94 L 02/25/18 08:00 02/25/18 12:00 02/25/18 13:47 Temperature 98.4 F 98.0 F Pulse Rate 72 68 84 Respiratory Rate 16 17 20 Blood Pressure 183/93 H 194/96 H Pulse Oximetry 98 97 02/25/18 13:48 Temperature Pulse Rate Respiratory Rate Blood Pressure Pulse Oximetry 98 Intake & Output 02/24/18 02/25/18 02/25/18 18:59 06:59 18:59 Intake Total 600 / 600 100 / 100 100 / 100 Output Total 950 / 950 700 / 700 Balance -350 / -350 -600 / -600 100 / 100 Intake: IV 100 / 100 100 / 100 Rocephin Inj 1,000 MG In NS Inj 100 / 100 100 / 100 100 ML @ 200 mls/hr IV.SIG Q24H [facility] Rx#:[id number] Oral 600 / 600 Output: Urine Amount (Catheter) 950 / 950 700 / 700 Straight 950 / 950 700 / 700 Other: # Voids 1 Date of Last Bowel Movement 02/24/18 02/25/18 Narrative: GENERAL: AAOx3, no acute distress, obese SKIN: Warm and dry. No rashes HEAD: Atruamtic, normocephalic. EYES: No scleral icterus. No injection or drainage. ENT: Moist mucous membranes, patent nares, no erythema of oropharynx. NECK: Supple, trachea midline. No JVD or lymphadenopathy. Normal thyroid. CARDIOVASCULAR: Regular rate and rhythm. No murmurs, gallops, or rubs. RESPIRATORY: Breath sounds clear equal bilaterally. No crackles or wheezes. No accessory muscle use. GASTROINTESTINAL: Abdomen soft, non-tender, nondistended, normal active bowel sounds MUSCULOSKELETAL: No cyanosis, or edema. NEURO: CN II-XII grossly intact, no focal deficits, no slurring of speech - Urinary Catheter Management Indwelling Urethral Catheter Cath placed during this visit: yes, but has since been removed by the nurse Reason for continuing: Acute urinary retention Insertion date: 02/25/18 Insertion time: 08:20 Removal date: 02/23/18 Removal time: 18:00 Straight Cath placed during this visit: no Reason for continuing: Acute urinary retention Results - Labs CBC & Chem 7: 02/25/18 06:38 02/25/18 06:38 Laboratory Results - last 24 hr 02/24/18 02/24/18 02/25/18 18:24 20:25 06:38 WBC RBC Hgb Hct MCV MCH MCHC RDW Plt Count MPV Prelim Diff (Auto) Neut % (Auto) Lymph % (Auto) [place] % (Auto) Eos % (Auto) Baso % (Auto) Neut # (Auto) Lymph # (Auto) [place] # (Auto) Eos # (Auto) Baso # (Auto) WBC Differential Seg Neuts % (Manual) Band Neuts % (Manual) Lymphocytes % (Manual) Monocytes % (Manual) Abs Neuts (Manual) Differential Comment Platelet Estimate Platelet Morphology RBC Morphology Sodium 136 Potassium 4.5 Chloride 104 Carbon Dioxide 22.5 Anion Gap 10 BUN 36 H Creatinine 0.90 Estimated GFR 77 L POC Glucose 155 H 150 H Random Glucose 104 Calcium 9.0 Magnesium 2.6 H Total Bilirubin 0.5 AST 43 H ALT 84 H Alkaline Phosphatase 44 L Total Protein 6.9 Albumin 2.7 L TSH Free T4 02/25/18 02/25/18 02/25/18 06:38 06:38 07:37 WBC 19.6 H RBC 3.91 L Hgb 12.6 Hct 37.5 MCV 96.0 MCH 32.3 MCHC 33.7 RDW 12.3 Plt Count 346 MPV 8.1 Prelim Diff (Auto) Slide review pending Neut % (Auto) 81.8 H Lymph % (Auto) 8.6 L [place] % (Auto) 9.3 H Eos % (Auto) 0.1 Baso % (Auto) 0.2 Neut # (Auto) 16.0 H Lymph # (Auto) 1.7 [place] # (Auto) 1.8 H Eos # (Auto) 0.0 Baso # (Auto) 0.0 WBC Differential Manual diff final Seg Neuts % (Manual) 83 H Band Neuts % (Manual) 2 Lymphocytes % (Manual) 6 L Monocytes % (Manual) 9 H Abs Neuts (Manual) 16.7 H Differential Comment . Platelet Estimate Normal Platelet Morphology Normal RBC Morphology Normal Sodium Potassium Chloride Carbon Dioxide Anion Gap BUN Creatinine Estimated GFR POC Glucose 131 H Random Glucose Calcium Magnesium Total Bilirubin AST ALT Alkaline Phosphatase Total Protein Albumin TSH 1.230 Free T4 0.76 02/25/18 02/25/18 11:49 15:58 WBC RBC Hgb Hct MCV MCH MCHC RDW Plt Count MPV Prelim Diff (Auto) Neut % (Auto) Lymph % (Auto) [place] % (Auto) Eos % (Auto) Baso % (Auto) Neut # (Auto) Lymph # (Auto) [place] # (Auto) Eos # (Auto) Baso # (Auto) WBC Differential Seg Neuts % (Manual) Band Neuts % (Manual) Lymphocytes % (Manual) Monocytes % (Manual) Abs Neuts (Manual) Differential Comment Platelet Estimate Platelet Morphology RBC Morphology Sodium Potassium Chloride Carbon Dioxide Anion Gap BUN Creatinine Estimated GFR POC Glucose 131 H 151 H Random Glucose Calcium Magnesium Total Bilirubin AST ALT Alkaline Phosphatase Total Protein Albumin TSH Free T4 Assessment and Plan - Plan Severe allergic reaction with angioedema and respiratory failure Likely reaction to shellfish after eating at [facility] Patient was a difficult intubation, remained on the vent for 1 week Continuing dexamethasone 4 mg IV every 6, will plan for weaning prior to discharge Urinary retention Possibly related to overall fluid excess and possible urethral edema Catheter placed for urinary retention, will reevaluate tomorrow when patient is working with PT and more ambulatory Hypertension Continue metoprolol, amlodipine Clonidine as needed Plan for reducing steroids Elevated LFTs Possible hepatic steatosis on ultrasound An acute setting of great stress this should be rechecked in the future before any conclusions or trauma Will monitor periodically for LFT trending downward h/o edema Patient normally takes Lasix 20 mg daily at home, it was held to simplify her treatment If urinary retention continues, consider resumption of Lasix URI and C. difficile Sputum culture grew out staph aureus and Haemophilus influenza C. difficile PCR was positive, continue vancomycin 125 mg p.o. 4 times daily Type 2 diabetes Accu-Cheks with sliding scale insulin coverage Diabetic diet DVT Prophylaxis Lovenox
[2018-02-25 17:26] LABS: Hemoglobin A1c 5.1 % (4.3-6.0)
[2018-02-26] MEDS: Oral Hygiene Kit OROPHARYNG SCH ×4 (04:02→23:39)
[2018-02-26] MEDS: Chlorhexidine 0.12% Oral Kit 15 ML UDC OROPHARYNG SCH ×2 (07:55→22:05)
[2018-02-26] MEDS: Insulin NovoLIN Regular Correctional Sugar Inj SQ SCH ×4 (07:55→22:05)
[2018-02-26] MEDS ORDERED: Sodium Chloride 0.9% 2 ML Flush PRN IV.FLUSH (08:57)
[2018-02-26] MEDS: Metoprolol Tartrate 50 MG Tablet PO SCH ×2 (09:16→22:05)
[2018-02-26] MEDS: Enoxaparin Inj 40 MG/0.4 ML Syringe SQ SCH (09:16)
[2018-02-26] MEDS: Beneprotein Powder Packet G-TUBE SCH ×3 (09:17→17:28)
[2018-02-26] MEDS: amLODIPine 5 MG Tablet PO SCH (09:17)
[2018-02-26] MEDS: Famotidine PF Inj 20 MG/2 ML Vial IV.PUSH SCH ×2 (09:17→22:05)
[2018-02-26] MEDS: Sodium Chloride 0.9% 2 ML Flush BID IV.FLUSH SCH ×2 (09:17→22:06)
--- NOTE | 2018-02-26 18:13 | P.PNIM ---
Subjective Interval history: Patient is up in chair today and appears more alert, more energetic, appropriately conversive. Physical Exam Vital signs: Vital Signs 02/25/18 19:57 02/25/18 20:00 02/25/18 20:57 Temperature 98.5 F Pulse Rate 75 72 65 Respiratory Rate 18 15 Blood Pressure 156/88 H Pulse Oximetry 95 02/25/18 23:45 02/26/18 00:00 02/26/18 04:00 Temperature 98.6 F 98.4 F Pulse Rate 63 63 66 Respiratory Rate 18 19 Blood Pressure 158/81 H 167/78 H Pulse Oximetry 97 95 02/26/18 08:00 02/26/18 08:14 02/26/18 11:43 Temperature 98.5 F Pulse Rate 65 88 66 Respiratory Rate 18 15 15 Blood Pressure 187/90 H Pulse Oximetry 92 L 02/26/18 12:00 02/26/18 16:00 Temperature 98.1 F 98.1 F Pulse Rate 68 74 Respiratory Rate 18 18 Blood Pressure 159/92 H 173/91 H Pulse Oximetry 96 96 Intake & Output 02/25/18 02/26/18 02/26/18 18:59 06:59 18:59 Intake Total 660 / 660 100 / 100 Output Total 600 / 600 1850 / 1850 1300 / 1300 Balance 60 / 60 -1850 / -1850 -1200 / -1200 Weight 77.2 kg Intake: IV 100 / 100 100 / 100 Rocephin Inj 1,000 MG In NS Inj 100 / 100 100 / 100 100 ML @ 200 mls/hr IV.SIG Q24H SHAILA Rx#:[id number] Oral 560 / 560 Output: Urine 1850 / 1850 1300 / 1300 Urine Amount (Catheter) 600 / 600 Indwelling Urethral Catheter 600 / 600 Other: Date of Last Bowel Movement 02/25/18 02/25/18 02/25/18 # Bowel Movements 1 # Incontinent Bowel Movements 6 Narrative: GENERAL: AAOx3, no acute distress, obese SKIN: Warm and dry. No rashes HEAD: Atruamtic, normocephalic. EYES: No scleral icterus. No injection or drainage. ENT: Moist mucous membranes, patent nares, no erythema of oropharynx. NECK: Supple, trachea midline. No JVD or lymphadenopathy. Normal thyroid. CARDIOVASCULAR: Regular rate and rhythm. No murmurs, gallops, or rubs. RESPIRATORY: Breath sounds clear equal bilaterally. No crackles or wheezes. No accessory muscle use. GASTROINTESTINAL: Abdomen soft, non-tender, nondistended, normal active bowel sounds MUSCULOSKELETAL: No cyanosis, or edema. NEURO: CN II-XII grossly intact, no focal deficits, no slurring of speech - Urinary Catheter Management Indwelling Urethral Catheter Cath placed during this visit: yes, but has since been removed by the nurse Reason for continuing: Decision to DC catheter Insertion date: 02/25/18 Insertion time: 08:20 Removal date: 02/26/18 Removal time: 15:50 Straight Cath placed during this visit: no Reason for continuing: Acute urinary retention Results - Labs CBC & Chem 7: 02/25/18 06:38 02/25/18 06:38 Laboratory Results - last 24 hr 02/25/18 02/25/18 02/26/18 06:38 20:08 07:01 POC Glucose 152 H 119 H Hemoglobin A1c 5.1 02/26/18 02/26/18 10:58 16:31 POC Glucose 169 H 164 H Hemoglobin A1c Assessment and Plan - Plan Severe allergic reaction with angioedema and respiratory failure Likely reaction to shellfish after eating at [employer] Patient was a difficult intubation, remained on the vent for 1 week Changing dexamethasone from 4 mg every 6 hours to every 12 starting tomorrow morning, continue weaning Urinary retention Possibly related to overall fluid excess and possible urethral edema Catheter removed today, evaluate ability to urinate overnight Hypertension Continue metoprolol, amlodipine Clonidine as needed Elevated LFTs Possible hepatic steatosis on ultrasound An acute setting of great stress this should be rechecked in the future before any conclusions or trauma Will monitor periodically for LFT trending downward h/o edema Patient normally takes Lasix 20 mg daily at home, it was held to simplify her treatment If urinary retention continues, consider resumption of Lasix URI and C. difficile Sputum culture grew out staph aureus and Haemophilus influenza C. difficile PCR was positive, continue vancomycin 125 mg p.o. 4 times daily Type 2 diabetes Accu-Cheks with sliding scale insulin coverage Diabetic diet DVT Prophylaxis Lovenox
[2018-02-27] MEDS: Oral Hygiene Kit OROPHARYNG SCH (04:53)
[2018-02-27 09:22] VITALS: RESP 18
[2018-02-27] MEDS: Insulin NovoLIN Regular Correctional Sugar Inj SQ SCH (10:04)
[2018-02-27] MEDS: Chlorhexidine 0.12% Oral Kit 15 ML UDC OROPHARYNG SCH (10:05)
[2018-02-27] MEDS: Famotidine PF Inj 20 MG/2 ML Vial IV.PUSH SCH (10:09)
[2018-02-27] MEDS: Metoprolol Tartrate 50 MG Tablet PO SCH (10:10)
[2018-02-27] MEDS: amLODIPine 5 MG Tablet PO SCH (10:11)
[2018-02-27] MEDS: Sodium Chloride 0.9% 2 ML Flush BID IV.FLUSH SCH (10:26)
[2018-02-27] MEDS: Enoxaparin Inj 40 MG/0.4 ML Syringe SQ SCH (10:49)
--- NOTE | 2018-02-27 11:29 | P.DCO ---
- Physical Therapy Order: Evaluate and treat - Home Health Nursing Order: Medical education, Signs/symptoms of disease process, Diabetic education , Nursing assessment with vital signs - Case Management Consult No - Certification I have seen patient Faustina Elmore on 02/27/18. My clinical findings support the need for the requested home health care services because: Limited mobility due to disease progression, Deconditioned with increased weakness, Limited ability to care for self, High risk of falls, Infection with risk of complications I certify that my clinical findings support that this patient is homebound because: Unsteady gait/balance, Unsafe to leave home unassisted, Unable to use public transportation
[2018-02-27] MEDS: Beneprotein Powder Packet G-TUBE SCH (11:32)
--- NOTE | 2018-02-27 11:35 | P.DS ---
Date of admission: 02/15/18 17:41 Primary care physician: Philippe Redd MD Brief History from admission: 63-year-old female that presents for evaluation of allergic reaction. Patient reports that she has been having swelling tongue for the past 2-3 hours. Per patient and family member they went to have [employer] today for lunch and after this she developed the swelling. Patient herself did not want to come but they took Benadryl with minimal relief. essentially "force the patient " To come here. Patient denies any history of this in the past. She does state that she had shellfish today but she had shellfish in the past. She denies any other medical issues. She does take lisinopril for many years. Denies any urinary or bowel movement issues. No chest pain or shortness of breath. Her tongue is severely swelling and most of the history is obtained from the as patient cannot really talk for the most part. In the emergency department her airway appears to be significantly compromised and she was taken to operating room for fibroscopy nasal intubation by industrial methods consultant. DS: Medications - Discharge Medications Prescriptions: azithromycin 500 mg PO DAILY 3 Days #3 tab methylprednisolone [Medrol (Conrado)] 1 dose PO PER PKG DIR #1 pack vancomycin [Vancocin] 125 mg PO QID 7 Days #28 cap DS: Summary Hospital Course: 63-year-old female who was admitted on 02/15/2018 following ingestion of shellfish with allergic reaction that resulted in angioedema and respiratory failure due to airway compromise. She was intubated and remained so in the ICU for approximately 1 week. During her stay she was diagnosed with Clostridium difficile and upper respiratory infection. She has been receiving vancomycin p.o. to address C. difficile and continuing on p.o. ceftriaxone to address upper respiratory infection, sputum culture grew out Klebsiella and staph aureus. Sensitivities are reviewed and patient be best served to go on p.o. doxycycline as well as continuing p.o. vancomycin for C. difficile. She is requesting to go home soon as possible, she has regained a lot of strength in last 2 days and is ambulating spontaneously using a walker for balance. Her will be at home and available to assist her if she needs it. I am recommending home health care with nursing and PT. she is on dexamethasone here and will continue her taper on Medrol Dosepak at home. - Time Spent with Patient Total time spent providing and/or coordinating discharge services: Less than 30 minutes - Quality: VTE Deep Vein Thrombosis/Pulmonary Embolism Present on Admission: No Exam Vital signs: Vital Signs 02/26/18 11:43 02/26/18 12:00 02/26/18 16:00 Temperature 98.1 F 98.1 F Pulse Rate 66 68 74 Respiratory Rate 15 18 18 Blood Pressure 159/92 H 173/91 H Pulse Oximetry 96 96 02/26/18 20:00 02/26/18 21:27 02/27/18 00:00 Temperature 98 F 97.7 F Pulse Rate 68 63 61 Respiratory Rate 18 17 18 Blood Pressure 163/79 H 147/70 H Pulse Oximetry 97 98 02/27/18 04:00 02/27/18 04:52 02/27/18 07:58 Temperature 79.3 F L Pulse Rate 60 54 L 68 Respiratory Rate 18 16 Blood Pressure 164/79 H Pulse Oximetry 96 02/27/18 08:00 Temperature 98 F Pulse Rate 76 Respiratory Rate 18 Blood Pressure 137/72 Pulse Oximetry 99 Intake & Output 02/26/18 02/27/18 02/27/18 18:59 06:59 18:59 Intake Total 860 / 860 Output Total 1750 / 1750 Balance -890 / -890 Weight 79.3 kg Intake: IV 100 / 100 Rocephin Inj 1,000 MG In NS Inj 100 / 100 100 ML @ 200 mls/hr IV.SIG Q24H SHAILA Rx#:[id number] Oral 760 / 760 Output: Urine 1300 / 1300 Urine Amount (Catheter) 450 / 450 Indwelling Urethral Catheter 450 / 450 Other: # Voids 2 Date of Last Bowel Movement 02/25/18 02/27/18 # Bowel Movements 2 1 # Incontinent Bowel Movements 2 Results Procedures completed during hospitalization: intubation 02/16/18 Labs on day of discharge: Labs from last 24 hours 02/27/18 02/26/18 02/26/18 07:40 21:20 16:31 POC Glucose 84 131 H 164 H - Impressions ITS Impressions Liver Ultrasound 02/21/18 00:00 CONCLUSION: 1. Diffusely increased hepatic echogenicity without volume loss most consistent with hepatic steatosis versus medical liver disease. Chest X-Ray 02/23/18 09:31 CONCLUSION: 1. Stable ETT and NGT. 2. Cardiomegaly with slight improved positive fluid balance. 3. Slightly improved bilateral lower lobe airspace disease. Discharge Plan - Discharge Disposition Patient Disposition: W/Home Health Service - Discharge Condition Condition: Good - Discharge Order Discharge Orders: Discharge Order (Routine); Ordered 02/27/18 Ordered By: Víctor Rodriguez - Physicians Team Primary Care Provider: Philippe Redd Attending Provider: Víctor Rodriguez Other Providers: Gisella Osei MD
[2018-02-27 13:25] VITALS: BP 148/85; PULSE 66; TEMP 97.8; O2SAT 97
--- NOTE | 2018-03-09 10:03 | P.PCN ---
Date of procedure: 02/15/18 Pre-op diagnosis: Angioedema vs. Anaphylaxis Post-op diagnosis: same Procedure: Awake Nasal Fiberoptic Intubation Patient presented to ED with extensive oral swelling following sushi dinner. No history of shellfish allergy, denies shortness of breath or rash/itching accompanying symptoms. She has been taking Lisinopril for many years for HTN; no other significant PMH. Patient received steroids, epinephrine and famotidine in ED without improvement. She is in mild distress, with tongue protrusion and copious secretions. Airway patency maintained-- no audible wheeze or stridor. Elected for controlled intubation in OR with ENT available for possible tracheostomy. Discussed emergent nature with patient and , who provide verbal consent to proceed. Patient transferred to OR on monitors in seated position with stable vital signs , maintaining oxygen saturation. Minimal sedation titrated for comfort; intranasal oxymetazoline administered and lubricated nasal trumpets of increasing size inserted for serial dilation. Proceeded with awake, nasal fiberoptic intubation via left nares, sedation deepened to facilitate passage of 6.0 ETT through vocal cords under direct visualization of daily. Tube position confirmed with auscultation of breath sounds bilaterally and consistent etCO2 tracing, tube secured at 23cm. General inhalational anesthesia initiated with sevoflurane, patient breathing spontaneously. Patient transferred to PACU sedated with mechanical ventilator support. CXR ordered. Procedure Time Out: 17:55 Vital signs Pre: BP 180/80 HR 130 SpO2 100% Post: BP 152/87 HR 124 SpO2 100% Medications: Midazolam 2mg, Ketamine 20mg, Glycopyrrolate 200mcg, 4% Lidocaine nebulized, 300mg Propofol Anesthesia: MAC (Minimal sedation for awake fiberoptic intubation, transitioned to general anesthesia), other Surgeon: April Greene (ENT Valerie in OR on standby for possible tracheostomy ) Estimated blood loss (mL): 0 Pathology: none sent Condition: stable Disposition: PACU
== END 2018-02-27 14:05 | disposition home health service (06) ==
LOC: NEPE 16:36 → NEDA 17:41 → HIMC 19:50 → N05 02-24 19:14
PROVIDERS: ADMIT Family Medicine; ATTEND Family Medicine